=== PATIENT | female | born 1945 | race Caucasian/White ===

== ENCOUNTER 2022-02-02 09:04 | Outpatient (CLI) | payer MEDICARE, BC, SELFPAY ==
[2022-02-02 13:48] LABS: Chloride* 101 mmol/L (96-114); Sodium* 135 mmol/L (135-149)
[2022-02-02 13:50] LABS: Cholesterol* 159 mg/dL (90-199)
[2022-02-02 13:51] LABS: Blood Urea Nitrogen* 12 mg/dL (7-30); Calcium* 9.4 mg/dL (8.4-10.6); Carbon Dioxide* 24 mmol/L (20-32); Creatinine* 0.7 mg/dL (0.5-1.5); Estimated Glomerular Filt Rate 89 ml/min; Glucose* 91 mg/dL (60-115); Triglycerides* 66 mg/dL (40-149)
[2022-02-02 13:52] LABS: HDL Cholesterol* 77 mg/dL (>=50); LDL Cholesterol Calculated 69 mg/dL (<100)
== END 2022-02-02 09:05 | disposition home or self-care (01) ==
PROVIDERS: PCP Family Medicine; Visit Provider Family Medicine
DX: Z00.00 Encounter for general adult medical examination without abnormal findings (principal); E78.5 Hyperlipidemia, unspecified; I10 Essential (primary) hypertension; E03.9 Hypothyroidism, unspecified; I48.91 Unspecified atrial fibrillation
CPT/HCPCS: 80048; 80061; 84443

== ENCOUNTER 2022-06-13 11:16 | Outpatient (CLI) | payer MEDICARE, BC, SELFPAY ==
[2022-06-13 18:22] LABS: Chloride* 102 mmol/L (96-114); Sodium* 135 mmol/L (135-149)
[2022-06-13 18:23] LABS: Potassium* 4.7 mmol/L (3.6-5.1)
[2022-06-13 18:25] LABS: Creatinine* 0.8 mg/dL (0.5-1.5); Estimated Glomerular Filt Rate 76 ml/min
[2022-06-13 18:26] LABS: Blood Urea Nitrogen* 13 mg/dL (7-30); Calcium* 9.1 mg/dL (8.4-10.6); Carbon Dioxide* 26 mmol/L (20-32); Glucose* 82 mg/dL (60-115)
== END 2022-06-13 11:17 | disposition home or self-care (01) ==
LOC: LONREF 11:17
PROVIDERS: PCP Family Medicine; Visit Provider Family Medicine
DX: Z01.818 Encounter for other preprocedural examination (principal)
CPT/HCPCS: 80048

== ENCOUNTER 2022-06-20 06:34 | Day surgery (SDC) | payer MEDICARE, BC, SELFPAY ==
[2022-06-20 07:00] VITALS: BP 174/74; PULSE 61; RESP 16; TEMP 36.9; O2SAT 98
[2022-06-20] MEDS: TETRACAINE 0.5% OPHTH 1 DROP EYE-RIGHT ×2 (07:00)
[2022-06-20] MEDS: KETOROLAC OPHTH 0.5% 1 DROP EYE-RIGHT ×2 (07:00→07:05)
[2022-06-20 07:17] VITALS: BMI 35.7
--- NOTE | 2022-06-20 07:21 | SUR.PREOP ---
The eye drops brought by the patient (Ketorolac and Prednisolone) are examined and I have determined they are labeled by the patient's pharmacy for this patient as prescribed by the surgeon. The bottles are intact, recently obtained and appear to be correct. [id number]
[2022-06-20] MEDS: TETRACAINE 0.5% OPHTH 2 DROP EYE-RIGHT (08:02)
--- NOTE | 2022-06-20 08:04 | SUR.OPER ---
I discussed the medication alert for latex allergy with intraop ordered medications. Dr. Marleny Parry is aware and was okay with continuing with medications.
[2022-06-20] MEDS: BALANCED SALT IRRIG SOLN 15 ML EYE-RIGHT (08:06)
--- NOTE | 2022-06-20 08:06 | W.ANESCHARGE ---
Anesthesia Charges Start Date/Time Anesthesia Start Date: 06/20/22 Anesthesia Start Time: 08:00 Stop Date/Time Anesthesia Stop Date: 06/20/22 Anesthesia Stop Time: 08:33 Summary Emergency: No Extremes of Age: Over 70-CPT 67968
[2022-06-20 08:30] VITALS: BP 165/79; PULSE 58; RESP 16; TEMP 36.7; O2SAT 97
--- NOTE | 2022-06-20 08:39 | W.PM.OPTPROC ---
Procedure Note Date of procedure: 06/20/22 Will [facility] bill your pro fee for this procedure?: Yes Procedure Description: SURGEON: Anne Parry MD PREOPERATIVE DIAGNOSIS: Nuclear sclerotic cataract, right eye. POSTOPERATIVE DIAGNOSIS: Nuclear sclerotic cataract, right eye. NAME OF OPERATION: Phacoemulsification of cataract with posterior chamber intraocular lens implantation in the right eye. ANESTHESIA: Topical. ESTIMATED BLOOD LOSS: Less than 2 cc. COMPLICATIONS: None. PATHOLOGY SPECIMEN: None. INDICATIONS: See consult note for details. The risks, benefits and alternatives of the procedure were explained to the patient, who elected to proceed and signed informed consent to do so. PROCEDURE: The patient was brought to the pre-holding area where the right eye was identified as the operative eye. I placed my initials above this eye. The patient received eye drops consisting of 0.5% tetracaine, 1% tropicamide, 10% phenylephrine, and 0.5% ketorolac. The patient was then brought to the operating room where the right eye was again identified as the operative eye. The eye was prepped with Betadine and draped in the usual sterile ophthalmic fashion. A #15 super-sharp blade was used to create a paracentesis site. 1% non-preserved intracameral lidocaine was injected into the anterior chamber. Endocoat was injected into the anterior chamber. A 2.4 mm keratome was used to create a three-plane self-sealing incision 1 mm anterior to the temporal limbus. A cystotome was used to create an anterior capsular leaflet. The Utrata forceps were used to extend this to form a continuous curvilinear capsulorrhexis. Hydrodissection was performed. The cataract was removed with phacoemulsification using the [id number] technique. The irrigation and aspiration tip was used to remove the remaining cortex. Healon was injected into the capsular bag. An CITLALI ZCB00 intraocular lens of 20.0 diopters was injected into the capsular bag. The irrigation and aspiration tip was used to remove the remaining viscoelastic. Balanced salt solution on a cannula was used to hydrate the wound, and the wound was found to be watertight. The pupil was noted to be round. DISPOSITION: The patient was taken to the recovery room and discharged to home in stable condition. The patient was instructed to call me or go to the emergency department with any sudden change, including dramatic loss of vision, severe pain in the eye or eyebrow region, nausea, or vomiting. The patient will follow up in the clinic tomorrow morning. Surgeon: Anne Parry MD
--- NOTE | 2022-06-20 08:44 | W.ANESCHARGE ---
Anesthesia Charges Start Date/Time Anesthesia Start Date: 06/20/22 Anesthesia Start Time: 08:00 Stop Date/Time Anesthesia Stop Date: 06/20/22 Anesthesia Stop Time: 08:33 Summary Emergency: No Extremes of Age: Over 69-CPT 52769
== END 2022-06-20 09:08 | disposition home or self-care (01) ==
PROVIDERS: PCP Family Medicine; Visit Provider Ophthalmology
PROC: (CPT 66984; principal; 2022-06-20 06:45)
DX: H25.11 Age-related nuclear cataract, right eye (principal)
CPT/HCPCS: 66984; 00142; 99100; A9270; J2250; J3010; V2632

== ENCOUNTER 2022-07-04 07:10 | Day surgery (SDC) | payer MEDICARE, BC, SELFPAY ==
[2022-07-04] MEDS: TETRACAINE 0.5% OPHTH 1 DROP EYE-LEFT ×2 (07:36→07:44)
[2022-07-04] MEDS: KETOROLAC OPHTH 0.5% 1 DROP EYE-LEFT ×2 (07:42→07:50)
[2022-07-04 07:43] VITALS: BMI 36.1
--- NOTE | 2022-07-04 07:43 | SUR.PREOP ---
Home COVID test negative confirmed by sports writer.
--- NOTE | 2022-07-04 07:43 | SUR.PREOP ---
The eye drops brought by the patient (Ketorolac and Prednisolone) are examined and I have determined they are labeled by the patient's pharmacy for this patient as prescribed by the surgeon. The bottles are intact, recently obtained and appear to be correct.
[2022-07-04 08:04] VITALS: BP 165/75; PULSE 64; RESP 16; TEMP 37; O2SAT 98
[2022-07-04] MEDS: SODIUM CHLORIDE 0.9 % (FLUSH) 10 ML SYRINGE IVF (08:23)
[2022-07-04] MEDS: TETRACAINE 0.5% OPHTH 2 DROP EYE-LEFT (08:48)
--- NOTE | 2022-07-04 08:53 | W.ANESCHARGE ---
Anesthesia Charges Start Date/Time Anesthesia Start Date: 07/04/22 Anesthesia Start Time: 08:46 Stop Date/Time Anesthesia Stop Date: 07/04/22 Summary Emergency: No Extremes of Age: Over 69-CPT 28251
[2022-07-04] MEDS: BALANCED SALT IRRIG SOLN 15 ML EYE-LEFT (08:54)
--- NOTE | 2022-07-04 09:18 | W.ANESCHARGE ---
Anesthesia Charges Start Date/Time Anesthesia Start Date: 07/04/22 Anesthesia Start Time: 08:46 Stop Date/Time Anesthesia Stop Date: 07/04/22 Anesthesia Stop Time: 09:23 Summary Emergency: No Extremes of Age: Over 69-CPT 97107
[2022-07-04 09:21] VITALS: BP 158/82; PULSE 62; RESP 16; TEMP 36.3; O2SAT 97
--- NOTE | 2022-07-04 09:24 | W.ANESCHARGE ---
Anesthesia Charges Start Date/Time Anesthesia Start Date: 07/04/22 Anesthesia Start Time: 08:46 Stop Date/Time Anesthesia Stop Date: 07/04/22 Anesthesia Stop Time: 09:23 Summary Emergency: No Extremes of Age: Over 69-CPT 78028
--- NOTE | 2022-07-04 10:18 | P.OPTPRC_ITS ---
Procedure Note Date of procedure: 07/04/22 Will [facility] bill your pro fee for this procedure?: Yes Procedure Description: SURGEON: Anne Parry MD PREOPERATIVE DIAGNOSIS: Nuclear sclerotic cataract, left eye. POSTOPERATIVE DIAGNOSIS: Nuclear sclerotic cataract, left eye. NAME OF OPERATION: Phacoemulsification of cataract with posterior chamber intraocular lens implantation in the left eye. ANESTHESIA: Topical. ESTIMATED BLOOD LOSS: Less than 2 cc. COMPLICATIONS: None. PATHOLOGY SPECIMEN: None. INDICATIONS: See consult note for details. The risks, benefits and alternatives of the procedure were explained to the patient, who elected to proceed and sign ed informed consent to do so. PROCEDURE: The patient was brought to the pre-holding area where the left eye was identified as the operative eye. I placed my initials above this eye. The patient received eye drops consisting of 0.5% tetracaine, 1% tropicamide, 10% phenylephrine, and 0.5% ketorolac. The patient was then brought to the operating room where the left eye was again identified as the operative eye. The eye was prepped with Betadine and draped in the usual sterile ophthalmic fashion. A #15 super-sharp blade was used to create a paracentesis site. 1% non-preserved intracameral lidocaine was injected into the anterior chamber. Endocoat was injected into the anterior chamber. A 2.4 mm keratome was used to create a three-plane self-sealing incision 1 mm anterior to the temporal limbus. A cystotome was used to create an anterior capsular leaflet. The Utrata forceps were used to extend this to form a continuous curvilinear capsulorrhexis. Hydrodissection was performed. The cataract was removed with phacoemulsification using the [id number]-ikhlqka technique. The irrigation and aspiration tip was used to remove the remaining cortex. Healon was injected into the capsular bag. An CITLALI ZCB00 intraocular lens of 18.5 diopters was injected into the capsular bag. A posterior capsular tear was noted at 11 o'clock postition extending toward the 4 o'clock position. There was no vitreous loss. The irrigation and aspiration tip was used to remove the remaining viscoelastic. Miostat was injected into the anterior chamber. Balanced salt solution on a cannula was used to hydrate the wound, and the wound was found to be watertight. The pupil was noted to be round. DISPOSITION: The patient was taken to the recovery room and discharged to home in stable condition. The patient was informed of the posterior capsular tear and of the increased risks including possible lens dislocation. The patient was instructed to call me or go to the emergency department with any sudden change, including dramatic loss of vision, severe pain in the eye or eyebrow region, nausea, or vomiting. The patient will follow up in the clinic tomorrow morning. Surgeon: Anne Parry MD
== END 2022-07-04 09:50 | disposition home or self-care (01) ==
PROVIDERS: PCP Family Medicine; Visit Provider Ophthalmology
PROC: (CPT 66984; principal; 2022-07-04 07:30)
DX: H25.12 Age-related nuclear cataract, left eye (principal)
CPT/HCPCS: 66984; 00142; 99100; A9270; J2250; J3010; V2632

== ENCOUNTER 2023-02-06 08:35 | Outpatient (CLI) | payer MEDICARE, BC, SELFPAY | END 2023-02-06 08:36 | disposition home or self-care (01) | PROVIDERS: PCP Family Medicine; Visit Provider Family Medicine | DX: E78.5 Hyperlipidemia, unspecified (principal); E03.9 Hypothyroidism, unspecified; I10 Essential (primary) hypertension | CPT/HCPCS: 80048; 80061; 84443 ==

== ENCOUNTER 2023-03-22 10:29 | Outpatient (CLI) | payer MEDICARE, BC, SELFPAY | END 2023-03-22 10:30 | disposition home or self-care (01) | LOC: LONREF 10:30 | PROVIDERS: PCP Family Medicine; Visit Provider Family Medicine | DX: R35.0 Frequency of micturition (principal) | CPT/HCPCS: 87086 ==

== ENCOUNTER 2023-08-14 07:17 | Day surgery (SDC) | payer MEDICARE, BC, SELFPAY ==
[2023-08-14] VITALS (26 sets, daily range): BP systolic 97–153; BP diastolic 50–97; PULSE 50–67; RESP 12–16; TEMP 35.2–36.6; O2SAT 93–98; BMI 33.7
--- OUTSIDE RECORDS SUMMARY | 2023-08-14 07:19 | XMS_ITS | Clinical Summary ---
Author Name Unknown Organization [employer] [facility] Address [place], [place] [address] Care Team Providers Care Cutter In Name Role Phone Des Kapoor MD Primary Care Provider [phone] Allergies Active Allergy Reactions Criticality Noted Date Comments Codeine Nausea Only Doxazosin Palpitations 08/06/2008 Hydrochlorothiazide Hyponatremia 07/07/2008 Latex Rash 01/07/2013 Blisters Amlodipine Edema 09/29/2008 Medications Medication Sig Dispensed Refills Start Date End Date Status MULTIVITAMIN TAB take 1 tablet by oral route once daily with food 0 06/10/2007 Active ASPIRIN 81 MG TAB, DELAYED RELEASE take 1 tablet (81 mg) by oral route once daily 0 06/10/2007 Active CALCIUM 600 + D(3) 600 MG (1,500)-200 UNIT TAB 1 tablet daily 0 05/11/2009 Active VITAMIN D 1,000 UNIT CAP one capsule daily 0 05/27/2009 Active diltiazem CR (TAZTIA XT) 360 mg capsule Take 1 capsule by mouth once daily. 90 capsule 3 10/21/2009 Active flaxseed oil 1,000 mg Cap Take 1 capsule by mouth once daily. 0 04/24/2010 Active OMEPRAZOLE ORAL Take 40 mg by mouth 2 times daily. 0 Active magnesium 250 mg Tab Take 250 mg by mouth once daily. 0 Active losartan (COZAAR) 100 mg tablet 0 06/19/2016 Active metoprolol succinate (TOPROL XL) 25 mg Sustained-Release tablet Take 1 tablet by mouth once daily. 0 07/10/2016 Active levothyroxine (SYNTHROID) 88 mcg tablet Take 1 tablet by mouth once daily. 0 08/14/2016 Active furosemide (LASIX) 20 mg tablet Take 1 tablet by mouth every morning. 0 08/14/2016 Active atorvastatin (LIPITOR) 10 mg tablet Take 1 tablet by mouth once daily. 0 08/14/2016 Active Active Problems Problem Noted Date Diagnosed Date Acute colitis 01/07/2013 Leucocytosis 01/07/2013 ACP (advance care planning) 01/07/2013 Overview: Patient has identified Health Care Agent(s): No Add Health Care Agents: No Patient has Advance Care Plan Documents (Health Care Directive, POLST): No, referral made to Social Work Services. Patient has identified Specific Treatment Preferences: Yes Specific Treatment Preferences: a.) Code Status: CPR/Attempt Resuscitation Colon polyp 05/30/2011 Overview: Colonoscopy 05/2011 polyp repeat in 5 years GERD (gastroesophageal reflux disease) 0 Overview: EGD 04/2010 normal Special screening for malignant neoplasms, colon 05/11/2009 Actinic keratosis 01/07/2009 Unspecified hypothyroidism 06/10/2007 Unspecified essential hypertension 06/10/2007 Resolved Problems Problem Noted Date Diagnosed Date Resolved Date Infected sebaceous cyst 10/22/200812/20 [facility] (current) use of anticoagulants 10/04/2008 11/24/2008 Immunizations Name Administration Dates Next Due AMB Influenza, IIV3 (Age >=3 years)(Flu Clinic O y) 05/19/2008 Influenza Virus, Unspecified 04/15/2009 Influenza, IIV3 (Age >=3 years) 06/10/2007 Td, Preservative Free (age >= 7 Years) 8 Family History * Patient is adopted Medical History Relation Name Comments Cancer Father cancer of the l ip Cancer-colon Father Other Father of alzheim ers. had valve replacement in 70s. Cancer-breast Maternal Aunt Arthritis Mother Heart Disease Mother has pacemaker, murmur Osteoporosis Mother Osteoporosis Sister Relation Name Status Comments Father Maternal Aunt Mother Sister Social History Tobacco Use Types Packs/Day Years Used Date Smoking Tobacco: Never Smokeless Tobacco: Never Tobacco Cessation:Counseling Given: Yes Alcohol Use Standard Drinks/Week Comments No 0 (1 standard drink = 0.6 oz pur e alcohol) Sex and Gender Information Value Date Recorded Sex Assigned at Not on file Gender Identity Not on file Sexual Orientation Not on file Obstetrics History Last Filed Vital Signs Vital Sign Reading Time Taken Comments Blood Pressure 129/79 08/14/2016 9:33 AM CONTINUOUS DRYOUT OPERATOR HELPER Pulse 49 08/14/2016 9:33 AM CONTINUOUS DRYOUT OPERATOR HELPER Temperature 36.4 ??C (97.6 ??F) 07/10/2016 10:[address] Respiratory Rate 14 06/26/2016 10:59 AM CONTINUOUS DRYOUT OPERATOR HELPER Oxygen Saturation 96% 08/14/2016 9:33 AM CONTINUOUS DRYOUT OPERATOR HELPER Inhaled Oxygen Concentration - - Weight 83 kg (183 lb) 08/14/2016 9:33 AM CONTINUOUS DRYOUT OPERATOR HELPER Height 148.6 cm (4' 10.5) 01/08/2013 8:06 AM CD T Body Mass Index 37.6 01/08/2013 8:06 AM CDT Plan of Treatment Health Maintenance Due Date Last Done Comments COVID-19 vaccine series (#1) 06/07/1945 Tdap 12/06/1955 Depression screening for age 12+ 1956 BMI (ht and wt on same day) for age 18+ 1962 Hepatitis C screening for age 18-79 1962 Zoster (shingles) series for age 50+ (1 of 2) 1994 Pneumococcal series for age 65+ (1 of 1 - PCV) 2009 Tetanus booster 01/06/2018 01/07/2008 Influenza for age 65+ 03/22/2023 04/15/2009 , 05/19/2008, 06/10/2007 DEXA/DXA scan for age 65+ Completed 06/10/2009 Advance Directives Latest Code Status on File Code Status Date Activated Date Inactivated Comments Full Code 01/07/2013 10:25 PM 01/15/2013 5:09 PM Care Teams Cutter In Relationship Specialty Start Date End Date Des Kapoor MD PCP - General Family Practice 01/15/13
[2023-08-14] MEDS: SODIUM CHLORIDE 0.9 % (FLUSH) 10 ML SYRINGE IVF (08:00)
[2023-08-14] MEDS: LACTATED RINGERS 1000 ML 1,000 ML 100 ML IV ×2 (08:00→10:44)
[2023-08-14] MEDS: OXYCODONE (CR) 10 MG TAB.ER.12H PO (08:00)
[2023-08-14] MEDS: ACETAMINOPHEN 500 MG TABLET 1000 MG PO ×3 (08:00→19:52)
--- NOTE | 2023-08-14 08:13 | CRLHL7_ITS ---
For Patients: As a result of the Cures Act, medical imaging exams and procedure reports are released immediately into your electronic medical record. You may view this report before your referring provider. If you have questions, please contact your health care provider. Indication: POST OP TKA Technique: Two views right knee Findings/Impression: Hardware from a right total knee arthroplasty is in satisfactory position. Bone alignment is normal. No sign of acute fracture. Postop changes are within normal limits. Dictated by Cory Weeks MD @ 08/14/2023 4:00:44 PM (Electronically Signed)
--- NOTE | 2023-08-14 08:52 | SUR.PREOP ---
TIME?OUT:?0943 PT/RN/MDA?VERIFICATION?OF?SURGICAL?SITE,?PROCEDURE,?AND?CONSENT OBTAINED?PRIOR?TO?INVASIVE?PROCEDURE.
[2023-08-14] MEDS: fentaNYL 100 MCG/2 ML inj IVP (09:44)
[2023-08-14] MEDS: MIDAZOLAM HCL 1 MG/ML inj IVP (09:44)
--- NOTE | 2023-08-14 10:04 | W.PM.H&PU ---
History & Physical Update History & Physical Update H&P Reviewed and patient assessed: No changes noted
[2023-08-14] MEDS: CEFAZOLIN 2 GM in 0.9 % SODIUM CHLORIDE Mini-bag 100 ML IVPB (10:06)
[2023-08-14] MEDS: TRANEXAMIC ACID 100 MG/ML INJ 1000 MG IV (10:16)
--- NOTE | 2023-08-14 11:28 | P.ORPRC_ITS ---
Procedure Note Date of procedure: 08/14/23 Procedure: PREOPERATIVE DIAGNOSIS: 1. Right knee osteoarthritis, primary, severe POSTOPERATIVE DIAGNOSIS: 1. Right knee osteoarthritis, primary, severe PROCEDURE: 1. Right total knee arthroplasty-modifier 22, of note, given significant os teopenia and excessive porosity to the cancellous bone, a stem was added to the tibial implant which required increased time (25%) and instrument availability and assistance to improve the likelihood of stability to the tibial component. SURGEON: John Campos MD. SUPERVISOR TICKET SALES: Andrea SMITH - Of note, a skilled technical services assistant was critical for this case to aid in patient positioning, tissue retraction, limb manipulation/positioning, and closure. ANESTHESIA: Spinal anesthetic IMPLANTS: DePuy J&J all cemented TKA - Attune PS femur size 4 standard, size 3 stemmed tibia, 5 poly spacer, 35 mm patella TOURNIQUET: 80 minutes at 300 torr EBL: 50 ml COMPLICATIONS: None evident INDICATIONS: The patient is a pleasant 77-year-old female who has experienced severe right knee pain and difficulty bearing weight. Workup included x-rays which revealed severe osteoarthrosis in the knee. Given the deformity, the dysfunction, and the pain, as well as the failure of nonoperative management, recommendation was made for surgery. FINDINGS: Full-thickness chondral loss diffusely throughout the lateral and patellofemoral compartments. To lesser degree medial compartment. Degenerative meniscus pathology in both compartments. Severe porosity of the cancellous bone especially involving the distal femur and proximal tibia. Upon irrigating the bone, the bone was simply being washed away. It was for this reason the stem was added to the tibial component to improve its likelihood of stability/longevity. DESCRIPTION OF PROCEDURE: Following a thorough discussion of risks, benefits, and alternatives consent was obtained and the right knee was marked. The patient was brought to the operating room and placed supine on the operating table. Induction of anesthesia was undertaken. 2 g IV Ancef and 1 g tranexamic acid was administered within 1 hr of incision preoperatively. Proper time-out was performed identifying proper patient, site, procedure. The operative extremity was prepped and draped in the appropriate sterile fashion using ChloraPrep after the patient was positioned supine with all bony prominences well padded. A longitudinal, anterior, midline skin incision was made starting approximately 3cm proximal to the superior pole of the patella and advanced distal to the tibial tubercle. A median parapatellar arthrotomy was created. A medial subperiosteal sleeve was created with knife, martin elevator and curved osteotome. The retropatellar fatpad was resected and the synovium in the suprapatellar pouch excised to visualize the anterior femoral cortex. Femoral preparation was performed via an intramedullary guide. Step drill allowed access into the femoral canal. The distal cutting guide was placed with 5? of valgus and 10 mm cut on the distal femur. Femur was sized using a posterior referencing guide as well as trans epicondylar axis and Whitesides line for reference. 3? of external rotation was found have the best match with the trans epicondylar axis. This found have a best fit with the sizing noted above. The 4 in 1 cutting block was then placed, and the distal femur shaped accordingly. The box cut was then created and the trial implant inserted to confirm appropriate fit. We turned our attention to the proximal tibia. Extramedullary guide was utilized for cutting with the goal of being 90 degree cut from the mechanical axis of the tibia in the varus/valgus plane utilizing tibial crest as the primary alignment. Initially a 3 mm resection was performed from the medial tibial plateau. An additional 2 mm did require resection to achieve appropriate gaps in both flexion and extension. Ultimately, balancing was achieved in both flexion and extension in both varus and valgus. The knee was able to achieve full extension as well comfortably. The patella was initially measured and found have a thickness of 21 mm. It was resected back to approximately 13.5 mm. It was sized to be a best fit with as noted above. This was drilled, trial placed. All trials were placed and found to have an excellent stability and balance. At this stage, trial implants were removed, the knee was thoroughly irrigated with normal saline, and the cement was mixed. After irrigation, the knee was thoroughly dried, and cement placed, with the real tibial and femoral implants placed along with the patella. Trial poly spacer was placed and confirmed to have excellent range of motion and full extension, and the real poly spacer opened and inserted. All extra cement was removed, and a 3 min Betadine soak performed. Finally, a final irrigation round with normal saline was performed. Closure performed with 0 Vicryl and #0 Stratafix for the quad tendon/retinaculum. 2-0 Vicryl for the subcutaneous and 4-0 Stratafix for subcuticular closure. Dressings were applied and the patient was awoken from anesthesia after the tourniquet deflated and transferred the PACU in stable condition. A skilled technical services assistant was critical for this case to aid in patient positioning, tissue retraction, bone exposure, limb manipulation/positioning, patient safety, and closure. *Again, given significant osteopenia and excessive porosity to the cancellous bone, a stem was added to the tibial implant which required increased time (25%) and instrument availability and assistance to improve the likelihood of stabil ity to the tibial component. PLAN: 1. Weight bear as tolerated operative extremity. 2. 23 hr perioperative antibiotics. 3. Ice. 4. PT/OT consults for ambulation assistance/mobility education. 5. Social work consult for discharge planning. 6. DVT prophylaxis with at SCDs, Khai Hose, and aspirin twice daily.
--- NOTE | 2023-08-14 11:35 | P.NB_ITS ---
Nerve Block Nerve Block Time Seen by Provider: 09:50 Date Seen: 08/14/23 Type of block requested by surgeon for post-operative analgesia: adductor canal Side: right Time out performed: Yes Verification of patient name: Yes Verification of date of : Yes Site marking: site marked Name of person performing procedure: Felix Assistants, if any: Chato Continuous monitoring Was continuous monitoring of O2 sat, B/P, monitoring and evaluation advisor, recorded every 15 minutes?: Yes Procedure Checklist: sterile prep, needles and gloves Ultrasound guided. Images saved: Yes Medications given in 5ml increments after negative aspiration: Ropivicaine %: 0.5 mL: 20 Needle gauge: 20 Decadron (mg): 10 Precedex (mcg): 25 Patient tolerated procedure well: Yes Additional comments: Needle noted adjacent to nerve Block Charges Block Charge (with Pro Fee): Femoral Nerve Use of Ultrasound Machine for Block: Yes- US Guidance/pain block
--- NOTE | 2023-08-14 11:35 | W.ANESCHARGE ---
Anesthesia Charges Start Date/Time Anesthesia Start Date: 08/14/23 Anesthesia Start Time: 09:56 Stop Date/Time Anesthesia Stop Date: 08/14/23 Anesthesia Stop Time: 12:11 Summary Extremes of Age - Over 70 or under 1: MDA
--- NOTE | 2023-08-14 11:36 | P.NB_ITS ---
Nerve Block Nerve Block Time Seen by Provider: 09:50 Date Seen: 08/14/23 Type of block requested by surgeon for post-operative analgesia: geniculars Side: right Time out performed: Yes Verification of patient name: Yes Verification of date of : Yes Site marking: site marked Name of person performing procedure: Felix Assistants, if any: hserlyn Continuous monitoring Was continuous monitoring of O2 sat, B/P, cafeteria monitor, recorded every 15 minutes?: Yes Procedure Checklist: sterile prep, needles and gloves Medications given in 5ml increments after negative aspiration: Ropivicaine %: 0.5 mL: 9 Needle gauge: 25 Patient tolerated procedure well: Yes Block Charges Block Charge (with Pro Fee): Genicular Nerve Block Use of Ultrasound Machine for Block: No
--- NOTE | 2023-08-14 12:17 | W.ANESCHARGE ---
Anesthesia Charges Start Date/Time Anesthesia Start Date: 08/14/23 Anesthesia Start Time: 09:56 Stop Date/Time Anesthesia Stop Date: 08/14/23 Anesthesia Stop Time: 12:11 Summary Extremes of Age - Over 70 or under 1: ARTIST SUSPECT
[2023-08-14] MEDS: ONDANSETRON 2 MG/ML inj 4 MG IVP (14:06)
--- NOTE | 2023-08-14 14:39 | P.IMCN_ITS ---
Date of Consult Patient: [facility] Patient Consult date: 08/14/23 Requesting Physician: Orthopedics Primary Care Provider: Des Kapoor MD Consult Narrative Reason for consult: afib, GERD, hypothyroidism, HTN, hyperlipidemia Narrative: Antonietta Gilbert is a 77 year old female with h/o intermittent atrial fibrillation, HTN, hyperlipidemia, hypothyroidism, and GERD who underwent an elective right total knee arthroplasty today by Dr. Martínez. She is feeling emotional this afternoon. She tells me her dad had dementia and she notices her memory is going and that scares her. OT had just been in the room with her, which I think brought up these concerns. Review of Systems Status of ROS: Reports: 6 or more systems reviewed and unremarkable except as noted in History and below [facility] Medical History (Updated 08/14/23 @ 14:52 by Regi Mendoza MD) Osteoarthritis of right knee ?M17.11 - Unilateral primary osteoarthritis, right knee (ICD-10) Osteoarthritis of left knee ?M17.12 - Unilateral primary osteoarthritis, left knee (ICD-10) Adenomatous colon polyp ?D12.6 - Benign neoplasm of colon, unspecified (ICD-10) Obesity (03/22/10) ?E66.9 - Obesity, unspecified (ICD-10) History of atrial fibrillation ?Z86.79 - Personal history of other diseases of the circulatory system (ICD- 10) Hypothyroidism (03/22/10) ?E03.9 - Hypothyroidism, unspecified (ICD-10) Hypertension (03/22/10) ?I10 - Essential (primary) hypertension (ICD-10) Hyperlipidemia (03/22/10) ?E78.5 - Hyperlipidemia, unspecified (ICD-10) Gastroesophageal reflux disease (03/22/10) ?K21.9 - Gastro-esophageal reflux disease without esophagitis (ICD-10) Diverticulosis (03/11/13) ?K57.90 - Diverticulosis of intestine, part unspecified, without perforation or abscess without bleeding (ICD-10) Hiatal hernia (03/22/10) ?K44.9 - Diaphragmatic hernia without obstruction or gangrene (ICD-10) Seasonal allergies ?J30.2 - Other seasonal allergic rhinitis (ICD-10) Ischemic colitis ?K55.9 - Vascular disorder of intestine, unspecified (ICD-10) Fracture of proximal end of humerus ?S42.209A - Unspecified fracture of upper end of unspecified humerus, initial encounter for closed fracture (ICD-10) Surgical History (Updated 08/14/23 @ 14:59 by Regi Mendoza MD) S/P total knee arthroplasty ?Z96.659 - Presence of unspecified artificial knee joint (ICD-10) Hx of tonsillectomy ?Z90.89 - Acquired absence of other organs (ICD-10) H/O cataract removal with insertion of prosthetic lens ?Z98.49 - Cataract extraction status, unspecified eye (ICD-10) ?Z96.1 - Presence of intraocular lens (ICD-10) History of total hysterectomy with bilateral salpingo-oophorectomy (BSO) ?Z90.710 - Acquired absence of both cervix and uterus (ICD-10) ?Z90.722 - Acquired absence of ovaries, bilateral (ICD-10) ?Z90.79 - Acquired absence of other genital organ(s) (ICD-10) Trigger thumb, right thumb (01/28/07) ?M65.311 - Trigger thumb, right thumb (ICD-10) S/P right knee arthroscopy (10/21/07) ?Z98.890 - Other specified postprocedural states (ICD-10) Trigger thumb, left thumb (07/13/08) ?M65.312 - Trigger thumb, left thumb (ICD-10) S/P total left hip arthroplasty (01/01/02) ?Z96.642 - Presence of left artificial hip joint (ICD-10) S/P total right hip arthroplasty (09/28/08) ?Z96.641 - Presence of right artificial hip joint (ICD-10) History of arthroscopy of right shoulder (04/10/11) ?Z98.890 - Other specified postprocedural states (ICD-10) Status post cholecystectomy ?Z90.49 - Acquired absence of other specified parts of digestive tract (ICD- 10) Status post carpal tunnel release of both wrists ?Z98.890 - Other specified postprocedural states (ICD-10) History of bladder repair surgery ?Z98.890 - Other specified postprocedural states (ICD-10) History of arthroscopy of left shoulder (12/02/07) ?Z98.890 - Other specified postprocedural states (ICD-10) Family History (Updated 08/14/23 @ 14:55 by Regi Mendoza MD) Father Heart valve replaced Alzheimers disease Mother High blood pressure Social History (Updated 08/14/23 @ 14:57 by Regi Mendoza MD) Narrative: -Elia. 2 adult children. Retired. Never smoker. Denies EtOH or recreational drugs. What is your current living situation?: I presently have a place to live Problems where you live: no known problems In the past 12 months, utilities in danger of being shut off: no In past 12 months, lack of transportation kept you from medical appts, meetings, work, or getting things needed for daily living: no In the past 12 mos, have been you worried that your food would run out before you had money to buy more?: never true In the past 12 mos, the food you bought just didn't last and you didn't have money to buy more?: never true Highest level of school completed/degree received: some college, no degree Smoking Status: Never smoker Do you use any of these nicotine containing products: None Second hand tobacco smoke exposure: No How often do you have a drink containing alcohol: never How often do you have six or more drinks on one occasion: Never AUDIT-C Alcohol total score: 0 Non-prescribed substance use: denies use Caffeine: Yes (2 cups) How often does anyone, including family, friends and others, physically hurt you : never How often does anyone, including family, friends and others, insult or talk down to you: never How often does anyone, including family, friends and others, threaten you with harm: never How often does anyone, including family, friends and others, scream or curse at you: never service: No Meds Home Medications and Allergies Home Medications Medication Instructions Recorded Confirmed Type aspirin 81 mg tablet,delayed 81 mg PO MOWEFR 02/02/22 08/14/23 History release calcium carbonate 600 mg-vitamin 1 tab PO DAILY 02/02/22 08/14/23 History D3 10 mcg (400 unit) tablet magnesium 250 mg tablet 250 mg PO DAILY 02/02/22 08/14/23 History multivitamin (Daily Multi-Vitamin 1 tab PO DAILY 02/02/22 08/14/23 History tablet) flaxseed oil 1,000 mg capsule 1,200 mg PO DAILY 07/09/23 08/14/23 History phenazopyridine 95 mg tablet (Azo 95 mg PO DAILY PRN 07/09/23 08/14/23 History Urinary Pain Relief) phytosterol 300 mg-pantethine 100 1 cap PO DAILY 07/09/23 08/14/23 History mg capsule (CholestOff Complete) atorvastatin 10 mg tablet 10 mg PO HS 08/13/23 08/14/23 History celecoxib 200 mg capsule 200 mg PO DAILY 08/13/23 08/14/23 History diltiazem HCl 360 mg capsule,24 360 mg PO HS 08/14/23 08/14/23 History hr,extended release Allergies Allergy/AdvReac Type Severity Reaction Status Date / Time codeine Allergy Severe nausea, Verified 08/14/23 08:36 vomiting amlodipine Allergy Unknown Verified 08/14/23 08:36 doxazosin Allergy Unknown Verified 08/14/23 08:36 hydrochlorothiazide Allergy Unknown Verified 08/14/23 08:36 latex Allergy Unknown Verified 08/14/23 08:36 Exam Narrative: Exam Narrative: General: Tearful. No respiratory distress. Awake alert oriented x3. HEENT: Normocephalic atraumatic, pupils equally round and reactive to light and accommodation. Oropharynx clear. Mucous membranes are moist. No cervical lymphadenopathy, thyromegaly or carotid bruits. No JVD. Cardiovascular: Regular rate and rhythm. No murmurs, gallops, or rubs. Chest: No increased work of breathing. Clear to auscultation bilaterally. No crackles or wheezes. Abdomen: Bowel sounds present. Soft, nondistended, nontender. No hepatosplenomegaly or masses. Extremities: Right knee bandage is clean, dry, and intact. No edema, no cyanosis or clubbing. Skin: No jaundice, no pallor, no rashes. Const: Vital Signs, click to edit/add: Vital Signs - 24 hr 08/14/23 07:57 08/14/23 09:45 08/14/23 09:50 Temperature 97.9 F Pulse Rate 55 L 51 L 51 L Respiratory Rate 16 16 16 Blood Pressure 146/66 H 131/55 L 125/57 L Pulse Oximetry 97 98 97 Oxygen Delivery Me thod Room Air Nasal Cannula Nasal Cannula Oxygen Flow Rate 2 2 08/14/23 12:10 08/14/23 12:15 08/14/23 12:20 Temperature 97.8 F Pulse Rate 54 L 52 L 51 L Respiratory Rate 12 12 12 Blood Pressure 97/50 L 97/50 L 102/55 L Pulse Oximetry 93 93 95 Oxygen Delivery Me thod Room Air Room Air Room Air Oxygen Flow Rate 08/14/23 12:25 08/14/23 12:30 08/14/23 12:35 Temperature Pulse Rate 50 L 51 L 50 L Respiratory Rate 12 12 12 Blood Pressure 106/55 L 116/57 L 116/57 L Pulse Oximetry 95 96 95 Oxygen Delivery Me thod Room Air Room Air Room Air Oxygen Flow Rate 08/14/23 12:40 Temperature 97.3 F L Pulse Rate 50 L Respiratory Rate 12 Blood Pressure 120/55 L Pulse Oximetry 95 Oxygen Delivery Me thod Room Air Oxygen Flow Rate Assessment and Plan Assessment and plan (1) S/P total knee arthroplasty: Problem comment: Right, Dr. Martínez 08/14/23 Status: Acute (2) History of atrial fibrillation: Problem comment: - Intermittent. - According to Dr. Kapoor's note 07/26/2023, he notes that it is infrequent enough that she has not required anticoagulation for this. She is in sinus rhythm now. Status: Chronic (3) Hypertension: Status: Chronic (4) Hyperlipidemia: Status: Chronic (5) Hypothyroidism: Status: Chronic (6) Gastroesophageal reflux disease: Status: Chronic (7) Osteoarthritis of right knee: Problem comment: Severe Status: Chronic (8) Obesity: Problem comment: BMI 33.8 Status: Chronic Plan 77 year old female with h/o intermittent atrial fibrillation, HTN, hyperlipidemia, hypothyroidism, and GERD who underwent an elective right total knee arthroplasty today by Dr. Martínez. Routine post op cares. Low dose aspirin BID for VTE prophylaxis in the postop period. Since blood pressures tend to be low 1st POD, will hold antihypertensives with the exception of metoprolol and diltiazem (to provide rate control for h/o afib). Continue all other home medications.
[2023-08-14] MEDS: OXYCODONE 5 MG TABLET PO ×2 (18:05→23:20)
[2023-08-14] MEDS: CEFAZOLIN 1 GM in 0.9 % SODIUM CHLORIDE Mini-bag 100 ML IVPB (18:08)
--- NOTE | 2023-08-14 18:48 | PC.NURSE ---
End of shift: patient alert and oriented. VSS. On RA. IV patent and SL. Patient tolerating a reg. diet. Wilfrido. Plexi pulses, cryo cuff to op site, Dressing C/D/I. PRN oxy administered x1.
[2023-08-14] MEDS: ATORVASTATIN 10 MG TABLET PO (21:06)
[2023-08-14] MEDS: ASPIRIN 81 MG TABLET EC PO (21:06)
[2023-08-14] MEDS: dilTIAZem 180 MG CAP (CD) 360 MG PO (21:06)
[2023-08-14] MEDS: SENNOSIDES 1 TAB TABLET 2 TAB PO (21:08)
[2023-08-15] MEDS: CEFAZOLIN 1 GM in 0.9 % SODIUM CHLORIDE Mini-bag 100 ML IVPB ×2 (01:05→08:31)
[2023-08-15] MEDS: ACETAMINOPHEN 500 MG TABLET 1000 MG PO ×2 (01:48→08:30)
[2023-08-15] MEDS: OXYCODONE 5 MG TABLET PO ×3 (03:21→11:09)
[2023-08-15 03:23] VITALS: BP 148/76; PULSE 73; RESP 16; TEMP 36.4; O2SAT 97
[2023-08-15] MEDS: OMEPRAZOLE 20 MG CAPSULE DR 40 MG PO (06:32)
[2023-08-15] MEDS: LEVOTHYROXINE 88 MCG TABLET PO (06:32)
[2023-08-15 06:51] LABS: Hematocrit 35.9 % (33.0-51.0); Hemoglobin* 12.2 gm/dL (12.0-16.0); Immature Granulocytes Pct Auto 0.1 %; Lymphocytes Percent Auto 5.9 % (20-44); Mean Corpuscular HGB Conc 34 gm/dL (32-36); Mean Corpuscular Hemoglobin 31 pg (26-34); Mean Corpuscular Volume 90 fL (80-100); Monocytes Percent Auto 5.6 % (0.0-11.0); Neutrophils Percent Auto 88.4 % (42.0-72.0); Platelet Count* 261 K/uL (140-440); RDW Coefficient of Variation % 12.6 % (11.5-15.5); Red Blood Count 3.97 m/uL (4.00-5.20); White Blood Count* 16.05 K/uL (4.50-11.00)
[2023-08-15 06:52] LABS: Slide Review Reflex No
[2023-08-15 07:00] VITALS: BP 130/60; PULSE 57; RESP 16; TEMP 36.3; O2SAT 97; O2SAT 98
--- NOTE | 2023-08-15 07:01 | PC.NURSE ---
Shift note [id number]: Pt noted to be alert & oriented x 4 and able to make needs known. CMS to RLE noted to be intact. Dressing to R knee noted to be C/D/I. Pt able to transfer/ambulate with SBA using FWW and GB. Pt has been continent of bladder. Pain has been controlled with rest, repositioning, scheduled Tylenol, cryo cuff and PRN Oxycodone with pt reporting pain to be 4-5/10 with movement. Pt put call light on early this morning though was noted to have gotten out of bed independently wearing cryo cuff and plexi pulses. Staff answered call light to assist pt to bathroom and she was then educated regarding risk for fall. Bed alarm utilized after noting this. Pt noted to become teary and stated, ?I?m mad at myself. I thought I was at home when I first got out of bed but then I remembered I wasn?t?. Staff reassured pt that we are just ensuring her safety and want to prevent potential fall. Pt verbalized understanding. IV patent and SL after receiving IV ABX per order.
[2023-08-15 07:15] LABS: Potassium* 4.4 mmol/L (3.6-5.1); Sodium* 135 mmol/L (135-149)
[2023-08-15 07:18] LABS: Creatinine* 0.6 mg/dL (0.5-1.5); Est. Creatinine Clearance* 54.16; Estimated Glomerular Filt Rate 92 ml/min
[2023-08-15 07:19] LABS: Blood Urea Nitrogen* 11 mg/dL (7-30)
[2023-08-15] MEDS: MAGNESIUM OXIDE 400 MG TABLET PO (09:11)
[2023-08-15] MEDS: ASPIRIN 81 MG TABLET EC PO (09:11)
[2023-08-15] MEDS: SENNOSIDES 1 TAB TABLET 2 TAB PO (09:12)
[2023-08-15] MEDS: CELECOXIB 200 MG CAPSULE PO (09:12)
[2023-08-15] MEDS: MULTIVITAMIN/MINERALS 1 TABLET 1 TAB PO (09:12)
[2023-08-15] MEDS: METOPROLOL SUCCINATE (XL) 25 MG TAB PO (09:13)
[2023-08-15] MEDS: FUROSEMIDE 40 MG TABLET PO (09:13)
--- NOTE | 2023-08-15 10:10 | PM.ORPN ---
Subjective Subjective Date Seen: 08/15/23 Principal diagnosis: Status postop day 1 right total knee arthroplasty Interval history: Patient reports doing well. No acute events over night. Pain managed with scheduled and PRN medications, ice. DVT prophylaxis: 81 mg aspirin by mouth twice daily, bilateral knee high Khai stockings, SCDs, walking. Denies fevers, chills, aches, N/V, CP, SOB/FUENTES, or lightheadedness. Reports she has had low appetite for the past few years. She is concerned about the bandage. Ortho Exam Narrative Exam Narrative: -Patient appears comfortable; no apparent acute distress -Alert and oriented times 3 -Operative knee mildly swollen; soft tissues supple; no ecchymosis; no erythematous streaking Warmth appropriate -Surgical dressing clean, dry, intact; no drainage -Bilateral calfs soft; no significant swelling, edema, tenderness, erythema, discoloration, warmth, or palpable cords -2+ DP/PT pulses, intact dermatomes and myotomes distally (5/5 strength) Const Vital Signs, click to edit/add: Vital Signs - 24 hr 08/14/23 12:10 08/14/23 12:15 08/14/23 12:20 Temperature 97.8 F Pulse Rate 54 L 52 L 51 L Pulse Rate [Left Pulse Oximeter] Respiratory Rate 12 12 12 Blood Pressure 97/50 L 97/50 L 102/55 L Blood Pressure [Right Arm] Pulse Oximetry 93 93 95 Oxygen Delivery Method Room Air Room Air Room Air Oxygen Flow Rate 08/14/23 12:25 08/14/23 12:30 08/14/23 12:35 Temperature Pulse Rate 50 L 51 L 50 L Pulse Rate [Left Pulse Oximeter] Respiratory Rate 12 12 12 Blood Pressure 106/55 L 116/57 L 116/57 L Blood Pressure [Right Arm] Pulse Oximetry 95 96 95 Oxygen Delivery Method Room Air Room Air Room Air Oxygen Flow Rate 08/14/23 12:40 08/14/23 12:52 08/14/23 13:00 Temperature 97.3 F L 95.4 F L 96.4 F L Pulse Rate 50 L Pulse Rate [Left Pulse Oximeter] 55 L Respiratory Rate 12 12 12 Blood Pressure 120/55 L Blood Pressure [Right Arm] 126/73 126/56 L Pulse Oximetry 95 96 96 Oxygen Delivery Method Room Air Room Air Room Air Oxygen Flow Rate 2 08/14/23 13:15 08/14/23 13:30 08/14/23 13:45 Temperature 95.4 F L 95.4 F L 97.6 F Pulse Rate Pulse Rate [Left Pulse Oximeter] 57 L 56 L 56 L Respiratory Rate 12 12 12 Blood Pressure Blood Pressure [Right Arm] 126/73 134/60 139/63 Pulse Oximetry 98 97 97 Oxygen Delivery Method Room Air Room Air Room Air Oxygen Flow Rate 08/14/23 14:00 08/14/23 14:30 08/14/23 15:00 Temperature 97.6 F 97.6 F Pulse Rate Pulse Rate [Left Pulse Oximeter] 57 L 58 L Respiratory Rate 16 16 Blood Pressure Blood Pressure [Right Arm] 128/66 134/68 Pulse Oximetry 95 97 96 Oxygen Delivery Method Room Air Room Air Oxygen Flow Rate 08/14/23 15:00 08/14/23 16:00 08/14/23 17:00 Temperature 96.9 F L 96.9 F L 97.0 F L Pulse Rate Pulse Rate [Left Pulse Oximeter] 60 59 L 55 L Respiratory Rate 16 16 16 Blood Pressure Blood Pressure [Right Arm] 136/62 140/97 H 142/64 H Pulse Oximetry 96 94 95 Oxygen Delivery Method Room Air Room Air Room Air Oxygen Flow Rate 08/14/23 18:00 08/14/23 18:15 08/14/23 19:57 Temperature 97.0 F L 95.4 F L 97.3 F L Pulse Rate 54 L Pulse Rate [Left Pulse Oximeter] 56 L 67 Respiratory Rate 16 12 16 Blood Pressure Blood Pressure [Right Arm] 153/78 H 126/73 135/62 Pulse Oximetry 95 94 Oxygen Delivery Method Room Air Room Air Room Air Oxygen Flow Rate 08/14/23 23:00 08/14/23 23:15 08/14/23 23:27 Temperature 97.3 F L Pulse Rate Pulse Rate [Left Pulse Oximeter] 63 63 Respiratory Rate 16 16 Blood Pressure Blood Pressure [Right Arm] 138/66 Pulse Oximetry 97 97 Oxygen Delivery Method Room Air Oxygen Flow Rate 0 08/15/23 03:23 08/15/23 07:00 08/15/23 07:00 Temperature 97.6 F 97.4 F L Pulse Rate Pulse Rate [Left Pulse Oximeter] 73 57 L Respiratory Rate 16 16 Blood Pressure Blood Pressure [Right Arm] 148/76 H 130/60 Pulse Oximetry 97 97 98 Oxygen Delivery Method Room Air Room Air Oxygen Flow Rate 0 Assessment and Plan Assessment and plan (1) S/P total knee arthroplasty: Problem details: Right, Dr. Martínez 08/14/23 Status: Acute (2) History of atrial fibrillation: Problem details: - Intermittent. - According to Dr. Kapoor's note 07/26/2023, he notes that it is infrequent enough that she has not required anticoagulation for this. She is in sinus rhythm now. Status: Chronic (3) Hypertension: Status: Chronic (4) Hyperlipidemia: Status: Chronic (5) Hypothyroidism: Status: Chronic (6) Gastroesophageal reflux disease: Status: Chronic (7) Osteoarthritis of right knee: Problem details: Severe Status: Chronic (8) Obesity: Problem details: BMI 33.8 Status: Chronic Plan - Complete 23 hour perioperative antibiotics. - PT/OT consult for education and assistance. - Social work consult for discharge planning - Prescribed analgesics as needed - DVT prophylaxis: 81 mg aspirin by mouth twice daily, bilateral knee high Khai Hose stockings and SCDs - Anticipation is for discharge to home with spouse 08/15/2023 if the patient remains medically stable, pain is controlled, and they are safe with mobilization.
--- NOTE | 2023-08-15 11:49 | PC.NURSE ---
Pt discharged w/ spouse @ 1130. VSS. RA. Pain w/ movement of 4-5, controlled w/ tylenol and oxy. Decreased appetite, but did eat 50% of breakfast. Has not had BM since Saturday, hypo BS, not passed gas- provider aware. CMS intact to right leg. Dressing on knee- c/d/i. PIV removed- catheter intact. Pt sent w/ d/c instructions, own walker, and cryo cuff. Marisol King RN
== END 2023-08-15 11:30 | disposition home or self-care (01) ==
LOC: OR 07:17 → MEDSURG 07:19
PROVIDERS: PCP Family Medicine; Visit Provider Orthopaedic Surgery Sports Medicine
PROC: (CPT 27447; principal; 2023-08-14 09:15)
DX: M17.11 Unilateral primary osteoarthritis, right knee (principal); G89.18 Other acute postprocedural pain; M85.80 Other specified disorders of bone density and structure, unspecified site; I10 Essential (primary) hypertension; K21.9 Gastro-esophageal reflux disease without esophagitis; E66.9 Obesity, unspecified; Z68.33 Body mass index [BMI] 33.0-33.9, adult; E78.5 Hyperlipidemia, unspecified; E03.9 Hypothyroidism, unspecified
CPT/HCPCS: 27447; 01402; 36415; 64447; 64454; 73560; 76942; 82565; 84132; 84295; 84520; 85025; 97110; 97116; 97162; 97165; 97530; 97535; 99100; A9153; A9270; C1776; J0690; J1100; J2250; J2405; J2704; J2795; J3010; J7120

== ENCOUNTER 2023-10-18 11:00 | Outpatient (RCR) | payer MEDICARE, BC, SELFPAY ==
--- NOTE | 2023-08-07 14:21 | PT.OPEX ---
PT [facility] Outpatient Eval PT [facility] Outpatient Eval Start: 08/07/23 12:22 Freq: Status: Active Protocol: Document 08/07/23 12:22 GENA (Rec: 08/07/23 14:20 [facility] [id number]) E-signed By Sarah Banks PT Physical Therapy Outpatient Evaluation Insurance Information Insurance Name Medicare B Medical Diagnosis RIGHT KNEE DJD M17.11 Treating Diagnosis RIGHT KNEE PAIN M25.561 WEAKNESS R53.1 Referring MD NOWAK Subjective Subjective PATIENT IS HERE AFTER SEVERAL YEARS OF KNEE PAIN AND DYSFUNCTION. SHE STATES,IT'S JUST BEEN GETTING WORSE AND WORSE AND THAT PAIN HAS GOTTEN BAD. SHE IS ACCOMPANIED BY HER SPOUSE, NANCY, WHO WILL BE ASSISTING HER IN HER RECOVERY. SHE DESCRIBES GUM IRRITATION IN THE PAST SEVERAL WEEKS WHERE HER DENTIST INSTRUCTED HER TO HAVE A SALTWATER RINSE SEVERAL TIMES A DAY. SHE IS CONCERNED THAT IT MAY BE AN INFECTION NOW AND IS GOING TO THE DENTIST TOMORROW FOR FURTHER ASSESSMENT. Pain Comments Date of Last Physician Visit 07/19/24 Date of Surgery (If applicable) 08/14/23 Current Work Status Retired Preferred Name ALAN Precautions Treatment Precautions/Contraindications LATEX ALLERGY Assessment Assessment/Impression PATIENT IS A 77 [address] NOWAK FOR PREOPERATIVE TRAINING AND INSTRUCTIONS FOR HER UPCOMING TKA (08/14/23). PMHX INCLUDES BUT NOT LIMITED TO R 2008/L 2001 KIRK, THUMB TRIGGER FINGER, HTN, LATEX ALLERGY. HLD, GERD, H/O INTERMITTENT AFIB, DJD/OA BILATERAL KNEES DIVERTICULOSIS , H/O PROXIMAL HUMERAL FX, BILATERAL CARPAL TUNNEL RELEASE, H/O LEFT SHOULDER ARTHROSCOPY, H/O RECENT FALL. PATIENT LIVES WITH HER SPOUSE, NANCY, IN A ONE STORY HOME WITH 2 STEPS TO ENTER AND RAILING BOTH SIDES. HER HOME IS SET UP WITH ALL HER NEEDS MET ON THE FIRST FLOOR AND WILL PLAN TO INITIALLY SLEEP IN HER RECLINER UNTIL SHE CAN GET IN/OUT OF HER BED THAT SHE CURRENTLY REQUIRES A STEP TO ACCESS. SHE A STEP IN TUB/ SHOWER WITH SHOWER BENCH AND SUGGESTED THAT SHE GET SUCTION GRAB HANDLES BARS TO ASSIST TRANSFERRING IN/OUT OF THE TUB. SHE IS SEEN TODAY FOR PREOPERATIVE EDUCATION/ INFORMATION AND EXERCISES ON HER UPCOMING TKA INCLUDING SAFETY INFORMATION EQUIPMENT RECOMMENDATIONS/INSTRUCTIONS AND THE USE OF FWW. SHE HAS BEEN USING A STANDARD WALKER BUT HAS ACCESS TO FWW. REVIEWED PT/OT PLAN DURING HER HOSPITAL STAY WITH HER SURGERY SCHEDULED FOR 08/14/23. HER KNEE MEASURES 0-0-112 WITH MMT KNEE FLEX 4/5 AND KNEE EXT 4/5. SHE DEMONSTRATES PAIN ABOUT THE MEDIAL JOINT LINE AND EXPERIENCED PAIN WITH MAX MM CONTRACTION. PATIENT WOULD BENEFIT FROM SKILLED PHYSICAL THERAPY FOR SYMPTOM MGMT, IMPROVED ROM, IMPROVED KNEE/LE MOBILITY/STRENGTH, IMPROVED GAIT, BALANCE/ PROPRIOCEPTION TRAINING, AND ESTABLISHMENT OF HEP. PATIENT VERBALIZED UNDERSTANDING TO ALL SKILLED INSTRUCTION AND IN AGREEMENT WITH POC AND FREQ. Primary Functional Limitations STAIRS AMB FOR PROLONGED PERIODS SQUATTING STOOPING KNEELING TRANSFERS Plan of Care Rehabilitation Potential Good Physical Therapy Goals PREOP GOALS: 1. PATIENT WILL BE EDUCATED IN TKA PRE/POSTOP SAFETY, MOBILITY AND EXERCISES WITH WRITTEN INSTRUCTIONS PROVIDED WITH PATIENT RETURNING POSTOPERATIVELY FOR TREATMENT. PATIENT GOALS WILL UPDATED WHEN PATIENT RETURNS POSTOPERATIVELY PER TKA REHABILITATION GOALS. Coordination/Communication With Referral Source Treatment Plan/Direct Interventions Gait Training,Ice/Cold/ Vasopneumatic,Joint Mobilization,Manual Therapy, Neuromuscular Re-ed,Self-Care/ Home Management,Therapeutic Activities,Therapeutic Exercises Frequency/Duration 2 VISITS/WEEK FOR 8-12 WEEKS Patient Will Be Discharged From Therapy Completion of LTG(s), Independently Progressing Evaluation Billing Untimed Code Treatment Minutes 15 PT Eval No Charge No Complexity Low Certification Information Initial Certification Date 08/07/23 Ending Certification Date 11/04/23 Provider Signature Shows Agreement With POC & Medical Necessity Physician Signature & Date Requested Please Sign/Date Here Physician Comment/Change : Physician NPI Number #
== END 2023-11-07 16:33 | disposition home or self-care (01) ==
PROVIDERS: PCP Family Medicine; Visit Provider Orthopaedic Surgery Sports Medicine
DX: M17.11 Unilateral primary osteoarthritis, right knee (principal); Z51.89 Encounter for other specified aftercare
CPT/HCPCS: 87086; 87186; 97110; 97140; 97161; 97164; 97535

== ENCOUNTER 2023-10-19 09:42 | Outpatient (CLI) | payer MEDICARE, BC, SELFPAY | END 2023-10-19 09:43 | disposition home or self-care (01) | LOC: NFLDREF 10-21 10:36 | PROVIDERS: PCP Family Medicine; Referring Provider Family Medicine; Visit Provider Nurse Practitioner Family | DX: N30.90 Cystitis, unspecified without hematuria (principal); N76.0 Acute vaginitis; B95.1 Streptococcus, group B, as the cause of diseases classified elsewhere | CPT/HCPCS: 87086; 87186 ==

== ENCOUNTER 2023-11-15 13:40 | Outpatient (CLI) | payer MEDICARE, BC, SELFPAY ==
--- OUTSIDE RECORDS SUMMARY | 2023-11-15 13:42 | XMS_ITS | Clinical Summary ---
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 Active magnesium 250 mg Tab Take 250 mg by mouth once daily. Active losartan (COZAAR) 100 mg tablet 06/19/2016 Active metoprolol succinate (TOPROL XL) 25 [...] by mouth once daily. 0 08/14/2016 Active celecoxib (CELEBREX) 100 mg capsule Take 100 mg by mouth. 08/14/2023 Active oxyCODONE (ROXICODONE) 5 mg immediate release tablet Take 5 mg by mouth every 4 hours if needed for Pain. 08/28/2023 Active rOPINIRole (REQUIP) 0.5 mg tablet Take 0.5 mg by mouth at bedtime. 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 10/04/2008 11/24/2008 Encounters Date Type Department Care Team Description 09/15/2023 3:15 PM SHELL SORTER Office Visit [facility] [address] [place] [address] [place] Cloudy urine (Cloudy urine x 1 week without dysuria) 09/15/2023 Travel from Last 3 Months Immunizations Name Administration Dates Next Due AMB Influenza, IIV3 (Age >=3 years)(Flu Clinic [facility] n[facility]) 05/19/2008 Influenza Virus, Unspecified 04/15/2009 Influenza, IIV3 [...] Sign Reading Time Taken Comments Blood Pressure 168/60 09/15/2023 3:58 PM SHELL SORTER Pulse 66 09/15/2023 3:58 PM SHELL SORTER Temperature 36.6 ??C (97.8 ??F) 09/15/2023 3:58 PM CS T Respiratory Rate 16 09/15/2023 3:58 PM SHELL SORTER Oxygen Saturation 97% 09/15/2023 3:58 PM SHELL SORTER Inhaled Oxygen Concentration - - Weight 72.6 kg (160 lb) 09/15/2023 3:58 PM SHELL SORTER Height 148.6 cm (4' 10.5) 01/08/2013 8:06 AM CD T Body Mass Index - - Plan of Treatment Health Maintenance Due Date Last Done Comments Tdap 12/06/1956 Depression screening for age 12+ 1956 BMI (ht and wt on same day) for age 18+ 1962 Hepatitis C screening for ag e 18-79 1962 Zoster (shingles) series for age 50+ (1 of 2) 1994 Medicare Wellness for age 65+ 2009 Pneumococcal series for age 65+ (1 of 1 - PCV) 2009 Tetanus booster 01/06/2018 01/07/2008 Influenza for age 65+ 03/22/2024 04/15/2009 , 05/19/2008, 06/10/2007 DEXA/DXA scan for age 65+ Completed 06/10/2009 COVID-19 vaccine series Completed 05/09/20, 05/02/2022, 10/23/2021, Additional history exists Procedures Procedure Name Priority Date/Time Associated Diagnosis Comments URINALYSIS MICROSCOPIC STAT 09/15/2023 3:42 PM SHELL SORTER Urinary tract infection symptoms URINE CULTURE STAT 09/15/2023 3:42 PM SHELL SORTER Urinary tract infection symptoms UA W/ SEDIMENT EXAM REFLEXED PER CRITERIA STAT 09/15/2023 3:42 PM SHELL SORTER Urinary tract infection symptoms XR DXA BONE DENSITY 2 SITES AXIAL Routine 06/10/2009 10:50 AM SHELL SORTER Screening for Osteoporosis from Last 3 Months or Most Recently Relevant to Health Maintenance Results * (ABNORMAL) URINALYSIS MICROSCOPIC (09/15/2023 3:42 PM SHELL SORTER) RBC 3-5(A) 0-2, None Seen /HPF 09/15/2023 4:04 PM SHELL SORTER [facility] WBC >100(A) 0-2, 3-5, None Seen /HPF 09/15/2023 4:04 PM SHELL SORTER [facility] BACTERIA Moderate(A ) None Seen, Rare, Few Bacteria/ HPF 09/15/2023 4:04 PM SHELL SORTER [facility] EPITHELIAL CELLS Few None Seen, Few Epi/HPF 09/15/2023 4:04 PM SHELL SORTER [facility] Urine URINE SPECIMEN / Unknown Non-Blood / Unknown 09/15/2023 3:42 PM SHELL SORTER 09/15/2023 3:46 PM SHELL SORTER Sridevi Max NP URINE [facility] [address] [place] [address] * (ABNORMAL) URINE CULTURE [64416.2] (09/15/2023 3:42 PM SHELL SORTER) CULTURE RESULT(A) 09/18/2023 7:11 AM SHELL SORTER [facility] CULTURE >100,000 CFU/mL Escherichia coli 09/18/2023 7:11 AM SHELL SORTER [facility] Urine URINE SPECIMEN / Unknown Non-Blood / Unknown 09/15/2023 3:42 PM SHELL SORTER 09/15/2023 3:46 PM SHELL SORTER Narrative Organism Antibiotic Method Susceptibility Escherichia coli TRIMETHOPRIM/SULF >=16/304: R Escherichia coli AMPICILLIN >=32: R Escherichia coli CEFAZOLIN-UC <=4: S Comment:Cefazolin-UC interpretations are for therapy of uncomplicated UTIs due to E.coli, K.pneumoniae, or P.mirablis. Cefazolin breakpoint is used as a surrogate to predict results for the oral agents - cefdinir, cefuroxime, and cephalexin, when used for therapy of uncomplicated UTIs due to E coli, K, pneumoniae, and P. mirabilis. The FDA recommends cefadroxil susceptibility can be deduced from cefazolin. Escherichia coli GENTAMICIN <=1: S Escherichia coli CEFTRIAXONE <=1: S Escherichia coli CEFTAZIDIME <=1: S Escherichia coli LEVOFLOXACIN <=0.12: S Escherichia coli CIPROFLOXACIN <=0.25: S Escherichia coli PIPERACILLIN/TAZO <=4: S Escherichia coli AMPICILLIN/SULBACTAM 16: I Escherichia coli CEFEPIME <=1: S Escherichia coli TOBRAMYCIN <=1: S Escherichia coli MEROPENEM <=0.25: S Escherichia coli NITROFURANTOIN <=16: S Sridevi Max NP MICROBIOLOGY [facility] [address] [place] [address], * (ABNORMAL) UA W/ SEDIMENT EXAM REFLEXED PER CRITERIA (UA w/ reflex micro if positive) [02124.2] (09/15/2023 3:42 PM SHELL SORTER) COLOR Yellow Yellow Color 09/15/2023 4:03 PM [facility] CLARITY Clear Clear Clarity 09/15/2023 4:03 PM [facility] SPECIFIC GRAVITY,URINE 1.010 1.010, 1.015, 1.020, 1.025 09/15/2023 4:03 PM [facility] PH,URINE 6.5 6.0, 7.0, 8.0, 5.5, 6.5, 7.5, 8.5 09/15/2023 4:03 PM [facility] UROBILINOGEN, QUALITATIVE Normal Normal EU/dl 09/15/2023 4:03 PM [facility] PROTEIN, URINE Negative Negative mg/dL 09/15/2023 4:03 PM [facility] GLUCOSE, URINE Negative Negative mg/dL 09/15/2023 4:03 PM [facility] KETONES,URINE Negative Negative mg/dL 09/15/2023 4:03 PM [facility] BILIRUBIN,URI NE Negative Negative 09/15/2023 4:03 PM [facility] OCCULT BLOOD,URINE Small(A) Negative 09/15/2023 4:03 PM [facility] NITRITE Positive(A) Negative 09/15/2023 4:03 PM [facility] LEUKOCYTE ESTERASE Large(A) Negative 09/15/2023 4:03 PM [facility] Urine URINE SPECIMEN / Unknown Non-Blood / Unknown 09/15/2023 3:42 PM SHELL SORTER 09/15/2023 3:46 PM SHELL SORTER Sridevi Max NP URINE Performing Organization Address [facility]/State/ZIP Co de Phone Number [facility] [address] [place] [address] * XR DEXA BONE DENSITY 2 SITES (06/10/2009 10:50 AM SHELL SORTER) Anatomical Region Laterality Modality Spine, HIPS, HIPL, HIPR Other 06/10/2009 10:5 0 AM SHELL SORTER Narrative 06/13/2009 2:49 PM SHELL SORTER Please see scanned document for results of this study. Procedure Note Jennifer Lombardo - 06/21/2009 Please see scanned document for results of this study. Nicki Sarmiento MD DEXA from Last 3 Months or Most Recently Relevant to Health Maintenance Advance Directives * Full Code (Latest Code Status on File) Date Activated Date Inactivated Comments 01/07/2013 10:25 PM 01/15/2013 5:09 PM Care Teams [employer] Relationship Specialty Start Date End Date Des Kapoor MD PCP - General Family Practice 01/15/13
== END 2023-11-15 13:41 | disposition home or self-care (01) ==
LOC: NFLDREF 13:41
PROVIDERS: PCP Family Medicine; Visit Provider Obstetrics & Gynecology
DX: N39.0 Urinary tract infection, site not specified (principal)
CPT/HCPCS: 87086

== ENCOUNTER 2024-02-28 15:16 | Outpatient (CLI) | payer MEDICARE, BC, SELFPAY ==
--- OUTSIDE RECORDS SUMMARY | 2024-02-28 15:25 | XMS_ITS | Clinical Summary ---
Author Organization [facility] Address [address] [facility] [place] [address] Care Team Providers Care Emergency Medicine Specialist Name Role Phone Tierra Musa MD Unavailable [phone] France Martinez MD Unavailable Bridgett Garcia PA-C Unavailable [phone] Grant Gray MD Unavailable [phone] Grant Gray MD Unavailable [phone] [facility] Primary Care Provider Allergies Active Allergy Reactions Criticality Noted Date Comments Amlodipine 11/20/2023 Codeine Nausea and Vomiting High 11/20/2023 Doxazosin 11/20/2023 Hydrochlorothiazide 11/20/2023 Latex 11/20/2023 Medications Medication Sig Dispensed Refills Start Date End Date Status acetaminophen (TYLENOL) 162.5 mg half-tab Take by mouth every 4 hours as needed 4 Active atorvastatin (LIPITOR) 10 MG tablet Take 10 mg by mouth every evening 4 Active Calcium Carb-Cholecalcife rol (CALCIUM CARBONATE-VITAMIN D3 PO) Take 1 tablet by mouth 2 Active Flaxseed, Linseed, (FLAXSEED OIL) 1000 MG CAPS Take by mouth daily 3 Active levothyroxine (SYNTHROID/LEVOTH ROID) 88 MCG tablet Take 88 mcg by mouth every morning Active losartan (COZAAR) 100 MG tablet Take 100 mg by mouth every morning Active furosemide (LASIX) 40 MG tablet Take 40 mg by mouth every morning Active metoprolol succinate ER (TOPROL XL) 25 MG 24 hr tablet Take 25 mg by mouth every morning Active diltiazem ER (TIAZAC) 360 MG 24 hr ER beaded capsule Take 360 mg by mouth every evening Active MAGNESIUM PO Take 250 mg by mouth daily Active omeprazole (PRILOSEC) [address] capsule Take 40 mg by mouth every morning Active Phenazopyridine HCl (AZO TABS PO) 3 Active nitroFURantoin macrocrystal-mono hydrate (MACROBID) 100 MG capsuleIndication s:Recurrent UTI Take 1 capsule (100 mg) by mouth daily 90 capsule 1 4 Active aspirin 81 MG EC tablet Take 81 mg by mouth three times a week M, W, Fr Active multivitamin (CENTRUM SILVER) tablet Take 1 tablet by mouth daily Active ibuprofen (ADVIL/MOTRIN) 400 MG tabletIndications :S/P laparoscopic surgery Take 1 tablet (400 mg) by mouth every 6 hours as needed for other (mild and/or inflammatory pain) 60 tablet 4 Active acetaminophen (TYLENOL) 325 MG tabletIndications :S/P laparoscopic surgery Take 3 tablets (975 mg) by mouth every 6 hours as needed for mild pain 50 tablet 4 Active senna-docusate (SENOKOT-S/MARCELO LACE) 8.6-50 MG tabletIndications :S/P laparoscopic surgery Take 1-2 tablets by mouth 2 times daily as needed for constipation (While on oral opioids.) 30 tablet 4 Active estradiol (ESTRACE) 0.1 MG/GM vaginal creamIndications: Vaginal atrophy Place 1 g vaginally three times a week 42.5 g 3 4 Active estradiol (ESTRACE) 0.1 MG/GM vaginal creamIndications: Vaginal atrophy Place 1 g vaginally three times a week 42.5 g 3 4 02/10/20 24 Discontinued oxyCODONE (ROXICODONE) 5 MG tabletIndications :S/P laparoscopic surgery Take 1 tablet (5 mg) by mouth every 6 hours as needed for pain 6 tablet 4 02/13/20 24 Active Problems Problem Noted Date Diagnosed Date Atrial fibrillation, unspecified type 12/04/2023 Ischemic colitis (H24) 12/04/2023 Encounters Date Type Department Care Team Description 02/10/2024 7:37 AM CDT Anesthesia Event [facility] [address] [place] [phone] Rekha Patel Sara E, PA-C 02/10/2024 7:30 AM CDT - 02/10/2024 11:30 AM CDT Surgery [facility] [address] [place] [phone] Grant Gray MD ROBOT-ASSISTED SACROCOLPOPEXY WITH CYSTOSCOPY 02/10/2024 5:22 AM CDT - 02/10/2024 6:07 PM CDT Hospital Encounter [facility] PreOP/Phase II [address], [address] [place], [place] [phone] Grant Gray MD S/P laparoscopic surgery (Primary Dx) Discharge Disposition: Home or Self Care 02/10/2024 Orders Only [facility] [place] [address], [address] [place] [phone] Grant Gray MD Vaginal atrophy 02/10/2024 Travel 01/22/2024 MyC Medical Advice [facility] [address], [address] [place] [phone] Grant Gray MD 01/20/2024 Telephone [facility] [address] [facility], [address] [place] [phone] Grant Gray MD Appointment 01/13/2024 12:30 PM CDT Lab [facility] [address] 1st [place] [phone] Preop examination; Vaginal prolapse 01/13/2024 11:15 AM CDT Office Visit [facility] Pre[facility] [address] [place] [phone] Bridgett Garcia PA-C Preop examination (Primary Dx); Vaginal prolapse 01/13/2024 Results Only [facility] [address] [place] [phone] Bridgett Garcia PA-C 01/13/2024 Travel 01/13/2024 PRE VISIT [facility] Preoperative Assessment [address] [place] [phone] Bridgett Garcia PA-C 01/01/2024 Orders Only [facility] [place] [address], [address] [place] [phone] Grant Gray MD Recurrent UTI (Primary Dx) 01/01/2024 MyC Medical Advice [address], [address] [place] [address] Grant Gray MD 12/25/2023 12:40 PM CDT Office Visit [facility] [address] [place] [phone] Karina Joiner MD Dysuria (Primary Dx); Acute cystitis without hematuria 12/25/2023 Travel 12/11/2023 Orders Only [facility] [address] [place] [address] Grant Gray MD Frequent UTI (Primary Dx) 12/08/2023 10:20 AM CDT Office Visit [facility] [address] [place] [phone] Karina Joiner MD Acute cystitis without hematuria (Primary Dx); Dysuria 12/08/2023 Travel 12/06/2023 MyC Medical Advice [address], [address] [place] [phone] Grant Gray MD 2023 2:00 PM CDT Lab [facility] [address] [place] [address] Frequent UTI 2023 Orders Only [facility] [address] [place] [phone] Grant Gray MD Frequent UTI (Primary Dx) 2023 MyC Medical Advice [facility] [address] [place] [address], [address] [place] [phone] Grant Gray MD 2023 MyC Medical Advice [facility] [address] [facility] [address] [phone] Merissa Yeboah CMA 12/04/2023 9:30 AM CDT Office Visit [facility] [address] [place] [address], [address] [place] [phone] Grant Gray MD Vaginal atrophy (Primary Dx); Retention of urine, unspecified; Prolapse of vaginal vault after hysterectomy; Frequent UTI; Benign essential hypertension; Atrial fibrillation, unspecified type (H); Ischemic colitis (H24) 12/04/2023 Telephone [facility] [address] [facility] [address] [phone] Merissa Yeboah CMA 12/04/2023 Travel from Last 3 Months Family History Medical History Relation Comments Anesthesia Reaction No family hx of Venous thrombosis No family hx of Social History Tobacco Use Types Packs/Day Years Used Date Smoking Tobacco: Never Smokeless Tobacco: Never Tobacco Cessation:Counseling Given: Not Answered Alcohol Use Standard Drinks/Week Comments Not Currently 0 (1 standard drink = 0.6 oz pur e alcohol) PHQ-2 Answer Date Recorded PHQ-2 Score 0 01/13/2024 Adolescent Education Answer Date Record ed Getting School Help Needed Not on file 04/27 Sex and Gender Information Value Date Recorded Sex Assigned at Not on file Gender Identity Not on file Sexual Orientation Not on file Last Filed Vital Signs Vital Sign Reading Time Taken Comments Blood Pressure 124/69 02/10/2024 5:30 PM CDT Pulse 61 02/10/2024 5:30 PM CDT Temperature 36.1 ??C (96.9 ??F) 02/10/2024 5:30 PM CD T Respiratory Rate 15 02/10/2024 5:30 PM CDT Oxygen Saturation 97% 02/10/2024 5:30 PM CDT Inhaled Oxygen Concentration - - Weight 70.8 kg (156 lb 1.6 oz) 02/10/2024 5:50 A M CDT Height 149.9 cm (4' 11) 02/10/2024 5:50 AM CDT Body Mass Index 31.53 02/10/2024 5:50 AM CDT Plan of Treatment Upcoming Encounters Date Type Department Care Team (Late st Contact Info) Description 03/25/2024 10:00 AM CDT Office Visit [address], [address] [place] [phone] Grant Gray MD [address] [place] [address] Health Maintenance Due Date Last Done Comments ADVANCE CARE PLANNING 1945 ANNUAL REVIEW OF HM ORDERS 1944 DEXA 1944 LIPID 1944 TSH W/FREE T4 REFLEX 1944 HEPATITIS C SCREENING 1962 RSV VACCINE ( & 60+) (1 - 1-dose 60+ series) 2004 FALL RISK ASSESSMENT 2009 MEDICARE ANNUAL WELLNESS VISIT 2009 COVID-19 Vaccine (2022- season) 2023 05/09/2023, 05/02/2022, 10/23/2021, Additional history exists INFLUENZA VACCINE (#1) 2024 3, 04/05/2022, 04/06/2020, Additional history exists GLUCOSE 02/09/2027 02/10/2024, 01/13/2024 DTAP/TDAP/TD IMMUNIZATION (2 - Td or Tdap) 01/24/2030 01/25/2020, 09/27/2010, 01/07/2008, Additional history exists ZOSTER IMMUNIZATION Completed 04/11/2021, 01/31/2021, 11/19/2006 Pneumococcal Vaccine: 65+ Years Completed 04/03/2023, 06/08/2014, 03/22/2010 PHQ-2 (once per calendar year) Completed 01/13/2024 HPV IMMUNIZATION Aged Out No longer e ligible based on patient's age to complete this topic IPV IMMUNIZATION Aged Out No longer e ligible based on patient's age to complete this topic MENINGITIS IMMUNIZATION Aged Out No l onger eligible based on patient's age to complete this topic RSV MONOCLONAL ANTIBODY Aged Out No l onger eligible based on patient's age to complete this topic Medical Devices Implanted Type Area Biometric Technician Device Identifier Shelf Expiration Date Model / Serial / Lot Mesh Sling Upsylon Y-Mesh [id number] - [id number] Implanted:Qty : 1 on 02/10/2024 by Grant Gray MD at [facility] Mesh N/A: [employer] [id number] 10/19/2026 [id number] / / [id number] Procedures Procedure Name Priority Date/Time Associated Diagnosis Comments BASIC METABOLIC PANEL STAT 02/10/2024 4:58 PM CDT ANE PERIPHERAL/PARAVET EBRAL BLOCK Routine 02/10/2024 1:44 PM CDT ANE AIRWAY ETT PERFORMABLE Routine 02/10/2024 7:46 AM CDT SACROCOLPOPEXY, ROBOT-ASSISTED, WITH CYSTOSCOPY 02/10/2024 7:37 AM CDT Prolapse of vaginal vault after hysterectomy Special Needs *htn-asa CBC WITH PLATELETS Routine 01/13/2024 12 :07 PM CDT Preop examination Vaginal prolapse BASIC METABOLIC PANEL Routine 01/13/2024 12:07 PM CDT Preop examination Vaginal prolapse EKG 12-LEAD COMPLETE W/READ - CLINICS Routine 01/13/2024 11:09 AM CDT EKG 12-LEAD COMPLETE W/READ - CLINICS Routine 01/13/2024 11:09 AM CDT Preop examination URINE CULTURE Routine 12/25/2023 12:38 PM CDT Dysuria URINE MICROSCOPIC EXAM Routine 12/25/2023 12:38 PM CDT Dysuria UA MACROSCOPIC WITH REFLEX TO MICRO AND CULTURE Routine 12/25/2023 12:38 PM CDT Dysuria URINE CULTURE Routine 12/08/2023 10:08 AM CDT Dysuria URINE MICROSCOPIC EXAM Routine 12/08/2023 10:08 AM CDT Dysuria UA MACROSCOPIC WITH REFLEX TO MICRO AND CULTURE Routine 12/08/2023 10:08 AM CDT Dysuria URINE CULTURE Routine 2023 2:00 PM CDT Frequent UTI URINE MICROSCOPIC EXAM Routine 2023 2:00 PM CDT Frequent UTI ROUTINE UA WITH MICROSCOPIC Routine 2023 2:00 PM CDT Frequent UTI from Last 3 Months Results * (ABNORMAL) Basic metabolic panel (02/10/2024 4:58 PM CDT) Only the most recent of2 resultswithin the time period is included. Sodium 134(L) 135 - 145 mmol/L 02/10/2024 5:36 PM CDT LABORATORY Potassium 4.6 3.4 - 5.3 mmol/L 02/10/2024 5:36 PM CDT LABORATORY Chloride 100 98 - 107 mmol/L 02/10/2024 5:36 PM CDT LABORATORY Carbon Dioxide (CO2) 26 22 - 29 mmol/L 02/10/2024 5:36 PM CDT LABORATORY Anion Gap 8 7 - 15 mmol/L 02/10/2024 5:36 PM CDT LABORATORY Urea Nitrogen 12.0 8.0 - 23.0 mg/dL 02/10/2024 5:36 PM CDT LABORATORY Creatinine 0.75 0.51 - 0.95 mg/dL 02/10/2024 5:36 PM CDT LABORATORY GFR Estimate 81 >60 mL/min/1.7 3m2 02/10/2024 5:36 PM CDT LABORATORY Comment:eGFR calculated us2020 CKD-EPI equation. Calcium 9.0 8.8 - 10.4 mg/dL 02/10/2024 5:36 PM CDT LABORATORY Comment:Reference intervals for this test were updated on 02/04/2024 to reflect our healthy population more accurately. There may be differences in the flagging of prior results with similar values performed with this method. Those prior results can be interpreted in the context of the updated reference intervals. Glucose 184(H) 70 - 99 mg/dL 02/10/2024 5:36 PM CDT LABORATORY Blood STRUCTURE OF LEFT UPPER LIMB / Unknown Venipuncture / Unknown 02/10/2024 4:58 PM CDT 02/10/2024 5:00 PM CDT Grant Gray MD LAB - BLOOD ORDERABL ES LABORATORY [facility] Lab [address], [address] [place] [address], [facility] [phone] * Peripheral/Paravertebral Block (02/10/2024 1:44 PM CDT) Narrative Rekha Patel - 02/10/2024 1:44 PM CDT Rekha Patel ? 02/10/2024 ??2:41 PM TAP Procedure Note Pre-Procedure Staff - ? Anesthesiologist: ??Rekha Patel ? Performed By: anesthesiologist ? Location: OR ? Pre-Anesthestic Checklist: patient identified, IV checked, site marked, risks and benefits discussed, informed consent, monitors and equipment checked, pre-op evaluation, at physician/surgeon's request and post-op pain management Timeout: ? Correct Patient: Yes ? Correct Procedure: Yes ? Correct Site: Yes ? Correct Position: Yes ? Correct Laterality: Yes ? Site Marked: Yes Procedure Documentation Procedure: TAP ? Laterality: bilateral ? Patient Position: supine ? Skin prep: Chloraprep ? Local skin infiltrated with 1 mL of 1% lidocaine. ? Needle Type: insulated ? Needle Gauge: 21. ? Needle Length (millimeters): 100 ? Ultrasound guided ? 1. Ultrasound was used to identify targeted nerve, plexus, vascular marker, or fascial plane and place a needle adjacent to it in real-time. ? 2. Ultrasound was used to visualize the spread of anesthetic in close proximity to the above referenced structure. ? 3. A permanent image is entered into the patient's record. ? 4. The visualized anatomic structures appeared normal. ? 5. There were no apparent abnormal pathologic findings. Assessment/Narrative ? The placement was negative for: blood aspirated, painful injection and site bleeding ? Paresthesias: No. ? Bolus given via needle.. ? Secured via. ? Insertion/Infusion Method: Single Shot ? Complications: none Comments: ??Bolus via needle, 25 mL of 0.25% bupivacaine with 1:800,000 epinephrine, bilaterally, for a total of 50 mL. Under ultrasound guidance, a 21 gauge needle was inserted and placed in close proximity to the transversus abdominus plane. Ultrasound was also used to visualize the spread of anesthetic in close proximity to the nerve being blocked. The nerve appeared anatomically normal, and there were no apparent abnormal pathological findings. Patient tolerated well, was mildly sedated but communicative throughout the procedure. A permanent ultrasound image was saved in the patient's record. The surgeon has given a verbal order transferring care of this patient to me for the performance of regional analgesia block for post op pain control. It is requested of me because I am uniquely trained and qualified to perform this block and the surgeon is neither trained nor qualified to perform this procedure. FOR [facility] ([facility]) ONLY: ?? Pain Team Contact information: please page the Pain Team Via [email or web address]. Search Pain. During daytime hours, please page the attending first. At night please page the resident first. Rekha Patel [place] ANESTHESIA * ANE AIRWAY ETT PERFORMABLE (02/10/2024 7:46 AM CDT) Narrative Danni Vargas APRN LINE SUPERVISOR - 02/10/2024 7:46 AM CDT Danni Vargas APRN LINE SUPERVISOR ? 02/10/2024 ??8:19 AM Airway ? Patient location during procedure: OR ? Procedure Start/Stop Times: 02/10/2024 7:46 AM Staff - ? LINE SUPERVISOR: Danni Vargas APRN LINE SUPERVISOR ? Performed By: LINE SUPERVISOR Consent for Airway ? Urgency: elective Indications and Patient Condition ? Indications for airway management: eugenio-procedural ? Induction type:intravenous ? Mask difficulty assessment: 2 - vent by mask + OA or adjuvant +/- NMBA Final Airway Details ? Final airway type: endotracheal airway ? Successful airway: ETT - single Endotracheal Airway Details ? ETT size (mm): 7.0 ? Cuffed: yes ? Successful intubation technique: video laryngoscopy ? VL Blade Size: Molina 3 ? Grade View of Cords: 1 ? Adjucts: stylet ? Position: Right ? Measured from: lips ? Secured at (cm): 21 ? Bite block used: None Post intubation assessment ? Placement verified by: capnometry, equal breath sounds and chest rise ? Number of attempts at approach: 1 ? Number of other approaches attempted: 0 ? Secured with: tape ? Ease of procedure: easy ? Dentition: Intact and Unchanged Medication(s) Administered Medication Administration Time: 02/10/2024 7:46 AM Rekha Patel [place] ANESTHESIA * CBC with platelets (01/13/2024 12:07 PM CDT) Pathologist [facility] WBC Count 7.0 4.0 - 11.0 10e3/uL 01/13/2024 12:14 PM CDT [facility] - CORE LAB RBC Count 4.60 3.80 - 5.20 10e6/uL 01/13/2024 12:14 PM CDT [facility] - CORE LAB Hemoglobin 13.8 11.7 - 15.7 g/dL 01/13/2024 12:14 PM CDT [facility] - CORE LAB Hematocrit 40.6 35.0 - 47.0 % 01/13/2024 12:14 PM CDT [facility] - CORE LAB MCV 88 78 - 100 fL 01/13/2024 12:14 PM CDT [facility] - CORE LAB MCH 30.0 26.5 - 33.0 pg 01/13/2024 12:14 PM CDT [facility] - CORE LAB MCHC 34.0 31.5 - 36.5 g/dL 01/13/2024 12:14 PM CDT [facility] - CORE LAB RDW 13.3 10.0 - 15.0 % 01/13/2024 12:14 PM CDT [facility] - [facility]ORE LAB Platelet Count 300 150 - 450 10e3/uL 01/13/2024 12:14 PM CDT [facility] - CORE LAB Blood STRUCTURE OF RIGHT UPPER LIMB / Unknown Venipuncture / Unknown 01/13/2024 12:07 PM CDT 01/13/2024 12:07 PM CDT Bridgett Garcia PA-C LAB - BLOOD ORDERABL ES [facility] - CORE LAB [facility] - [address] 1st [place] [address] * EKG 12-lead complete w/read - Clinics (01/13/2024 11:09 AM CDT) Systolic Blood Pressure mmHg MUSE Diastolic Blood Pressure mmHg MUSE Ventricular Rate 61 BPM MUSE Atrial Rate 61 BPM MUSE [place] Interval 168 ms MUSE QRS Duration 96 ms MUSE QT 458 ms MUSE QTc 461 ms MUSE P [place] 16 degrees MUSE R AXIS -10 degrees MUSE T [place] 37 degrees MUSE Interpretation ECG Sinus rhythm Inferior infarct (cited on or before 13-JAN-2024) Abnormal ECG When compared with ECG of 13-JAN-2024 11:09, (unconfirmed) No significant change was found Confirmed by MD ANNABELLE, MICHAELA ([id number]) on 01/14/2024 4:35:05 PM MUSE 01/13/2024 11:0 9 AM CDT 01/14/2024 4:35 PM CDT Bridgett Garcia PA-C ECG ORDERABLES MUSE * (ABNORMAL) UA Macroscopic with reflex to Microscopic and Culture (12/25/2023 12:38 PM CDT) Only the most recent of2 resultswithin the time period is included. Color Urine Yellow Colorless, Straw, Light Yellow, Yellow 12/25/2023 1:20 PM CDT [facility] Appearance Urine Slightly Cloudy(A) Clear 12/25/2023 1:20 PM CDT [facility] Glucose Urine Negative Negative mg/dL 12/25/2023 1:20 PM CDT [facility] Bilirubin Urine Negative Negative 1:20 PM CDT [facility] Ketones Urine Negative Negative mg/dL 12/25/2023 1:20 PM CDT [facility] Specific [place] Urine 1.010 1.003 - 1.035 12/25/2023 1:20 PM CDT [facility] Blood Urine Moderate(A) Negative 12/25/2023 1:20 PM CDT [facility] pH Urine 6.0 5.0 - 7.0 12/25/2023 1:20 PM CDT [facility] Protein Albumin Urine 100(A) Negative mg/dL 12/25/2023 1:20 PM CDT [facility] Urobilinogen Urine 0.2 0.2, 1.0 E.U./dL 12/25/2023 1:20 PM CDT [facility] Nitrite Urine Negative Negative 12/25/2023 1:20 PM CDT [facility] Leukocyte Esterase Urine Large(A) Negative 12/25/2023 1:20 PM CDT [facility] Urine MID-STREAM URINE SPECIMEN / Unknown Non-blood Collection / Unknown 12/25/2023 12:38 PM CDT 12/25/2023 1:17 PM CDT Karina Joiner MD LAB - URINE ORDERABL ES [facility] [address] [facility] Lab (no room number, 1st floor of [facility]) [place] [address], [facility] [phone] * (ABNORMAL) Urine Microscopic Exam (12/25/2023 12:38 PM CDT) Only the most recent of3 resultswithin the time period is included. Bacteria Urine Few(A) None Seen /HPF [place] 12/25/2023 1:27 PM CDT [facility] RBC Urine 10-25(A) 0-2 /HPF /HPF [place] 12/25/2023 1:27 PM CDT [facility] WBC Urine 50-100(A) 0-5 /HPF /HPF [place] 12/25/2023 1:27 PM CDT [facility] Squamous Epithelials Urine Few(A) None Seen /LPF [place] 12/25/2023 1:27 PM CDT [facility] Urine MID-STREAM URINE SPECIMEN / Unknown Non-blood Collection / Unknown 12/25/2023 12:38 PM CDT 12/25/2023 1:17 PM CDT Karina Joiner MD LAB - URINE ORDERABL ES LABORATORY [facility] [address] [facility] (no room number, 1st floor [facility]) [place] [address], [facility] [phone] * (ABNORMAL) Urine Culture (12/25/2023 12:38 PM CDT) Only the most recent of3 resultswithin the time period is included. Culture 10,000-50,000 CFU/mL Streptococcus agalactiae (Group B Streptococcus)(A ) CRISTOBAL 12/26/2023 11:11 AM CDT [facility] Comment:This organism is annalisa ceptible to ampicillin, penicillin, vancomycin and the cephalosporins. If treatment is required AND your patient is allergic to penicillin, contact the Microbiology Lab within 5 days to request susceptibility testing. Urine MID-STREAM URINE SPECIMEN / Unknown Non-blood Collection / Unknown 12/25/2023 12:38 PM CDT 12/25/2023 1:20 PM CDT Karina Joiner MD LAB - MICRO GENERAL ORDERABLES [facility]. [facility] Lab [address] [facility] [place] [address] * (ABNORMAL) UA with Microscopic (2023 2:00 PM CDT) Color Urine Yellow Colorless, Straw, Light Yellow, Yellow 2023 2:18 PM CDT [facility] Appearance Urine Clear Clear 12/05/19 24 2:18 PM CDT [facility] Glucose Urine Negative Negative mg/dL 2023 2:18 PM CDT [facility] Bilirubin Urine Negative Negative 2:18 PM CDT [facility] Ketones Urine Negative Negative mg/dL 2023 2:18 PM CDT [facility] Specific [place] Urine 1.015 1.003 - 1.035 2023 2:18 PM CDT [facility] Blood Urine Moderate(A) Negative 2023 2:18 PM CDT [facility] pH Urine 7.0 5.0 - 7.0 2023 2:18 PM CDT [facility] Protein Albumin Urine 100(A) Negative mg/dL 2023 2:18 PM CDT [facility] Urobilinogen Urine 0.2 0.2, 1.0 E.U./dL 2023 2:18 PM CDT [facility] Nitrite Urine Negative Negative 2023 2:18 PM CDT [facility] Leukocyte Esterase Urine Large(A) Negative 2023 2:18 PM CDT [facility] Urine MID-STREAM URINE SPECIMEN / Unknown Non-blood Collection / Unknown 2023 2:00 PM CDT 2023 2:00 PM CDT Grant Gray MD LAB - URINE ORDERABL ES [facility] LAB[facility]AT[facility] [address], [address] [place] [address], [facility] [phone] from Last 3 Months Care Teams Emergency Medicine Specialist Relationship Specialty Start Date End Date [facility]- [address] [place] [address] PCP - General 02/10/24 Tierra Musa MD [address] [facility] [place] [address] [id number] Physician fur clipper 11/25/23 France Martinez MD [facility] [address] [place] [address] fur clipper 11/25/23 Bridgett Garcia PA-C [address] [place] [address] Physician Entry Level Java Developer Anesthesiology 12/05/23 Grant Gray MD [address] [place] [address] fur clipper 12/05/23 Grant Gray MD [address] [place], [place] [address] Assigned OBGYN Provider 12/12/23
--- OUTSIDE RECORDS SUMMARY | 2024-02-28 15:25 | XMS_ITS | Encounter Summary ---
Author Organization [place] Address [address] [facility] [place] [address] Care Team Providers Care Lathe Puller Name Role Phone Tierra Musa MD Unavailable [phone] France Martinez MD Unavailable [phone] Bridgett Garcia PA-C Unavailable [phone] Grant Gray MD Unavailable [phone] Grant Gray MD Unavailable [phone] [facility]- Primary Care Provider Encounter Details Date Type Department Care Team (Late st Contact Info) Description 02/10/2024 Orders Only [facility] [place] [address], [address] [place] [address] Grant Gray MD [address] [place] [address] Vaginal atrophy Social History Tobacco Use Types Packs/Day Years Used Date Smoking Tobacco: Never Smokeless Tobacco: Never Alcohol Use Standard Drinks/Week Comments Not Currently 0 (1 standard drink = 0.6 oz pur e alcohol) PHQ-2 Answer Date Recorded PHQ-2 Score 0 01/13/2024 Adolescent Education Answer Date Record ed Getting School Help Needed Not on file 04/27 Sex and Gender Information Value Date Recorded Sex Assigned at Not on file Gender Identity Not on file Sexual Orientation Not on file documented as of this encounter Plan of Treatment Upcoming Encounters Date Type Department Care Team (Late st Contact Info) Description 03/25/2024 10:00 AM CDT Office Visit [facility] [place] [address] [facility] [address] [place] [address] Grant Gray MD [address] [place], [place] [address] documented as of this encounter Visit Diagnoses Diagnosis Vaginal atrophy Postmenopausal atrophic vaginitis documented in this encounter Care Teams Lathe Puller Relationship Specialty Start Date End Date [facility]- [address] [place] [address] PCP - General 02/10/24 Tierra Musa MD [address] [facility] [address] [place] [address] Physician wood router 11/25/23 France Martinez MD [facility] [address] [place] [address] wood router 11/25/23 Bridgett Garcia PA-C [address] [place], [place] [address] Physician Tar Pot Worker Anesthesiology 12/05/23 Grant Gray MD [address] [place], [place] [address] wood router 12/05/23 Grant Gray MD [address] [place] [address] Assigned OBGYN Provider 12/12/23 documented as of this encounter
--- OUTSIDE RECORDS SUMMARY | 2024-02-28 15:25 | XMS_ITS | Referral Summary ---
Author Organization [employer] Address [address] [facility] [place] [address] Care Team Providers Care Director Pharmacology Name Role Phone Tierra Musa MD Unavailable [phone] France Martinez MD Unavailable Bridgett Garcia PA-C Unavailable [phone] Grant Gray MD Unavailable [phone] Grant Gray MD Unavailable [phone] [facility]- Primary Care Provider Encounters Date Type Department Care Team Description 02/10/2024 Orders Only [facility] [place] [address], [address] [place] [address] Grant Gray MD Vaginal atrophy 02/10/2024 Travel 02/10/2024 7:30 AM CDT - 02/10/2024 11:30 AM CDT [facility] [address] [place] [address] Grant Gray MD ROBOT-ASSISTED SACROCOLPOPEXY WITH CYSTOSCOPY 02/10/2024 7:37 AM CDT [facility]est[facility] [address] [place] [phone] Rekha Patel Sara E, PA-C 02/10/2024 5:22 AM CDT - 02/10/2024 6:07 PM CDT Hospital Encounter [facility] PreOP/Phase II [address] [place] [address] Grant Gray MD S/P laparoscopic surgery (Primary Dx) Discharge Disposition: Home or Self Care 01/22/2024 MyC Medical Advice [address], [address] [place] [address] Grant Gray MD 01/20/[address], [address] [place] [address] Grant Gray MD Appointment 01/13/2024 Results Only [facility] Preoperative Assessment [address] [place] [address] Bridgett Garcia PA-C 01/13/2024 Travel 01/13/2024 12:30 PM CDT Lab [facility] Lab [address] 1st [place] [address] Preop examination; Vaginal prolapse 01/13/2024 PRE VISIT [facility] Preoperative Assessment [address] [place] [address] Bridgett Garcia PA-C 01/13/2024 11:15 AM CDT Office Visit [facility] Preoperative Assessment [address] [place] [address] Bridgett Garcia PA-C Preop examination (Primary Dx); Vaginal prolapse 01/01/2024 Orders Only [facility] [place] [address], [address] [facility] [place] [phone] Grant Gray MD Recurrent UTI (Primary Dx) 01/01/2024 MyC Medical Advice [facility] [address] [facility], [address] [place] [address] Grant Gray MD 12/25/2023 Travel 12/25/2023 12:40 PM CDT Office Visit [facility] [address] [place] [address] Karina Joiner MD Dysuria (Primary Dx); Acute cystitis without hematuria 12/11/2023 Orders Only [facility] Line [facility] [place] [address] Grant Gray MD Frequent UTI (Primary Dx) 12/08/2023 Travel 12/08/2023 10:20 AM CDT Office Visit [facility] [address] [place] [address] Karina Joiner MD Acute cystitis without hematuria (Primary Dx); Dysuria 12/06/2023 MyC Medical Advice [facility] [address] [place] [address], [address] [place] [address] Grant Gray MD 2023 2:00 PM CDT Lab [facility] [address] [facility] [address] [place] [address] Frequent UTI 2023 Orders Only [place] [address] [place] [address] Grant Gray MD Frequent UTI (Primary Dx) 2023 MyC Medical Advice [facility] [address] [facility], [address] [place] [address] Grant Gray MD 2023 MyC Medical Advice [facility] [address] [facility] [address] [facility] [address] [place] [address] Merissa Yeboah CMA 12/04/2023 Telephone [facility] [place] [address]rd [address] [facility] [address] [place] [address] Merissa Yeboah CMA 12/04/2023 Travel 12/04/2023 9:30 AM CDT Office Visit [facility] [place] [address] [facility], [address] [place] [address] Grant Gray MD Vaginal atrophy (Primary Dx); Retention of urine, unspecified; Prolapse of vaginal vault after hysterectomy; Frequent UTI; Benign essential hypertension; Atrial fibrillation, unspecified type (H); Ischemic colitis (H24) from Last 3 Months Allergies Active Allergy Reactions Criticality Noted Date [...] unspecified type 12/04/2023 Ischemic colitis (H24) 12/04/2023 Social History Tobacco Use Types Packs/Day Years [...] Description 03/25/2024 10:00 AM CDT Office Visit [facility] [address], [address] [place] [address] Grant Gray MD [address] [place] [address] Medical Devices Implanted Type Area Procurement Coordinator Device Identifier Shelf Expiration Date Model / Serial / Lot Mesh Sling Ups[employer] Y-Mesh [id number] - [id number] Implanted:Qty : 1 on 02/10/2024 by Grant Gray MD at [facility] Mesh N/A: [employer] [place] [id number] 10/19/2026 [id number] / / [id number] Procedures Procedure Name Priority Date/Time Associated Diagnosis [...] 02/10/2024 5:36 PM CDT LABORATORY Comment:eGFR calculated usin 2020 CKD-EPI equation. Calcium 9.0 8.8 - 10.4 [...] LAB - BLOOD ORDERABL ES LABORATORY [facility] Lab [address] 1[address] floor, Room [address] [place] [address], [facility] [phone] * Peripheral/Paravertebral Block (02/10/2024 1:44 PM CDT) [...] nor qualified to perform this procedure. FOR [facility] ([facility]) ONLY: ?? Pain Team Contact information: please page the Pain Team Via Paperlinksom. Search Pain. During daytime hours, please page the attending first. At night please page the resident first. Rekha Patel NM ANESTHESIA * ANE AIRWAY ETT PERFORMABLE (02/10/2024 7:46 AM CDT) Narrative Danni Vargas APRN BILLBOARD ERECTOR HELPER - 02/10/2024 7:46 AM CDT Danni Vargas APRN BILLBOARD ERECTOR HELPER ? 02/10/2024 ??8:19 AM Airway ? Patient location during procedure: OR ? Procedure Start/Stop Times: 02/10/2024 7:46 AM Staff - ? BILLBOARD ERECTOR HELPER: Danni Vargas APRN BILLBOARD ERECTOR HELPER ? Performed By: BILLBOARD ERECTOR HELPER Consent for Airway ? Urgency: elective Indications [...] Administration Time: 02/10/2024 7:46 AM Rekha Patel NM ANESTHESIA * CBC with platelets (01/13/2024 12:07 PM CDT) Pathologist [facility] WBC Count 7.0 4.0 - 11.0 10e3/uL 01/13/2024 12:14 PM CDT [facility] RBC Count 4.60 3.80 - 5.20 10e6/uL 01/13/2024 12:14 PM CDT [facility] Hemoglobin 13.8 11.7 - 15.7 g/dL 01/13/2024 12:14 PM CDT [facility] Hematocrit 40.6 35.0 - 47.0 % 01/13/2024 12:14 PM CDT [facility] MCV 88 78 - 100 fL 01/13/2024 12:14 PM CDT [facility] MCH 30.0 26.5 - 33.0 pg 01/13/2024 12:14 PM CDT [facility] MCHC 34.0 31.5 - 36.5 g/dL 01/13/2024 12:14 PM CDT [facility] RDW 13.3 10.0 - 15.0 % 01/13/2024 12:14 PM CDT [facility] Platelet Count 300 150 - 450 10e3/uL 01/13/2024 12:14 PM CDT [facility] Blood STRUCTURE OF RIGHT UPPER LIMB / Unknown Venipuncture / Unknown 01/13/2024 12:07 PM CDT 01/13/2024 12:07 PM CDT Bridgett Garcia PA-C LAB - BLOOD ORDERABL ES [facility] [place] [address] [facility] 1st [place] [address] * EKG 12-lead complete w/read - Clinics (01/13/2024 11:09 AM CDT) Systolic Blood Pressure mmHg MUSE Diastolic Blood Pressure mmHg MUSE Ventricular Rate 61 BPM MUSE Atrial Rate 61 BPM MUSE NM Interval 168 ms MUSE QRS Duration 96 ms MUSE QT 458 ms MUSE QTc 461 ms MUSE P [place] 16 degrees MUSE R AXIS -10 degrees MUSE T [place] 37 degrees MUSE Interpretation ECG Sinus rhythm Inferior infarct (cited on or before 13-JAN-2024) Abnormal ECG When compared with ECG of 13-JAN-2024 11:09, (unconfirmed) No significant change was found Confirmed by MD ANNABELLE, MICHAELA ([id number]) on 01/14/2024 4:35:05 PM MUSE 01/13/2024 11:0 9 AM CDT 01/14/2024 4:35 PM CDT Bridgett Garcia PA-Josh ECG ORDERABLES MUSE * (ABNORMAL) UA Macroscopic [...] 12/25/2023 1:20 PM CDT LV LABORATORY Specific [place] Urine 1.010 1.003 - 1.035 12/25/2023 1:20 [...] Urine Large(A) Negative 12/25/2023 1:20 PM CDT LABORATORY Urine MID-STREAM URINE SPECIMEN / Unknown Non-blood Collection / Unknown 12/25/2023 12:38 PM CDT 12/25/2023 1:17 PM CDT Karina Joiner MD LAB - URINE ORDERABL ES Performing Organization Address [facility]/ZIP Co de Phone Number LABORATORY [facility] [address] [facility] Lab (no room number, 1st floor of [facility]) [place] [address], [facility] [phone] * (ABNORMAL) Urine Microscopic Exam (12/25/2023 12:38 PM CDT) Only the most recent of3 resultswithin the time period is included. Bacteria Urine Few(A) None Seen /HPF [place]RI[place] 12/25/2023 1:27 PM CDT LABORATORY RBC Urine 10-25(A) 0-2 /HPF /HPF CRISTOBAL 12/25/2023 1:27 PM CDT LABORATORY WBC Urine 50-100(A) 0-5 /HPF /HPF CRISTOBAL 12/25/2023 1:27 PM CDT LABORATORY Squamous Epithelials Urine Few(A) None Seen /LPF CRISTOBAL 12/25/2023 1:27 PM CDT LABORATORY Urine MID-STREAM URINE SPECIMEN / Unknown Non-blood Collection / Unknown 12/25/2023 12:38 PM CDT 12/25/2023 1:17 PM CDT Karina Joiner MD LAB - URINE ORDERABL ES Performing Organization Address [facility]/ZIP Co de Phone Number LABORATORY [facility] [address] [facility] Lab (no room number, 1st floor of [facility]) [place] [address], [facility] [phone] * (ABNORMAL) Urine Culture (12/25/2023 12:38 PM [...] - MICRO GENERAL ORDERABLES UU IDD LABORATORY [facility] Inf. Diseases Diag. Lab [address] [facility], [address] [place] [id number] * (ABNORMAL) UA with Microscopic (2023 2:00 PM CDT) Color Urine Yellow Colorless, Straw, Light Yellow, Yellow 2023 2:18 PM CDT RI LABORATORY Appearance Urine Clear Clear 12/05/19 24 2:18 PM CDT RI LABORATORY Glucose Urine Negative Negative mg/dL 2023 2:18 PM CDT RI LABORATORY Bilirubin Urine Negative Negative 4 2:18 PM CDT RI LABORATORY Ketones Urine Negative Negative mg/dL 2023 2:18 PM CDT RI LABORATORY Specific [place] Urine 1.015 1.003 - 1.035 2023 2:18 [...] LAB - URINE ORDERABL ES RI LABORATORY [facility] [address], [address] [place] [address], [facility] [phone] from Last 3 Months Care Teams Director Pharmacology Relationship Specialty Start Date End Date [facility]- [address] [place] [address] PCP - General 02/10/24 Tierra Musa MD [address] [address] Physician auto phone installer 11/25/23 France Martinez MD [facility] [address] [place] [address] auto phone installer 11/25/23 Bridgett Garcia, PABessyC [address] [place] [address] Physician Regulatory Affairs Associate Anesthesiology 12/05/23 Grant Gray MD [address] [place] [address] MD auto phone installer 12/05/23 Grant Gray MD [address] [place] [address] Assigned OBGYN Provider 12/12/23
--- OUTSIDE RECORDS SUMMARY | 2024-02-28 15:25 | XMS_ITS | Encounter Summary ---
Author Organization [place] Address [address] [facility] [place] [address] Care Team Providers Care Riding Instructor Name Role Phone Tierra Musa MD Unavailable [phone] France Martinez MD Unavailable [phone] Bridgett Garcia PA-C Unavailable [phone] Grant Gray MD Unavailable [phone] Grant Gray MD Unavailable [phone] [facility]- Primary Care Provider Encounter Details Date Type Department Care Team (Latest Contact Info) Description 02/10/2024 Travel Social History Tobacco Use Types Packs/Day Years [...] Upcoming Encounters Date Type Department Care Team ( Contact Info) Description 03/25/2024 10:00 AM CDT Office Visit [facility] for [address], [address] [place] [address] Grant Gray MD [address] [place] [address] documented as of this encounter Visit Diagnoses Not on filedocumented in this encounter Care Teams Riding Instructor Relationship Specialty Start Date End Date [facility]- [address] [place] [address] PCP - General 02/10/24 Tierra Musa MD [address] [place] [address] Physician landing scaler 11/25/23 France Martinez MD [facility] [address] [place] [address] landing scaler 11/25/23 Bridgett Garcia PA-C [address] [place] [address] Physician Puffer Tender Anesthesiology 12/05/23 Grant Gray MD [address] [place] [address] landing scaler 12/05/23 Grant Gray MD [address] [place] [address] Assigned OBGYN Provider 12/12/23 documented as of this encounter
--- OUTSIDE RECORDS SUMMARY | 2024-02-28 15:26 | XMS_ITS | Encounter Summary ---
Author Organization [place] Address [address] 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 PeriOP Services [address] [place] [address] Grant Gray MD [address] [place] [address] ROBOT-ASSISTED SACROCOLPOPEXY WITH CYSTOSCOPY Surgery Details Date/Time Status Location OR Service Patient Class Case Class Case Type Trauma Case? 02/10/24 7:30 AM Posted SH OR OR M 43 Gynecology Same Day Surgery Elective Panel 1 Procedure LRB Anes Op Region Wound Class Comments ROBOT-ASSISTED SACROCOLPOPEXY WITH CYSTOSCOPY N/A General with Block Abdomen II-Clean Contaminated Surgeon Surgeon Role Service Panel Errol Gilbert MD Assisting Gynecology 1 Grant Gray MD Primary Gynecology 1 Special Needs *htn-asa documented in this encounter Social History Tobacco Use Types Packs/Day Years [...] on file documented as of this encounter Last Filed Vital Signs Vital Sign Reading Time Taken Comments Blood Pressure 174/56 02/10/2024 5:50 AM CDT Pulse - - Temperature 36.7 ??C (98 ??F) 02/10/2024 5:50 AM CDT Respiratory Rate 16 02/10/2024 5:50 AM CDT Oxygen Saturation 97% 02/10/2024 5:50 AM CDT Inhaled Oxygen Concentration - - Weight 70.8 kg (156 lb 1.6 oz) 02/10/2024 5:50 A M CDT Height 149.9 cm (4' 11) 02/10/2024 5:50 AM CDT Body Mass Index 31.53 02/10/2024 5:50 AM CDT documented in this encounter Discharge Instructions * Discharge Instructions* Aston Ramesh, KOBI - 02/10/2024 6:29 AM CDT Today you were given 975 mg of Tylenol at 630 am. The recommended daily maximum dose is 4000 mg. While you were at the hospital today you were given a medication called Pyridium. This is used to treat pain, burning, increased urination, and increased urge to urinate. Pyridium will most likely darken the color of your urine to an orange or red color. Darkened urine may also cause stains to your underwear, which may or may not be removed by laundering. Same Day Surgery Discharge Instructions for Sedation and General Anesthesia It's not unusual to feel dizzy, light-headed or faint for up to 24 hours after surgery or while taking pain medication. If you have these symptoms: sit for a few minutes before standing and have someone assist you when you get up to walk or use the bathroom. You should rest and relax for the next 24 hours. We recommend you make arrangements to have an adult stay with you for at least 24 hours after your discharge. Avoid hazardous and strenuous activity. DO NOT DRIVE any vehicle or operate mechanical equipment for 24 hours following the end of your surgery. Even though you may feel normal, your reactions may be affected by the medication you have received. Do not drink alcoholic beverages for 24 hours following surgery. Slowly progress to your regular diet as you feel able. It's not unusual to feel nauseated and/or vomit after receiving anesthesia. If you develop these symptoms, drink clear liquids (apple juice, jaren osmin, broth, 7-up, etc. ) until you feel better. If your nausea and vomiting persists for 24 hours, please notify your surgeon. All narcotic pain medications, along with inactivity and anesthesia, can cause constipation. Drinking plenty of liquids and increasing fiber intake will help. For any questions of a medical nature, call your surgeon. Do not make important decisions for 24 hours. If you had general anesthesia, you may have a sore throat for a couple of days related to the breathing tube used during surgery. You may use Cepacol lozenges to help with this discomfort. If it worsens or if you develop a fever, contact your surgeon. If you feel your pain is not well managed with the pain medications prescribed by your surgeon, please contact your surgeon's office to let them know so they can address your concerns. If you have questions or concerns about your procedure, call Dr. Gray at [phone] documented in this encounter Medications at Time of Discharge Medication Sig Dispensed Refills Start Date End Date acetaminophen (TYLENOL) 162.5 mg half-tab Take by mouth every 4 hours as needed 08/14/2023 acetaminophen (TYLENOL) 325 MG tabletIndications:S/P laparoscopic surgery Take 3 tablets (975 mg) by mouth every 6 hours as needed for mild pain 50 tablet 02/10/2024 aspirin 81 MG EC tablet Take 81 mg by mouth three times a week M, W, Fr atorvastatin (LIPITOR) 10 MG tablet Take 10 mg by mouth every evening 08/13/2023 Calcium Carb-Cholecalciferol (CALCIUM CARBONATE-VITAMIN D3 PO) Take 1 tablet by mouth 02/02/2022 diltiazem ER (TIAZAC) 360 MG 24 hr ER beaded capsule Take 360 mg by mouth every evening estradiol (ESTRACE) 0.1 MG/GM vaginal creamIndications:Vagi nal atrophy Place 1 g vaginally three times a week 42.5 g 3 02/10/2024 Flaxseed, Linseed, (FLAXSEED OIL) 1000 MG CAPS Take by mouth daily 07/09/2023 furosemide (LASIX) 40 MG tablet Take 40 mg by mouth every morning ibuprofen (ADVIL/MOTRIN) 400 MG tabletIndications:S/P laparoscopic surgery Take 1 tablet (400 mg) by mouth every 6 hours as needed for other (mild and/or inflammatory pain) 60 tablet 02/10/2024 levothyroxine (SYNTHROID/LEVOTHROID ) 88 MCG tablet Take 88 mcg by mouth every morning losartan (COZAAR) 100 MG tablet Take 100 mg by mouth every morning MAGNESIUM PO Take 250 mg by mouth daily metoprolol succinate ER (TOPROL XL) 25 MG 24 hr tablet Take 25 mg by mouth every morning multivitamin (CENTRUM SILVER) tablet Take 1 tablet by mouth daily nitroFURantoin macrocrystal-monohydr ate (MACROBID) 100 MG capsuleIndications:Re current UTI Take 1 capsule (100 mg) by mouth daily 90 capsule 1 01/01/2024 omeprazole (PRILOSEC) [address] capsule Take 40 mg by mouth every morning Phenazopyridine HCl (AZO TABS PO) 07/09/2023 senna-docusate (SENOKOT-S/PERICOLACE ) 8.6-50 MG tabletIndications:S/P laparoscopic surgery Take 1-2 tablets by mouth 2 times daily as needed for constipation (While on oral opioids.) 30 tablet 02/10/2024 oxyCODONE (ROXICODONE) 5 MG tabletIndications:S/P laparoscopic surgery Take 1 tablet (5 mg) by mouth every 6 hours as needed for pain 6 tablet 02/10/2024 02/13/2024 documented as of this encounter Progress Notes * Kecia Malloy RN - 02/10/2024 6:03 PM CDT Pt able to void small amt. No pain or discomfort per pt. Pt and comfortable with discharge to home. Both aware that if pt has distention, pain, unable to void once home that they should return to the ER. Both okay with this. Pt discharged to home with . documented in this encounter Nursing Notes * Sandie Morgan RN - 02/10/2024 3:54 PM CDT Pt unable to void after many attempts. Was bladder scanned for 47cc. Pt not uncomfortable or in pain. Spoke with Dr. Gray who ordered lab and then pt can discharge with out voiding. documented in this encounter Miscellaneous Notes * Op Note - Grant Gray MD - 02/10/2024 8:09 AM CDT DATE OF PROCEDURE: February 10, 2024 PREOPERATIVE DIAGNOSIS: 1. Cystocele 2. Prolapse of vaginal vault 3. Rectocele 4. Recurrent UTIs POSTOPERATIVE DIAGNOSIS: 1. Cystocele 2. Prolapse of vaginal vault 3. Rectocele 4. Recurrent UTIs PROCEDURE: 1. Robotic assisted Sacrocolpopexy 2. Cystoscopy SURGEON: Marina RESIDENT(S): - ANESTHESIA: General endotracheal EBL: 50cc FLUIDS: 1500cc URINE OUTPUT: 350cc CONDITION: Stable COMPLICATIONS: none apparent SPECIMEN: None IMPLANTS: [employer] Upsylon Y-mesh MEDICATIONS: Ancef 2g IV was given prior to the start of the procedure DRAINS, PACKS: Cristina catheter INDICATIONS: The patient is a 78 year old female with cystocele, vaginal vault prolapse and a rectocele who requests surgical intervention. Prior to the procedure, she was counseled as to the treatment options and their risks/benefits. She was desirous of surgical intervention consisting of the proc edures mentioned above. She was counseled on the risks/benefits/alternatives/indications of the procedure and written, informed consent was obtained prior to proceeding to the OR. FINDINGS: Scarring from the sigmoid colon to the vagina OPERATIVE PROCEDURE: After obtaining informed consent, the patient was brought to the operating room and placed in the modified lithotomy position. General endotracheal anesthesia was gently induced without difficulty. The patient received appropriate preoperative antibiotic prophylaxis, as well as mechanical and chemical DVT prophylaxis. Bilateral lower extremity pneumatic compression devices were applied, and all pressure points were cushioned. The abdomen and perineum were prepped and draped in the standard sterile fashion. A timeout was performed. A Cristina catheter was inserted. An umbilical incision was made and a Veress needle was placed. Attempted insufflation, but were unable to achieve adequate pneumop eritoneum. The decision was made to use a Sun technique. A 1cm incision was made and the abdomenwas entered under direct visualization. Pneumoperitoneum was created to 15 mmHg without difficulty.Additional trocars were placed at the left abdomen (8 mm robotic x2), and at the right abdomen (8 mm robotic and an 8 mm AirSeal trocar). These were all placed under direct vision without difficulty.The patient was then positioned and the small bowel and omentum were retracted to the left upper abdomen. The ureters were easily identified transperitoneally bilaterally. The sacral promontory was dissected down to the level of the periosteum. The da José Antonio Xi robot was docked and all robotic instru ments were placed under direct vision. A vaginal manipulator was placed on the [facility] arch and was used to manipulate the vagina. The bladder was sharply dissected away from the underlying vagina. There was dense scarring and we were only able to free approximately 4-5cm of anterior vaginal wall. The rectum was also dissected free from the vagina, again encountering dense scarring. An EEA sizer was placed in the rectum to delineate the anatomy. Upsylon Y-mesh were sutured to the upper half to the anterior and posterior vaginal gregorio using 4 sutures of CV-2 gortex on the anterior wall and an additional 6 sutures were placed on the posterior vaginal wall. The presacral surface was cleaned off to allow visualization of theanterior longitudinal ligament and presacral vessels. The mesh was then appropriately tensioned and2 sutures of 0 Ethibond were used to anchor the mesh strap to the anterior longitudinal ligament ofthe sacrum between S1 and S2. Cystoscopy was then performed using the 30 degree cystoscope and sterile saline as a distending media. The bladder was thoroughly examined and noted to be free of injury. The patient had been given pyridium prior to going to the OR. Brisk efflux of orange stained urine was noted from the ureteral orifices bilaterally. The fascia of the umbilical incision was closed using 0 vicryl. The 8-mm fascial defects were left unclosed. The skin incisions were closed with 4-0 Monocryl. The patient was awakened and extubated. A Tap block was performed by anesthesia. documented in this encounter Plan of Treatment Upcoming Encounters Date Type Department Care Team (Late st Contact Info) Description 03/25/2024 10:00 AM CDT Office Visit [facility] [address], [address] [place] [address] Grant Gray MD [address] [place] [address] documented as of this encounter Procedures Procedure Name Priority Date/Time Associated Diagnosis Comments BASIC METABOLIC PANEL STAT 02/10/2024 4:58 PM CDT SACROCOLPOPEXY, ROBOT-ASSISTED, WITH CYSTOSCOPY 02/10/2024 7:37 AM CDT Prolapse of vaginal vault after hysterectomy Special Needs *htn-asa documented in this encounter Results * (ABNORMAL) Basic metabolic panel (02/10/2024 4:58 PM CDT) Sodium 134(L) 135 - 145 mmol/L 02/10/2024 [...] MD LAB - BLOOD ORDERABL ES LABORATORY [facility] [address] 1[address] floor, [address] [place] [address], [facility] [phone] documented in this encounter Visit Diagnoses Diagnosis S/P laparoscopic surgery- Primary Other postprocedural status Prolapse of vaginal vault after hysterectomy documented in this encounter Administered Medications Inactive Administered Medications - up to 3 most recent administrations Medication Order MAR Action Action Date Dose Rate Site acetaminophen (TYLENOL) tablet 650 mg 650 mg, Oral, ONCE, On Sat02/10/24 at 1400, For 1 dose, Maximum acetaminophen dose from all sources = 75 mg/kg/day not to exceed 4 grams/day. $Given 02/10/2024 2:03 PM CDT 650 mg acetaminophen (TYLENOL) tablet 975 mg 975 mg, Oral, ONCE, On Sat02/10/24 at 0600, For 1 dose, Give within 60 min of procedure. Hold if patient has taken acetaminophen within 4 hours. Maximum acetaminophen dose from all sources = 75 mg/kg/day not to exceed 4 grams/day., Pre-procedure $Given 02/10/2024 6:06 AM CDT 975 mg fentaNYL (PF) (SUBLIMAZE) injection 25 mcg 25 mcg, Intravenous, EVERY 5 MIN PRN, moderate pain, Give fentaNYL (SUBLIMAZE) first if HYDROmorphone (DILAUDID) also ordered., Starting on Sat02/10/24 at 1152, Administer fentaNYL (SUBLIMAZE) for acute pain control. Move to HYDROmorphone (DILAUDID): -IF patient has received up to 200 mcg of fentaNYL (SUBLIMAZE) OR - IF patient has received 2 doses of fentaNYL (SUBLIMAZE) AND continues to have pain score greater than or equal to six (6) or is unable to participate in post op recovery due to pain. Wait 5 minutes AFTER last fentaNYL (SUBLIMAZE) dose before administering HYDROmorphone (DILADUDID). Postop Anesthesia Phase I only. Notify Provider to assess for uncontrolled pain or analgesic side effects. DO NOT revert back to fentanyl (SUBLIMAZE) after moving to HYDROmorphone (DILAUDID)., PACU $Given 02/10/2024 12:53 PM CDT 25 mcg $Given 02/10/2024 12:46 PM CDT 25 mcg lactated ringers infusion at 10 mL/hr, Intravenous, CONTINUOUS, IF patient NOT on dialysis., Pre-procedure, Starting on Sat02/10/24 at 0630, Until Sat02/10/24 at 1140 $New Bag 02/10/2024 8:55 AM CDT Restarted 02/10/2024 7:37 AM CDT $New Bag 02/10/2024 6:25 AM CDT 10 mL/hr oxyCODONE (ROXICODONE) tablet 5 mg 5 mg, Oral, ONCE, On Sat02/10/24 at 1400, For 1 dose $Given 02/10/2024 2:03 PM CDT 5 mg phenazopyridine (PYRIDIUM) tablet 200 mg 200 mg, Oral, ONCE, On Sat02/10/24 at 0600, For 1 dose, Give in preop holding room with small sip of water., Pre-procedure $Given 02/10/2024 6:07 AM CDT 200 mg documented in this encounter Active and Recently Administered Medications Times are shown in CDT. Scheduled Medication Order 02/08/2024 02/09/2024 02/10/2024 acetaminophen (TYLENOL) tablet 650 mg (COMPLETED) 650 mg, Oral, ONCE, On Sat02/10/24 at 1400, For 1 dose, Maximum acetaminophen dose from all sources = 75 mg/kg/day not to exceed 4 grams/day. 1403 ($Given - Provi shad: Sandie Morgan RN) acetaminophen (TYLENOL) tablet 975 mg (COMPLETED) 975 mg, Oral, ONCE, On Sat02/10/24 at 0600, For 1 dose, Give within 60 min of procedure. Hold if patient has taken acetaminophen within 4 hours. Maximum acetaminophen dose from all sources = 75 mg/kg/day not to exceed 4 grams/day., Pre-procedure 0606 ($Given - Provi shad: Disha Moya RN) acetaminophen (TYLENOL) tablet 975 mg 975 mg, Oral, ONCE, On Sat02/10/24 at 1800, For 1 dose, Administer 6 hours after pre-op dose, if given. Maximum acetaminophen dose from all sources = 75 mg/kg/day not to exceed 4 grams/day. 1800 (Canceled Entry - Provider: Orders Generic Provider - Comment: Automatically canceled at discontinue of medication order) ceFAZolin Sodium (ANCEF) injection 2 g (COMPLETED) Routine, 2 g, Intravenous, PRE-OP/PRE-PROCEDURE, Starting on Sat02/10/24 at 0537, For 1 dose, Give first dose within 1 hour PRIOR to incision. If patient weight is greater than or equal to 120 kg increase dose to 3 g., Indications: Perioperative Pharmacoprophylaxis, Pre-procedure 0747 ($Given - Provi shad: Danni Vargas APRN CRNA) ibuprofen (ADVIL/MOTRIN) tablet 600 mg 600 mg, Oral, ONCE, On Sat02/10/24 at 1800, For 1 dose, Administer when patient tolerating oral intake AND 6 hours after last ketorolac (TORADOL) dose, if given. Give with food. 1800 (Canceled Entry - Provider: Orders Generic Provider - Comment: Automatically canceled at discontinue of medication order) oxyCODONE (ROXICODONE) tablet 5 mg (COMPLETED) 5 mg, Oral, ONCE, On Sat02/10/24 at 1400, For 1 dose 1403 ($Given - Provi shad: Sandie Morgan RN) phenazopyridine (PYRIDIUM) tablet 200 mg (COMPLETED) 200 mg, Oral, ONCE, On Sat02/10/24 at 0600, For 1 dose, Give in preop holding room with small sip of water., Pre-procedure 0607 ($Given - Provi shad: Disha Moya RN) Continuous Medication Order 02/08/2024 02/09/2024 02/10/2024 lactated ringers infusion (CANCELED) at 10 mL/hr, Intravenous, CONTINUOUS, IF patient NOT on dialysis., Pre-procedure, Starting on Sat02/10/24 at 0630, Until Sat02/10/24 at 1140 0625 ($New Bag - Pro vider: Disha Moya RN)0736 (Paused - Provider: Danni Vargas APRN CRNA - Comment: Switch to gravity)0737 (Restarted - Provider: Danni Vargas APRN CRNA)0855 ($New Bag - Provider: Danni Vargas APRN CRNA)1050 (Anesthesia Volume Adjustment - Provider: Danni Vargas APRN CRNA) PRN Medication Order 02/08/2024 02/09/2024 02/10/2024 fentaNYL (PF) (SUBLIMAZE) injection 25 mcg (CANCELED) 25 mcg, Intravenous, EVERY 5 MIN PRN, moderate pain, Give fentaNYL (SUBLIMAZE) first if HYDROmorphone (DILAUDID) also ordered., Starting on Sat02/10/24 at 1152, Administer fentaNYL (SUBLIMAZE) for acute pain control. Move to HYDROmorphone (DILAUDID): -IF patient has received up to 200 mcg of fentaNYL (SUBLIMAZE) OR - IF patient has received 2 doses of fentaNYL (SUBLIMAZE) AND continues to have pain score greater than or equal to six (6) or is unable to participate in post op recovery due to pain. Wait 5 minutes AFTER last fentaNYL (SUBLIMAZE) dose before administering HYDROmorphone (DILADUDID). Postop Anesthesia Phase I only. Notify Provider to assess for uncontrolled pain or analgesic side effects. DO NOT revert back to fentanyl (SUBLIMAZE) after moving to HYDROmorphone (DILAUDID)., PACU 1246 ($Given - Provi shad: Aston Ramesh RN)1253 ($Given - Provider: Aston Ramesh RN) documented in this encounter Care Teams Church History Teacher Relationship Specialty Start Date End Date [facility]- [address] [place] [address] PCP - General 02/10/24 Tierra Musa MD [address] [id number] Physician concert or lecture hall manager 11/25/23 France Martinez MD [facility] [address] [place] [address] concert or lecture hall manager 11/25/23 Bridgett Garcia PA-C [address] [place] [address] [id number] Physician Football Scout Anesthesiology 12/05/23 Grant Gray MD [address] [place], [place] [address] concert or lecture hall manager 12/05/23 Grant Gray MD [address] [place], [place] [address] Assigned OBGYN Provider 12/12/23 documented as of this encounter
--- OUTSIDE RECORDS SUMMARY | 2024-02-28 15:26 | XMS_ITS | Encounter Summary ---
Author Organization [place] Address [address] [facility] [place] [address] Care Team Providers Care Freelance Director Name Role Phone Tierra Musa MD Unavailable [phone] France Martinez MD Unavailable [phone] No Ref-Primary, Physician Primary Care Provider Bridgett Garcia PA-C Unavailable [phone] Grant Gray MD Unavailable [phone] Grant Gray MD Unavailable [phone] Encounter Details Date Type Department Care Team (Late st Contact Info) Description 01/13/2024 Results Only [facility] [place] [address] [facility] 5th [place] [address] Bridgett Garcia PA-C [address] [place] [address] Social History Tobacco Use Types Packs/Day Years [...] Description 03/25/2024 10:00 AM CDT Office Visit [facility] [address] [facility], [address] [place] [address] Grant Gray MD [address] [place], [place] [address] documented as of this encounter Procedures Procedure Name Priority Date/Time Associated Diagnosis Comments EKG 12-LEAD COMPLETE W/READ - CLINICS Routine 01/13/2024 11:09 AM CDT documented in this encounter Results * EKG 12-lead complete w/read - Clinics (01/13/2024 11:09 AM CDT) Systolic Blood Pressure mmHg MUSE Diastolic Blood Pressure mmHg MUSE Ventricular Rate 61 BPM MUSE Atrial Rate 61 BPM MUSE NE Interval 168 ms MUSE QRS Duration 96 ms MUSE QT 458 ms MUSE QTc 461 ms MUSE P [place] 16 degrees MUSE R AXIS -10 degrees MUSE T [place] 37 degrees MUSE Interpretation ECG Sinus rhythm Inferior infarct (cited on or before 13-JAN-2024) Abnormal ECG When compared with ECG of 13-JAN-2024 11:09, (unconfirmed) No significant change was found Confirmed by MD ANNABELLE, MICHAELA ([id number]) on 01/14/2024 4:35:05 PM MUSE 01/13/2024 11:0 9 AM CDT 01/14/2024 4:35 PM CDT Bridgett Garcia PA-C ECG ORDERABLES MUSE documented in this encounter Visit Diagnoses Not on filedocumented in this encounter Care Teams Freelance Director Relationship Specialty Start Date End Date No Ref-Primary, Physician PCP - General 11/25/23 02/09/24 Tierra Musa MD [address] [facility] [facility] [address] [place] [address] Physician welding supervisor 11/25/23 France Martinez MD [address] [address] MD welding supervisor 11/25/23 Bridgett Garcia PA-C [address] [place], [place] [id number] Physician Bowling Teacher Anesthesiology 12/05/23 Grant Gray MD [address] [place], [place] [id number] welding supervisor 12/05/23 Grant Gray MD [address] [place], [place] [address] Assigned OBGYN Provider 12/12/23 documented as of this encounter
--- OUTSIDE RECORDS SUMMARY | 2024-02-28 15:26 | XMS_ITS | Encounter Summary ---
Author Organization [place] Address [address] [facility] [place] [address] Care Team Providers Care Spreader Operator Automatic Name Role Phone Tierra Musa MD Unavailable [phone] France Martinez MD Unavailable [phone] No Ref-Primary, Physician Primary Care Provider Bridgett Garcia PA-C Unavailable [phone] Grant Gray MD Unavailable [phone] Encounter Details Date Type Department Care Team (Late st Contact Info) Description 2023 Orders Only [facility] Services - Womens and Child Service Line [address] [place] [address] Grant Gray MD [address] [place] [address] Frequent UTI (Primary Dx) Social History Tobacco Use Types Packs/Day Years Used Date Smoking Tobacco: Never Assessed Adolescent Education Answer Date Record ed Getting School Help Needed Not on file 04/27 Sex and Gender Information Value Date Recorded Sex Assigned at Not on file Gender Identity Not on file Sexual Orientation Not on file documented as of this encounter Plan of Treatment Upcoming Encounters Date Type Department Care Team (Late st Contact Info) Description 03/25/2024 10:00 AM CDT Office Visit [address], [address] [place] [address] Grant Gray MD [address] [place] [address] documented as of this encounter Results * Urine Culture Aerobic Bacterial - lab collect (2023 2:00 PM CDT) Culture <10,000 CFU/mL Mixture of urogenital akil CRISTOBAL 12/07/2023 9:35 AM CDT [facility] Urine MID-STREAM URINE SPECIMEN / Unknown Non-blood Collection / Unknown 2023 2:00 PM CDT 2023 2:00 PM CDT Grant Gray MD LAB - MICRO GENERAL ORDERABLES [facility] Inf. Diseases Diag. Lab [address] [facility], [address] [place] [address] * (ABNORMAL) UA with Microscopic (2023 2:00 [...] 2023 2:18 PM CDT RI LABORATORY Specific [place] Urine 1.015 1.003 - 1.035 2023 2:18 [...] LAB - URINE ORDERABL ES RI LABORATORY [facility] [address], [address] [place] [address], [facility] [phone] documented in this encounter Visit Diagnoses Diagnosis Frequent UTI- Primary Urinary tract infection, site not specified documented in this encounter Care Teams Spreader Operator Automatic Relationship Specialty Start Date End Date No Ref-Primary, Physician PCP - General 11/25/23 02/09/24 Tierra Musa MD [address] [facility] 100 [place] [address] Physician analyst 11/25/23 France Martinez MD [facility] [address] [place] [address] analyst 11/25/23 Bridgett Garcia PA-C [address] [place] [address] Physician Mine Production Engineer Anesthesiology 12/05/23 Grant Gray MD [address] [place], [place] [address] analyst 12/05/23 documented as of this encounter
--- OUTSIDE RECORDS SUMMARY | 2024-02-28 15:26 | XMS_ITS | Encounter Summary ---
Author Organization [place] Address [address] [facility] [place] [address] Care Team Providers Care Personal Care Home Administrator Name Role Phone Tierra Musa MD Unavailable [phone] France Martinez MD Unavailable [phone] Ref-Primary, Physician Primary Care Provider Bridgett Garcia PA-C Unavailable [phone] Grant Gray MD Unavailable [phone] Grant Gray MD Unavailable [phone] Reason for Visit * Reason Comments Urgent Care UTI Frequency and urgenc y. Pt is having a prolapse surgery on February 09. Encounter Details Date Type Department Care Team (Late st Contact Info) Description 12/25/2023 12:40 PM CDT Office Visit [facility] [place] [address] [place] [address] Karina Joiner MD [address] [facility] [place] [address] Dysuria (Primary Dx); Acute cystitis without hematuria Social History Tobacco Use Types Packs/Day Years Used Date Smoking Tobacco: Never Smokeless Tobacco: Never Tobacco Cessation:Counseling Given: Not Answered Adolescent Education Answer Date Record ed Getting School Help Needed Not on file 04/27 Sex and Gender Information Value Date Recorded Sex Assigned at Not on file Gender Identity Not on file Sexual Orientation Not on file documented as of this encounter Last Filed Vital Signs Vital Sign Reading Time Taken Comments Blood Pressure 174/74 12/25/2023 12:47 PM CDT Pulse 59 12/25/2023 12:47 PM CDT Temperature 36.3 ??C (97.3 ??F) 12/25/2023 12:47 PM C DT Respiratory Rate - - Oxygen Saturation 97% 12/25/2023 12:47 PM CDT Inhaled Oxygen Concentration - - Weight 72.1 kg (159 lb) 12/25/2023 12:47 PM CDT Height - - Body Mass Index 32.11 12/08/2023 10:41 AM CDT documented in this encounter Patient Instructions * Patient Instructions* Karina Joiner MD - 12/25/2023 12:40 PM CDT Start cephalexin 500 mg twice daily for the next 10 days. If the urine culture shows that the bacteria causing this infection are resistant to this medication, we will call you and change the antibiotic. Please contact Dr. Gray to discuss whether or not you should be on a daily antibiotic until surgery given that you're having such frequent infections. documented in this encounter Progress Notes * Karina Joiner MD - 12/25/2023 12:40 PM CDT ICD-10-CM 1. Dysuria R30.0 UA Macroscopic with reflex to Microscopic and Culture Urine Microscopic Exam Urine Culture 2. Acute cystitis without hematuria N30.00 cephALEXin (KEFLEX) 500 MG capsule Recurrent UTIs. 50-100 WBCs on urine micro. No nitrites this time, unlike last UA on 12/07 when culture confirmed E coli infection. PLAN: Patient Instructions Start cephalexin 500 mg twice daily for the next 10 days. If the urine culture shows that the bacteria causing this infection are resistant to this medication, we will call you and change the antibiotic. Please contact Dr. Gray to discuss whether or not you should be on a daily antibiotic until surgery given that you're having such frequent infections. SUBJECTIVE: Antonietta Gilbert is a 78 year old female who presents to today with return of urinary tract infection symptoms, mainly suprapubic pressure. No blood in her urine that she's seen. Symptoms did completely resolve after course of cefdinir that I prescribed two weeks ago and then returned. OBJECTIVE: BP (!) 174/74 Pulse 59 Temp 97.3 ??F (36.3 ??C) (Tympanic) Wt 72.1 kg (159 lb) LMP (LMP Unknown) SpO2 97% BMI 32.11 kg/m?? GEN: well-appearing, in NAD Results for orders placed or performed in visit on 12/25/23 UA Macroscopic with reflex to Microscopic and Culture Status: Abnormal Specimen: Urine, Midstream Result Value Ref Range Color Urine Yellow Colorless, Straw, Light Yellow, Yellow Appearance Urine Slightly Cloudy (A) Clear Glucose Urine Negative Negative mg/dL Bilirubin Urine Negative Negative Ketones Urine Negative Negative mg/dL Specific Kenner Urine 1.010 1.003 - 1.035 Blood Urine Moderate (A) Negative pH Urine 6.0 5.0 - 7.0 Protein Albumin Urine 100 (A) Negative mg/dL Urobilinogen Urine 0.2 0.2, 1.0 E.U./dL Nitrite Urine Negative Negative Leukocyte Esterase Urine Large (A) Negative Urine Microscopic Exam Status: Abnormal Result Value Ref Range Bacteria Urine Few (A) None Seen /HPF RBC Urine 10-25 (A) 0-2 /HPF /HPF WBC Urine 50-100 (A) 0-5 /HPF /HPF Squamous Epithelials Urine Few (A) None Seen /LPF documented in this encounter Plan of Treatment Upcoming Encounters Date Type Department Care Team (Late st Contact Info) Description 03/25/2024 10:00 AM CDT Office Visit [facility] [place] [address] [place] [address], [address] [place] [address] Grant Gray MD [address] [place], [place] [address] documented as of this encounter Procedures Procedure Name Priority Date/Time Associated Diagnosis Comments UA MACROSCOPIC WITH REFLEX TO MICRO AND CULTURE Routine 12/25/2023 12:38 PM CDT Dysuria URINE MICROSCOPIC EXAM Routine 12/25/2023 12:38 PM CDT Dysuria URINE CULTURE Routine 12/25/2023 12:38 PM CDT Dysuria documented in this encounter Results * (ABNORMAL) Urine Culture (12/25/2023 12:38 PM CDT) Culture 10,000-50,000 CFU/mL Streptococcus agalactiae (Group B [...] - MICRO GENERAL ORDERABLES [facility] Inf. Diseases Diag. Lab [address] [facility], [address] [place] [id number] * (ABNORMAL) Urine Microscopic Exam (12/25/2023 12:38 PM CDT) Bacteria Urine Few(A) None Seen /HPF CRISTOBAL [...] LAB - URINE ORDERABL ES LV LABORATORY [facility] [address] [facility] Lab (no room number, [address]st floor [facility]) [place] [address] [phone] * (ABNORMAL) UA Macroscopic with reflex to Microscopic and Culture (12/25/2023 12:38 PM CDT) Color Urine Yellow Colorless, Straw, Light Yellow, Yellow 12/25/2023 1:20 PM CDT LABORATORY Appearance Urine Slightly Cloudy(A) Clear 12/25/2023 1:20 PM CDT LABORATORY Glucose Urine Negative Negative mg/dL 12/25/2023 1:20 PM CDT LABORATORY Bilirubin Urine Negative Negative 1:20 PM CDT LABORATORY Ketones Urine Negative Negative mg/dL 12/25/2023 1:20 PM CDT LABORATORY Specific [place] Urine 1.010 1.003 - 1.035 12/25/2023 1:20 PM CDT LABORATORY Blood Urine Moderate(A) Negative 12/25/2023 1:20 PM CDT LABORATORY pH Urine 6.0 5.0 - 7.0 12/25/2023 1:20 PM CDT LABORATORY Protein Albumin Urine 100(A) Negative mg/dL 12/25/2023 1:20 PM CDT LABORATORY Urobilinogen Urine 0.2 0.2, 1.0 E.U./dL 12/25/2023 1:20 PM CDT LABORATORY Nitrite Urine Negative Negative 12/25/2023 1:20 PM CDT LABORATORY Leukocyte Esterase Urine Large(A) Negative 12/25/2023 1:20 PM CDT LABORATORY Urine MID-STREAM URINE SPECIMEN / Unknown Non-blood Collection / Unknown 12/25/2023 12:38 PM CDT 12/25/2023 1:17 PM CDT Karina Joiner MD LAB - URINE ORDERABL ES LV LABORATORY [facility] [address] Lab (no room number, 1st floor of clinic) [place] [address], [facility] [phone] documented in this encounter Visit Diagnoses Diagnosis Dysuria- Primary Acute cystitis without hematuria Acute cystitis documented in this encounter Care Teams Personal Care Home Administrator Relationship Specialty Start Date End Date No Ref-Primary, Physician PCP - General 11/25/23 02/09/24 Tierra Musa MD [address] [address] Physician field test engineer 11/25/23 France Martinez MD [address] [address] field test engineer 11/25/23 Bridgett Garcia, DALTONC [address] [place] [address] Physician Substation Operator Anesthesiology 12/05/23 Grant Gray MD [address] [place] [address] field test engineer 12/05/23 Grant Gray MD [address] [place] [address] Assigned OBGYN Provider 12/12/23 documented as of this encounter
--- OUTSIDE RECORDS SUMMARY | 2024-02-28 15:26 | XMS_ITS | Encounter Summary ---
Author Organization [place] Address [address] [place] [address] Care Team Providers Care Risk Assessment Consultant Name Role Phone Tierra Musa MD Unavailable [phone] France Martinez MD Unavailable [phone] No Ref-Primary, Physician Primary Care Provider Bridgett Garcia PA-C Unavailable [phone] Grant Gray MD Unavailable [phone] Grant Gray MD Unavailable [phone] [facility]- Primary Care Provider Encounter Details Date Type Department Care Team (Late st Contact Info) Description 01/01/2024 MyC Medical Advice [facility] [address], [address] [place] [address] Grant Gray MD [address] [place] [address] Social History Tobacco Use Types Packs/Day Years Used Date Smoking Tobacco: Never Smokeless Tobacco: Never Adolescent Education Answer Date Record ed Getting School Help Needed Not on file 04/27 Sex and Gender Information Value Date Recorded Sex Assigned at Not on file Gender Identity Not on file Sexual Orientation Not on file documented as of this encounter Plan of Treatment Upcoming Encounters Date Type Department Care Team (Late st Contact Info) Description 03/25/2024 10:00 AM CDT Office Visit [facility] [address] [facility] [address] [place] [phone] Grant Gray MD [address] [place] [address] documented as of this encounter Visit Diagnoses Not on filedocumented in this encounter Care Teams Risk Assessment Consultant Relationship Specialty Start Date End Date No Ref-Primary, Physician PCP - General 11/25/23 02/09/24 [facility]- [address] [place] [address] PCP - General 02/10/24 Tierra Musa MD [address] [facility] [address] [place] [address] Physician religious assistant 11/25/23 France Martinez MD [facility] [address] [place] [address] religious assistant 11/25/23 Bridgett Garcia PA-C [address] [place], [place] [address] Physician Urology Physician Anesthesiology 12/05/23 Grant Gray MD [address] [place], [place] [address] religious assistant 12/05/23 Grant Gray MD [address] [place] [address] Assigned OBGYN Provider 12/12/23 documented as of this encounter
--- OUTSIDE RECORDS SUMMARY | 2024-02-28 15:26 | XMS_ITS | Encounter Summary ---
Author Organization [place] Address [address] [facility] [place] [address] Care Team Providers Care Front Desk Monitor Name Role Phone Tierra Musa MD Unavailable [phone] France Martinez MD Unavailable [phone] Ref-Primary, Physician Primary Care Provider Bridgett Garcia PA-C Unavailable [phone] Grant Gray MD Unavailable [phone] Encounter Details Date Type Department Care Team (Late st Contact Info) Description 12/11/2023 Orders Only [facility] Services - Womens and Child Service Line [facility] [place] [address] Grant Gray MD [address] [place] [address] Frequent UTI (Primary Dx) Social [...] Description 03/25/2024 10:00 AM CDT Office Visit [address], [address] [place] [address] Grant Gray MD [address] [place], [place] [address] Scheduled Orders Name Type Priority Associated Diagnoses Orde r Schedule UA with Microscopic Lab Routine Frequent UTI 5 Occurrences starting 12/11/2023 until 12/10/2024 Urine Culture Aerobic Bacterial - lab collect Microbiology Routine Frequent UTI 5 Occurrences starting 12/11/2023 until 12/10/2024 documented as of this encounter Visit Diagnoses Diagnosis Frequent UTI- Primary Urinary tract infection, site not specified documented in this encounter Care Teams Front Desk Monitor Relationship Specialty Start Date End Date No Ref-Primary, Physician PCP - General 11/25/23 02/09/24 Tierra Musa MD [address] [facility] 100 [place] [address] Physician manager food safety 11/25/23 France Martinez MD [facility] [address] [place] [address] manager food safety 11/25/23 Bridgett Garcia, DALTONC [address] [place] [address] Physician Bin Filler Anesthesiology 12/05/23 Grant Gray MD [address] [place] [address] manager food safety 12/05/23 documented as of this encounter
--- OUTSIDE RECORDS SUMMARY | 2024-02-28 15:26 | XMS_ITS | Encounter Summary ---
Author Organization [place] Address [address] [facility] [place] [address] Care Team Providers Care Account Development Manager Name Role Phone Tierra Musa MD Unavailable [phone] France Martinez MD Unavailable [phone] Ref-Primary, Physician Primary Care Provider Bridgett Garcia PA-C Unavailable [phone] Grant Gray MD Unavailable [phone] Grant Gray MD Unavailable [phone] Encounter Details Date Type Department Care Team (Late st Contact Info) Description 01/13/2024 12:30 PM CDT Lab [address] 1st [place] [address] Preop examination; Vaginal prolapse Social History Tobacco Use Types Packs/Day Years [...] Description 03/25/2024 10:00 AM CDT Office Visit [facility] [address] [place] [address], [address] [place] [address] Grant Gray MD [address] [place] [address] documented as of this encounter Procedures Procedure Name Priority Date/Time Associated Diagnosis Comments BASIC METABOLIC PANEL Routine 01/13/2024 12:07 PM CDT Preop examination Vaginal prolapse CBC WITH PLATELETS Routine 01/13/2024 12 :07 PM CDT Preop examination Vaginal prolapse documented in this encounter Results * CBC with platelets (01/13/2024 12:07 PM CDT) Pathologist [facility] WBC Count 7.0 4.0 - 11.0 10e3/uL 01/13/2024 12:14 PM CDT [facility] - CORE LAB RBC Count 4.60 3.80 - 5.20 10e6/uL 01/13/2024 12:14 PM CDT [facility] - CORE LAB Hemoglobin 13.8 11.7 - 15.7 g/dL 01/13/2024 12:14 PM CDT [facility] - CORE LAB Hematocrit 40.6 35.0 - 47.0 % 01/13/2024 12:14 PM CDT [facility] - CORE LAB MCV 88 78 - 100 fL 01/13/2024 12:14 PM CDT [facility] - CORE LAB MCH 30.0 26.5 - 33.0 pg 01/13/2024 12:14 PM CDT [facility] - CORE LAB MCHC 34.0 31.5 - 36.5 g/dL 01/13/2024 12:14 PM CDT [facility] - CORE LAB RDW 13.3 10.0 - 15.0 % 01/13/2024 12:14 PM CDT [facility] - CORE LAB Platelet Count 300 150 - 450 10e3/uL 01/13/2024 12:14 PM CDT [facility] - CORE LAB Blood STRUCTURE OF RIGHT UPPER LIMB / Unknown Venipuncture / Unknown 01/13/2024 12:07 PM CDT 01/13/2024 12:07 PM CDT Bridgett Garcia PA-C LAB - BLOOD ORDERABL ES [facility] - CORE LAB [facility] [place] [address] [facility] 1st [place] [address] * Basic metabolic panel (01/13/2024 12:07 PM CDT) Sodium 138 135 - 145 mmol/L 01/13/2024 12:34 PM CDT [facility] - CORE LAB Comment:Reference intervals for this test were updated on 04/16/2023 to more accurately reflect our healthy population. There may be differences in the flagging of prior results with similar values performed with this method. Interpretation of those prior results can be made in the context of the updated reference intervals. Potassium 4.4 3.4 - 5.3 mmol/L 01/13/2024 12:34 PM CDT [facility] - CORE LAB Chloride 102 98 - 107 mmol/L 01/13/2024 12:34 PM CDT [facility] - CORE LAB Carbon Dioxide (CO2) 25 22 - 29 mmol/L 01/13/2024 12:34 PM CDT [facility] - CORE LAB Anion Gap 11 7 - 15 mmol/L 01/13/2024 12:34 PM CDT [facility] - CORE LAB Urea Nitrogen 11.2 8.0 - 23.0 mg/dL 01/13/2024 12:34 PM CDT [facility] - CORE LAB Creatinine 0.86 0.51 - 0.95 mg/dL 01/13/2024 12:34 PM CDT [facility] - [facility]ORE LAB GFR Estimate 68 >60 mL/min/1. 73m2 01/13/2024 12:34 PM CDT [facility] - [facility]ORE LAB Comment:eGFR calculated usin 2020 CKD-EPI equation. Calcium 9.5 8.8 - 10.2 mg/dL 01/13/2024 12:34 PM CDT [facility] - CORE LAB Glucose 98 70 - 99 mg/dL 01/13/2024 12:34 PM CDT [facility] - CORE LAB Blood STRUCTURE OF RIGHT UPPER LIMB / Unknown Venipuncture / Unknown 01/13/2024 12:07 PM CDT 01/13/2024 12:07 PM CDT Bridgett Garcia PA-C LAB - BLOOD ORDERABL ES [facility] - CORE LAB [facility] - [address] [place] [address] documented in this encounter Visit Diagnoses Diagnosis Preop examination Preoperative examination, unspecified Vaginal prolapse Unspecified prolapse of vaginal gregorio documented in this encounter Care Teams Account Development Manager Relationship Specialty Start Date End Date No Ref-Primary, Physician PCP - General 11/25/23 02/09/24 Tierra Musa MD [address] [facility] 100 [place] [address] Physician inter com installer 11/25/23 Farnce Martinez MD [address] [address] MD inter com installer 11/25/23 Bridgett Garcia PA-C [address] [place] [id number] Physician Brine Mixer Operator Anesthesiology 12/05/23 Grant Gray MD [address] [place], [place] [address] inter com installer 12/05/23 Grant Gray MD [address] [place], [place] [address] Assigned OBGYN Provider 12/12/23 documented as of this encounter
--- OUTSIDE RECORDS SUMMARY | 2024-02-28 15:26 | XMS_ITS | Encounter Summary ---
Author Organization [place] Address [address] 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] Procedures OH CYSTOURETHROSCOPY OH LAPAROSCOPY, SURGICAL, COLPOPEXY SACROCOLPOPEXY, ROBOT-ASSISTED, WITH CYSTOSCOPY Periop Services [address], [address] [place] [address] Referral ID Status Reason Start Date Expiration Date Visits Re quested Visits Authorized [id number] 1 1 Encounter Details Date Type Department Care Team (Latest Contact Info) Description 02/10/2024 5:22 AM CDT - 02/10/2024 6:07 PM CDT Hospital Encounter [facility] PreOP/Phase II [address], [address] [place] [address] Grant Gray MD [address] [place] [address] S/P laparoscopic surgery (Primary Dx) Discharge Disposition: Home or Self Care Social History Tobacco Use Types Packs/Day Years [...] encounter Discharge Instructions * Discharge Instructions* Aston Ramesh RN - 02/10/2024 6:29 AM CDT Today you [...] about your procedure, call Dr. Gray at [phone] documented in this encounter Medications at Time [...] Stable COMPLICATIONS: none apparent SPECIMEN: None IMPLANTS: [employer] Y-mesh MEDICATIONS: Ancef 2g IV [...] A vaginal manip[facility] and was used to manipulate the [...] Description 03/25/2024 10:00 AM CDT Office Visit [address], [address] [place] [address] Grant Gray MD [address] [place] [address] documented as of this encounter Procedures Procedure [...] MD LAB - BLOOD ORDERABL ES LABORATORY [facility] Acute Care Lab [address] 1st floor, Room [address] [place] [address], [facility] [phone] documented in this encounter Visit Diagnoses Diagnosis S/P laparoscopic surgery- Primary Other postprocedural status documented in this encounter Administered Medications Inactive [...] grams/day. 1403 ($Given - Provi shad: Sandie Morgan, RN) acetaminophen (TYLENOL) tablet 975 mg (COMPLETED) 975 mg, Oral, ONCE, On Sat02/10/24 at 0600, For 1 dose, Give within 60 min of procedure. Hold if patient has taken acetaminophen within 4 hours. Maximum acetaminophen dose from all sources = 75 mg/kg/day not to exceed 4 grams/day., Pre-procedure 0606 ($Given - Provi shad: Disha Moya, KOBI) acetaminophen (TYLENOL) tablet 975 mg 975 mg, [...] RN) documented in this encounter Care Teams Firer Locomotive Relationship Specialty Start Date End Date [facility] [address] [place] [address] PCP - General 02/10/24 Tierra Musa MD [address] [place] [address] Physician billing department supervisor 11/25/23 France Martinez MD [facility] [address] [place] [address] billing department supervisor 11/25/23 Bridgett Garcia, MUNA [address] [place] [address] Physician Dirt Supervisor Anesthesiology 12/05/23 Grant Gray MD [address] [place] [address] billing department supervisor 12/05/23 Grant Gray MD [address] [place], [place] [address] Assigned OBGYN Provider 12/12/23 documented as of this encounter
--- OUTSIDE RECORDS SUMMARY | 2024-02-28 15:26 | XMS_ITS | Encounter Summary ---
Author Organization [place] Address [address] [facility] [place] [address] Care Team Providers Care Trailhead Construction Worker Name Role Phone Tierra Musa MD Unavailable [phone] France Martinez MD Unavailable [phone] Ref-Primary, Physician Primary Care Provider Bridgett Garcia PA-C Unavailable [phone] Grant Gray MD Unavailable [phone] Grant Gray MD Unavailable [phone] Encounter Details Date Type Department Care Team (Latest Contact Info) Description 01/13/2024 Travel Social History Tobacco Use Types Packs/Day [...] Description 03/25/2024 10:00 AM CDT Office Visit [address], [address] [place] [phone] Grant Gray MD [address] [place] [address] documented as of this encounter Visit Diagnoses Not on filedocumented in this encounter Care Teams Trailhead Construction Worker Relationship Specialty Start Date End Date No Ref-Primary, Physician PCP - General 11/25/23 02/09/24 Tierra Musa MD [address] [address] Physician glaze mixer 11/25/23 France Martinez MD [address] [address] glaze mixer 11/25/23 Bridgett Garcia PA-C [address] [place], [place] [address] Physician Intercell Connector Placer Anesthesiology 12/05/23 Grant Gray MD [address] [place], [place] [address] glaze mixer 12/05/23 Grant Gray MD [address] [place] [address] Assigned OBGYN Provider 12/12/23 documented as of this encounter
--- OUTSIDE RECORDS SUMMARY | 2024-02-28 15:26 | XMS_ITS | Encounter Summary ---
Author Organization [place] Address [address] [facility] [place] [address] Care Team Providers Care Relays Draftsperson Name Role Phone Tierra Musa MD Unavailable [phone] France Martinez MD Unavailable [phone] Ref-Primary, Physician Primary Care Provider Bridgett Garcia PA-C Unavailable [phone] Grant Gray MD Unavailable [phone] Grant Gray MD Unavailable [phone] [facility]- Primary Care Provider Encounter Details Date Type Department Care Team (Late st Contact Info) Description 12/06/2023 MyC [address] [facility] [address], [address] [place] [address] Grant Gray MD [address] [place] [address] Social History Tobacco Use Types [...] Encounters Date Type Department Care Team (Late Contact Info) Description 03/25/2024 10:00 AM CDT Office Visit [facility] [place] [address] [facility], [address] [place] [phone] Grant Gray MD [address] [place], [place] [address] documented as of this encounter Visit Diagnoses Not on filedocumented in this encounter Care Teams Relays Draftsperson Relationship Specialty Start Date End Date No Ref-Primary, Physician PCP - General 11/25/23 02/09/24 [facility]- [address] [place] [address] PCP - General 02/10/24 Tierra Musa MD [address] [facility] [address] [place] [id number] Physician stone repairer 11/25/23 France Martinez MD [facility] [address] [place] [address] stone repairer 11/25/23 Bridgett Garcia PA-C [address] [place], [place] [address] Physician Ibm Bpm Architect Anesthesiology 12/05/23 Grant Gray MD [address] [place], [place] [address] stone repairer 12/05/23 Grant Gray MD [address] [place] [address] Assigned OBGYN Provider 12/12/23 documented as of this encounter
--- OUTSIDE RECORDS SUMMARY | 2024-02-28 15:26 | XMS_ITS | Encounter Summary ---
Author Organization [place] Address [address] [facility] [place] [address] Care Team Providers Care Electronic Equipment Trades Worker Name Role Phone Tierra Musa MD Unavailable [phone] France Martinez MD Unavailable [phone] Ref-Primary, Physician Primary Care Provider Bridgett Garcia PA-C Unavailable [phone] Grant Gray MD Unavailable [phone] Reason for Visit * Reason Comments Urgent Care Pt has vaginal prola pse; scheduled robotic surgery for January to . Pt not able to completely empty bladder, having urinary urgency and incontinence recently. Encounter Details Date Type Department Care Team (Late st Contact Info) Description 12/08/2023 10:20 AM CDT Office Visit [facility] [place] [address] [place] [address] Karina Joiner MD [address] [place] [address] Acute cystitis without hematuria (Primary Dx); Dysuria Social History Tobacco Use Types Packs/Day Years [...] Sign Reading Time Taken Comments Blood Pressure 162/61 12/08/2023 10:41 AM CDT Pulse 62 12/08/2023 10:41 AM CDT Temperature 36.6 ??C (97.8 ??F) 12/08/2023 10:41 AM C DT Respiratory Rate - - Oxygen Saturation 97% 12/08/2023 10:41 AM CDT Inhaled Oxygen Concentration - - Weight 72.1 kg (159 lb) 12/08/2023 10:41 AM CDT Height 149.9 cm (4' 11) 12/08/2023 10:41 AM CDT Body Mass Index 32.11 12/08/2023 10:41 AM CDT documented in this encounter Patient Instructions * Patient Instructions* Karina Joiner MD - 12/08/2023 10:20 AM CDT It looks like you have a urinary tract infection today. We will treat this with an antibiotic called cefdinir. You should take cefdinir twice a day for the next 7 days. Continue to drink plenty of fluids. If you are suddenly and severely worsening despite being on theantibiotics, please go to the emergency room to get checked out. documented in this encounter Progress Notes * Karina Joiner MD - 12/08/2023 10:20 AM CDT ICD-10-CM 1. Acute cystitis without hematuria N30.00 cefdinir (OMNICEF) 300 MG capsule 2. Dysuria R30.0 UA Macroscopic with reflex to Microscopic and Culture - Lab Collect UA Macroscopic with reflex to Microscopic and Culture - Lab Collect Urine Microscopic Exam Urine Culture Likely E coli infection with positive nitrites on UA today. Recently had 3-day course of Bactrim, so will try cephalosporin for this course of therapy. Low suspicion for pyelo at this time given lackof systemic symptoms and absence of CVA tenderness. PLAN: Patient Instructions It looks like you have a urinary tract infection today. We will treat this with an antibiotic called cefdinir. You should take cefdinir twice a day for the next 7 days. Continue to drink plenty of fluids. If you are suddenly and severely worsening despite being on theantibiotics, please go to the emergency room to get checked out. SUBJECTIVE: Antonietta Gilbert is a 78 year old female who presents to today with suspected bladder infection. She has noticed suprapubic pressure/discomfort increasing over the last few days along with urinary frequency. Urine seemed darker than usual this morning and somewhat cloudy. Hasn't seen any gross blood with voids. No flank or back pain. Recent course of Bactrim x 3 days earlier this month. Urine cultures earlier this month both grew out mixed urogenital akil and UAs did not show any nitrites positive. History of E coli bladder infection a few months ago. Has vaginal prolapse repair scheduled for January with Dr. Gray. OBJECTIVE: BP (!) 162/61 Pulse 62 Temp 97.8 ??F (36.6 ??C) (Tympanic) Ht 1.499 m (4' 11) Wt 72.1 kg (159 lb) LMP (LMP Unknown) SpO2 97% BMI 32.11 kg/m?? GEN: well-appearing, in NAD Back: no CVA tenderness on either side Results for orders placed or performed in visit on 12/08/23 UA Macroscopic with reflex to Microscopic and Culture - Lab Collect Status: Abnormal Specimen: Urine, Midstream Result Value Ref Range Color Urine Yellow Colorless, Straw, Light Yellow, Yellow Appearance Urine Clear Clear Glucose Urine Negative Negative mg/dL Bilirubin Urine Negative Negative Ketones Urine Negative Negative mg/dL Specific [place] Urine 1.015 1.003 - 1.035 Blood Urine Moderate (A) Negative pH Urine 6.5 5.0 - 7.0 Protein Albumin Urine 100 (A) Negative mg/dL Urobilinogen Urine 0.2 0.2, 1.0 E.U./dL Nitrite Urine Positive (A) Negative Leukocyte Esterase Urine Large (A) Negative Urine Microscopic Exam Status: Abnormal Result Value Ref Range Bacteria Urine Moderate (A) None Seen /HPF RBC Urine 5-10 (A) 0-2 /HPF /HPF WBC Urine 25-50 (A) 0-5 /HPF /HPF Squamous Epithelials Urine Few (A) None Seen /LPF documented in this encounter Miscellaneous Notes * Result Encounter Note - Patti Vergara MD - 12/08/2023 10:20 AM CDT On cefdinir Patti Vergara MD documented in this encounter Plan of Treatment Upcoming Encounters Date Type Department Care Team (Late st Contact Info) Description 03/25/2024 10:00 AM CDT Office Visit [facility] [address] [place] [address], [address] [place] [phone] Grant Gray MD [address] [place] [address] documented as of this encounter Procedures Procedure Name Priority Date/Time Associated Diagnosis Comments UA MACROSCOPIC WITH REFLEX TO MICRO AND CULTURE Routine 12/08/2023 10:08 AM CDT Dysuria URINE MICROSCOPIC EXAM Routine 12/08/2023 10:08 AM CDT Dysuria URINE CULTURE Routine 12/08/2023 10:08 AM CDT Dysuria documented in this encounter Results * (ABNORMAL) Urine Culture (12/08/2023 10:08 AM CDT) Culture >100,000 CFU/mL Escherichia coli(A) 12/09/2023 10:15 PM CDT [facility] Urine MID-STREAM URINE SPECIMEN / Unknown Non-blood Collection / Unknown 12/08/2023 10:08 AM CDT 12/08/2023 10:19 AM CDT Narrative Organism Antibiotic Method Susceptibility Escherichia coli Ampicillin CRISTOBAL >=32 ug/mL: Resistant Escherichia coli Ampicillin/ Sulbactam CRISTOBAL 16 ug/mL: Intermediate Escherichia coli Piperacillin/Tazobactam CRISTOBAL <=4 ug/mL: Susceptible Escherichia coli Cefazolin CRISTOBAL <=4 ug/mL: Susceptible Comment:Cefazolin DC C breakpoints are for the treatment of uncomplicated urinary tract infections. For the treatment of systemic infections, please contact the laboratory for additional testing. Escherichia coli Cefoxitin CRISTOBAL <=4 ug/mL: Susceptible Escherichia coli Ceftazidime CRISTOBAL <=1 ug/mL: Susceptible Escherichia coli Ceftriaxone CRISTOBAL <=1 ug/mL: Susceptible Escherichia coli Cefepime CRISTOBAL <=1 ug/mL: Susceptible Escherichia coli Gentamicin CRISTOBAL <=1 ug/mL: Susceptible Escherichia coli Tobramycin CRISTOBAL <=1 ug/mL: Susceptible Escherichia coli Ciprofloxacin CRISTOBAL <=0.25 ug/mL: Susceptible Escherichia coli Levofloxacin CRISTOBAL <=0.12 ug/mL: Susceptible Escherichia coli Nitrofurantoin CRISTOBAL <=16 ug/mL: Susceptible Escherichia coli Trimethoprim/Sulfamethoxazole CRISTOBAL >16/304 ug/mL: Resistant [facility] - MICRO GENERAL ORDERABLES [facility] Inf. Diseases Diag. Lab [address] [facility] [place] [address], [facility] * (ABNORMAL) Urine Microscopic Exam (12/08/2023 10:08 AM CDT) Bacteria Urine Moderate( A) None Seen /HPF CRISTOBAL 12/08/2023 10:19 AM CDT LABORATORY RBC Urine 5-10(A) 0-2 /HPF /HPF CRISTOBAL 12/08/2023 10:19 AM CDT LABORATORY WBC Urine 25-50(A) 0-5 /HPF /HPF CRISTOBAL 12/08/2023 10:19 AM CDT LABORATORY Squamous Epithelials Urine Few(A) None Seen /LPF CRISTOBAL 12/08/2023 10:19 AM CDT LABORATORY Urine MID-STREAM URINE SPECIMEN / Unknown Non-blood Collection / Unknown 12/08/2023 10:08 AM CDT 12/08/2023 10:08 AM CDT Madai Lug[facility] [employer] LAB - URINE ORDERAB LES LABORATORY [facility] [address] [facility] Lab (no room number, 1st floor of clinic) [place] [address], [place] [phone] * (ABNORMAL) UA Macroscopic with reflex to Microscopic and Culture - Lab Collect (12/08/2023 10:08 AMCDT) Color Urine Yellow Colorless, Straw, Light Yellow, Yellow 12/08/2023 10:19 AM CDT LABORATORY Appearance Urine Clear Clear 12/08/19 10:19 AM CDT [facility] Glucose Urine Negative Negative mg/dL 12/08/2023 10:19 AM CDT [facility] Bilirubin Urine Negative Negative 10:19 AM CDT [facility] Ketones Urine Negative Negative mg/dL 12/08/2023 10:19 AM CDT [facility] Specific [place] Urine 1.015 1.003 - 1.035 12/08/2023 10:19 AM CDT LABORATORY Blood Urine Moderate(A) Negative 12/08/2023 10:19 AM CDT [facility] pH Urine 6.5 5.0 - 7.0 12/08/2023 10:19 AM CDT LABORATORY Protein Albumin Urine 100(A) Negative mg/dL 12/08/2023 10:19 AM CDT LABORATORY Urobilinogen Urine 0.2 0.2, 1.0 E.U./dL 12/08/2023 10:19 AM CDT [facility] Nitrite Urine Positive(A) Negative 12/08/2023 10:19 AM CDT LABORATORY Leukocyte Esterase Urine Large(A) Negative 12/08/2023 10:19 AM CDT LABORATORY Urine MID-STREAM URINE SPECIMEN / Unknown Non-blood Collection / Unknown 12/08/2023 10:08 AM CDT 12/08/2023 10:08 AM CDT Madai Johnson PA-C LAB - URINE ORDERAB LES [facility] [address] [facility] Lab (no room number, 1st floor of clinic) [place] [address], [facility] [phone] documented in this encounter Visit Diagnoses Diagnosis Acute cystitis without hematuria- Primary Acute cystitis Dysuria documented in this encounter Care Teams Electronic Equipment Trades Worker Relationship Specialty Start Date End Date No Ref-Primary, Physician PCP - General 11/25/23 02/09/24 Tierra Musa MD [address] [facility] [address] [place] [address] Physician apparel fashion designer 11/25/23 France Martinez MD [address] [address] MD apparel fashion designer 11/25/23 Bridgett Garcia PA-C [address] [place], [place] [address] Physician Block Making Machine Operator Anesthesiology 12/05/23 Grant Gray MD [address] [place], [place] [address] MD apparel fashion designer 12/05/23 documented as of this encounter
--- OUTSIDE RECORDS SUMMARY | 2024-02-28 15:26 | XMS_ITS | Encounter Summary ---
Author Organization [place] Address [address] [facility] [place] [address] Care Team Providers Care Multiple Drum Sander Helper Name Role Phone Tierra Musa MD Unavailable [phone] France Martinez MD Unavailable [phone] Ref-Primary, Physician Primary Care Provider Bridgett Garcia PA-C Unavailable [phone] Grant Gray MD Unavailable [phone] Encounter Details Date Type Department Care Team (Latest Contact Info) Description 12/08/2023 Travel Social History Tobacco Use Types Packs/Day [...] Description 03/25/2024 10:00 AM CDT Office Visit [facility] [address], [address] [place] [address] Grant Gray MD [address] [place], [place] [address] documented as of this encounter Visit Diagnoses Not on filedocumented in this encounter Care Teams Multiple Drum Sander Helper Relationship Specialty Start Date End Date No Ref-Primary, Physician PCP - General 11/25/23 02/09/24 Tierra Musa MD [address] [facility] [address] [place] [address] Physician floor worker transfer bay 11/25/23 France Martinez MD [address] [address] MD floor worker transfer bay 11/25/23 Bridgett Garcia PA-C [address] [place] [address] Physician Dairy Processing Supervisor Anesthesiology 12/05/23 Grant Gray MD [address] [place] [address] floor worker transfer bay 12/05/23 documented as of this encounter
--- OUTSIDE RECORDS SUMMARY | 2024-02-28 15:26 | XMS_ITS | Encounter Summary ---
Author Organization [facility] Address [address] [facility] [place] [address] Care Team Providers Care Packaging Supervisor Name Role Phone Tierra Musa MD Unavailable [phone] France Martinez MD Unavailable [phone] No Ref-Primary, Physician Primary Care Provider Bridgett Garcia PA-C Unavailable [phone] Grant Gray MD Unavailable [phone] Grant Gray MD Unavailable [phone] Reason for Visit * Reason Comments Pre-Op Exam Encounter Details Date Type Department Care Team (Latest Contact Info) Description 01/13/2024 11:15 AM CDT Office Visit [facility] Preoperative Assessment [address] [place] [address] Bridgett Garcia PA-C [address] [place] [address] [id number] Preop examination (Primary Dx); Vaginal prolapse Anesthesia Record Procedure Summary Procedure Name Responsible Anesthesiologist Anesthesia Start Time Anesthesia Stop Time ROBOT-ASSISTED SACROCOLPOPEXY WITH CYSTOSCOPY (Abdomen) Rekha Patel 02/10/24 0737 02/10/24 1142 Events Date Time Event Comment 02/10/2024 0646 0720 RN [employer] Ready for Procedure 0737 An Start Anesthesia Star t is defined as when the anesthesia provider assumed care, began anesthesia prep, remained continuously present with the patient, and excludes all time for performing the pre-anesthesia evaluation. The Pre-Anesthesia Evaluation was completed before Anesthesia Start. 0737 An Start Data 0738 AN REASSESS I attest that I have identified and re-evaluated the patient immediately before the induction of anesthesia and I am satisfied that the anesthetic plan is suitable for the patient's condition and procedure. The first vital signs recorded are pre- induction. Sam Razo APRN CRNA 0744 Anesthesia Ready for Procedu re 0745 An Induction 0746 An Intubation 0809 AN INCISION 0823 Quick Note Breath sounds a uscultated. Bilateral breath sounds equal. Alveolar recruitment maneuver on 100% FiO2. 0826 Quick Note Oxygen probe sw itched from finger to ear probe. 1032 MD Present 1033 Quick Note Warm blanket pl aced over patients head to try to warm patient up. 1057 Quick Note More warm blank ets placed on the lower half of the patient to try to warm the patient. 1135 AN Extubation All extubation criteria met prior to removal. 1137 MD Present 1138 an stop data 1142 An Stop Electronically signed by Eduardo Whipple APRN CRNA on February 10, 2024 11:42 AM Meds * Agents No agents on file. * Blood No blood administrations on file. Lines, Drains, and Airways Type Details Placement Removal Incision/Surgical Site 02/10/24; 0809; Abdomen; port sites x5 02/10/24 0809 by Sowmya Jaimes, RN Peripheral IV 02/10/24; 0625; 20 G ; Anterior, Left; Hand; Alcohol; 1 02/10/24 0625 by Disha Moya, KOBI 02/10/24 1907 by Inpatient, Nurse ETT Placement Date: 02/10/24; Placement Time: 07 (created via procedure documentation); Mask Ventilation: 2; Induction Type: Intravenous; Ease of Intubation: Easy; Technique: Video laryngoscopy; Tube Size: 7 mm; VL Blade Size: Molina 3; Grade View: 1; Adjucts: Stylet; Placement Person: RN [employer]; Attempts: 1 02/10/24 0746 by Danni Vargas APRN CRNA 02/10/24 1135 by Danni Vargas APRN CRNA Gastric Tube 02/10/24; 0750; Decompression; 18 fr; Respiratory status unchanged, Aspiration of gastric content 02/10/24 0750 by Danni Vargas APRN RN [employer] 02/10/24 1140 by Aston Ramesh RN Urethral Catheter 02/10/24; 0803; No; Surgical procedure; 16 fr 02/10/24 0803 by Sowmya Jaimes RN 02/10/24 1046 by Sowmya Jaimes RN Peripheral IV 02/10/24; 0817; 22 G ; BD; Right; Hand; Alcohol; 2 02/10/24 0817 by Danni Vargas APRN RN [employer] 02/10/24 1614 by Sandie Morgan RN documented in this encounter Social History Tobacco [...] Sign Reading Time Taken Comments Blood Pressure 144/82 01/13/2024 10:42 AM CDT Pulse 64 01/13/2024 10:42 AM CDT Temperature 36.8 ??C (98.3 ??F) 01/13/2024 1 0:42 AM CDT Respiratory Rate 16 01/13/2024 10:4 2 AM CDT Oxygen Saturation 96% 01/13/2024 10: 42 AM CDT Inhaled Oxygen Concentration - - Weight 71.6 kg (157 lb 12.8 oz) 024 10:42 AM CDT Height 149.9 cm (4' 11) 01/13/2024 10: 42 AM CDT Body Mass Index 31.87 01/13/2024 10:42 AM CDT documented in this encounter Patient Instructions * Patient Instructions* Shelly Fagan RN - 01/13/2024 11:15 AM CDT Name: Antonietta Gilbert : 1945 Today's Date: 01/13/2024 You were seen today for a pre-operative assessment in the: Pre-operative Anesthesia Assessment Center(PAC) [facility] [address] [place] [phone] phone [phone] You will be receiving a call with location, date, arrival time and diet instructions from Preadmission Nursing at your surgical site: -[facility]: [phone] Anesthesia recommendations for medications: Hold Multivitamin for 1 week before surgery Hold Ibuprofen for 1 day before procedure. Hold Naproxen for 4 days before procedure. No alcohol or cannabis products for 24 hours before your procedure Please DO NOT take the following medications the day of procedure: Hold Aspirin the day of surgery Calcium carbonate-vitamin D Flaxseed Furosemide (Lasix) Losartan (Cozaar) Magnesium Please take these medications the day of procedure: Acetaminophen (Tylenol) as needed Levothyroxine (Synthroid) Metoprolol succinate Nitrofurantoin Macrocrystal-monohydrate (Macrobid) Omeprazole (Prilosec) How do I prepare myself? - Please take 2 showers (one the night prior to surgery and one the morning of surgery) using Scrubcare or Hibiclens soap. Use this soap only from the neck to your toes. Leave the soap on your skin for one minute--then rinse thoroughly. You may use your own shampoo and conditioner. No other hair products. - Please remove all jewelry and body piercings. - No lotions, deodorants or fragrance. - No makeup or fingernail yemeni. - Bring your ID and insurance card. -If you have a Deep Brain Stimulator, a Spinal Cord Stimulator, or any implanted Neuro Device, you must bring the remote to your appointment For further questions regarding your surgery please call your surgeon's office. documented in this encounter H&P Notes * Bridgett Garcia PA-C - 01/13/2024 11:15 AM CDT Images from the original note were not included. Pre-Operative H & P CC: Preoperative exam to assess for increased cardiopulmonary risk while undergoing surgery and anesthesia. Date of Encounter: 01/13/2024 Primary Care Physician: No Ref-Primary, Physician Reason for visit: Encounter Diagnoses Name Primary? 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 Gilbert has a past medical history significant for hypertension, dyslipidemia, paroxysmal atrial fibrillation, not anticoagulated, hypothyroidism, obesity, GERD, and vaginal prolapse with recurrentUTIs. She met with Dr. Melendez and the above is now planned. History is obtained from the patient and chart review Hx of abnormal bleeding or anti-platelet use: Denies Menstrual history: No LMP recorded (lmp unknown). Patient has had a hysterectomy.: Past Medical History Past Medical History: Diagnosis Date Benign essential hypertension Dyslipidemia Gastroesophageal reflux disease without esophagitis Hypothyroidism Past Surgical History Past Surgical History: Procedure Laterality Date CHOLECYSTECTOMY HYSTERECTOMY 1989 with bladder repair SHOULDER SURGERY Bilateral bilateral rotaro cuff repairs TOTAL HIP ARTHROPLASTY Bilateral TOTAL KNEE ARTHROPLASTY Right 07/2023 Prior to Admission Medications Current Outpatient Medications Medication Sig Dispense Refill acetaminophen (TYLENOL) 162.5 mg half-tab Take by mouth every 4 hours as needed aspirin 81 MG EC tablet Take 81 mg by mouth three times a week M, W, Fr atorvastatin (LIPITOR) 10 MG tablet Take 10 mg by mouth every evening Calcium Carb-Cholecalciferol (CALCIUM CARBONATE-VITAMIN D3 PO) Take 1 tablet by mouth diltiazem ER (TIAZAC) 360 MG 24 hr ER beaded capsule Take 360 mg by mouth every evening Flaxseed, Linseed, (FLAXSEED OIL) 1000 MG CAPS Take by mouth daily furosemide (LASIX) 40 MG tablet Take 40 mg by mouth every morning levothyroxine (SYNTHROID/LEVOTHROID) 88 MCG tablet Take 88 mcg by mouth every morning losartan (COZAAR) 100 MG tablet Take 100 mg by mouth every morning MAGNESIUM PO Take 250 mg by mouth daily metoprolol succinate ER (TOPROL XL) 25 MG 24 hr tablet Take 25 mg by mouth every morning multivitamin (CENTRUM SILVER) tablet Take 1 tablet by mouth daily nitroFURantoin macrocrystal-monohydrate (MACROBID) 100 MG capsule Take 1 capsule (100 mg) by mouth daily 90 capsule 1 omeprazole (PRILOSEC) [address] capsule Take 40 mg by mouth every morning estradiol (ESTRACE) 0.1 MG/GM vaginal cream Place 1 g vaginally three times a week (Patient not taking: Reported on 01/13/2024) 42.5 g 3 Phenazopyridine HCl (AZO TABS PO) Daily (Patient not taking: Reported on 01/13/2024) Allergies Allergies Allergen Reactions Codeine Nausea and Vomiting Amlodipine Doxazosin Hydrochlorothiazide Latex Social History Social History Socioeconomic History Marital status: Spouse name: Not on file Number of children: Not on file Years of education: Not on file Highest education level: Not on file Occupational History Not on file Tobacco Use Smoking status: Never Smokeless tobacco: Never Substance and Sexual Activity Alcohol use: Not Currently Drug use: Not Currently Sexual activity: Not on file Other Topics Concern Not on file Social History Narrative Not on file Social Determinants of Health Financial Resource Strain: Not on file Food Insecurity: Not on file Transportation Needs: Not on file Physical Activity: Not on file Stress: Not on file Social Connections: Not on file Interpersonal Safety: Not on file Housing Stability: Not on file Family History Family History Problem Relation Age of Onset Anesthesia Reaction No family hx of Venous thrombosis No family hx of Review of Systems The complete review of systems is negative other than noted in the HPI or here. Anesthesia Evaluation Pt has had prior anesthetic. No history of anesthetic complications ROS/MED HX ENT/Pulmonary: (+) CHRIS risk factors, hypertension, (-) tobacco use, asthma and recent URI Neurologic: - neg neurologic ROS Cardiovascular: (+) Dyslipidemia hypertension- - - - - dysrhythmias, a-fib, Previous cardiac testing Echo: Date: Results: Stress Test: Date: 2015 Results: Final Impressions: 1. Negative stress echo for ischemia at a submaximal heart rate. Pt achievied only 80% of the age predicted maximum which will slightly decrease the sensitivity for detection of coronary artery disease. 2. Grossly normal rest screening echocardiogram. 3. During stress exam the patient developed chest pain and shortness of breath. 4. See separate report for EKG interpretation. 5. Post stress, normal left ventricular size, increased global systolic function with an estimated EF of >75%. ECG Reviewed: Date: Results: Cath: Date: Results: METS/Exercise Tolerance: 4 - Raking leaves, gardening Hematologic: - neg hematologic ROS (-) history of blood clots and history of blood transfusion Musculoskeletal: - neg musculoskeletal ROS GI/Hepatic: (+) GERD, Asymptomatic on medication, Renal/Genitourinary: - neg Renal ROS Endo: (+) thyroid problem, hypothyroidism, Obesity, (-) Type I DM and Type II DM Psychiatric/Substance Use: - neg psychiatric ROS Infectious Disease: - neg infectious disease ROS Malignancy: - neg malignancy ROS Other: - neg other ROS BP (!) 144/82 (BP Location: Right arm, Patient Position: Sitting, Cuff Size: Adult Regular) Pulse64 Temp 98.3 ??F (36.8 ??C) (Oral) Resp 16 Ht 1.499 m (4' 11) Wt 71.6 kg (157 lb 12.8 oz) LMP (LMP Unknown) SpO2 96% BMI 31.87 kg/m?? Physical Exam Constitutional: Awake, alert, cooperative, no apparent distress, and appears stated age. Eyes: Pupils equal, round and reactive to light, extra ocular muscles intact, sclera clear, conjunctiva normal. HENT: Normocephalic, oral pharynx with moist mucus membranes, good dentition. No goiter appreciated. Respiratory: Clear to auscultation bilaterally, no crackles or wheezing. Cardiovascular: Regular rate and rhythm, normal S1 and S2, and no murmur noted. No edema. Palpable pulses to radial and PT arteries. GI: Not assessed Lymph/Hematologic: No cervical lymphadenopathy and no supraclavicular lymphadenopathy. Genitourinary: deferred Skin: Warm and dry. Musculoskeletal: Full ROM of neck. There is no redness, warmth, or swelling of the joints. Gross motor strength is normal. Neurologic: Awake, alert, oriented to name, place and time. Cranial nerves II- XII are grossly intact. Gait is normal. Neuropsychiatric: Calm, cooperative. Normal affect. Prior Labs/Diagnostic Studies All labs and imaging personally reviewed Component Latest Ref Rng 01/13/2024 12:07 PM WBC 4.0 - 11.0 10e3/uL 7.0 RBC Count 3.80 - 5.20 10e6/uL 4.60 Hemoglobin 11.7 - 15.7 g/dL 13.8 Hematocrit 35.0 - 47.0 % 40.6 MCV 78 - 100 fL 88 MCH 26.5 - 33.0 pg 30.0 MCHC 31.5 - 36.5 g/dL 34.0 RDW 10.0 - 15.0 % 13.3 Platelet Count 150 - 450 10e3/uL 300 Component Latest Ref Rng 01/13/2024 12:07 PM Sodium 135 - 145 mmol/L 138 Potassium 3.4 - 5.3 mmol/L 4.4 Chloride 98 - 107 mmol/L 102 Carbon Dioxide (CO2) 22 - 29 mmol/L 25 Anion Gap 7 - 15 mmol/L 11 Urea Nitrogen 8.0 - 23.0 mg/dL 11.2 Creatinine 0.51 - 0.95 mg/dL 0.86 GFR Estimate >60 mL/min/1.73m2 68 Calcium 8.8 - 10.2 mg/dL 9.5 Glucose 70 - 99 mg/dL 98 EKG/ stress test - if available please see in ROS above The patient's records and results personally reviewed by this provider. Outside records reviewed from: Care Everywhere - Reviewed Director Pharmacy Services notes as well as outside cardiology notes LAB/DIAGNOSTIC STUDIES TODAY: CBC, BMP Assessment Antonietta Gilbert is a 78 year old female seen as a PAC referral for risk assessment and optimizationfor anesthesia. Plan/Recommendations Pt will be optimized for the proposed procedure. See below for details on the assessment, risk, andpreoperative recommendations NEUROLOGY - No history of TIA, CVA or seizure -Post Op delirium risk factors: Age ENT - No current airway concerns. Will need to be reassessed day of surgery. Mallampati: I TM: > 3 CARDIAC -Hypertension, dyslipidemia -Hold losartan and Lasix day of surgery. Continue diltiazem and metoprolol -History of paroxysmal atrial fibrillation, not on anticoagulation. This was diagnosed in 2016 and per patient has not happened since. She does report intermittent palpitations not associated with exertion and no other symptoms. No chest pain, no chest pressure, no FUENTES, no SOB. - EKG today shows NSR, inferior infarct, age undetermined - pt has no h/o heart disease and no symptoms which would suggest ischemic heart disease. She underwent total knee replacement in July of this year without issue. - she states she does not exercise purposefully, but she does light house work (can vacuum), she has been out in the yard picking up sticks. She does note experience any chest pain, FUENTES, or unusual fatigue with activity. - negative stress test 2015 - METS (Metabolic Equivalents) Patient performs 4 or more METS exercise without symptoms Total Score: 0 RCRI-Low risk: Class 2 0.9% complication rate Total Score: 1 RCRI: High Risk Surgery PULMONARY CHRIS Low Risk Total Score: 2 CHRIS: Hypertension CHRIS: Over 50 ys old - Denies asthma or inhaler use - Tobacco History History Smoking Status Never Smokeless Tobacco Never GI - GERD Controlled on medications: Proton Pump Inhibitor PONV High Risk Total Score: 3 1 AN PONV: Pt is Female 1 AN PONV: Patient is not a current smoker 1 AN PONV: Intended Post Op Opioids /RENAL - Baseline Creatinine 0.86 ENDOCRINE - BMI: Estimated body mass index is 31.87 kg/m?? as calculated from the following: Height as of this encounter: 1.499 m (4' 11). Weight as of this encounter: 71.6 kg (157 lb 12.8 oz). Obesity (BMI >30) - No history of Diabetes Mellitus HEME VTE Low Risk 0.26% Total Score: 1 VTE: Greater than 59 yrs old - No history of abnormal bleeding or antiplatelet use. MSK S/p right TKA 08/14/23 Different anesthesia methods/types have been discussed with the patient, but they are aware that the final plan will be decided by the assigned anesthesia provider on the date of service. Patient was discussed with Dr Abrams The patient is optimized for their procedure. AVS with information on surgery time/arrival time, meds and NPO status given by nursing staff. No further diagnostic testing indicated. Bridgett Garcia PA-C Preoperative Assessment Center [facility] documented in this encounter Plan of Treatment Upcoming Encounters Date Type Department Care Team (Late st Contact Info) Description 03/25/2024 10:00 AM CDT Office Visit [address], [address] [place] [address] Grant Gray MD [address] [place] [address] Pending Results Name Type Priority Associated Diagnoses Date /Time EKG 12-lead complete w/read - Clinics EKG Routine Preop examination 01/13/2024 11:09 AM CDT documented as of this encounter Procedures Procedure Name Priority Date/Time Associated Diagnosis Comments EKG 12-LEAD COMPLETE W/READ - CLINICS Routine 01/13/2024 11:09 AM CDT Preop examination documented in this encounter Results * CBC with platelets (01/13/2024 12:07 PM CDT) WBC Count 7.0 4.0 - 11.0 10e3/uL 01/13/2024 12:14 PM CDT [facility] RBC Count 4.60 3.80 - 5.20 10e6/uL 01/13/2024 12:14 PM CDT [facility] Hemoglobin 13.8 11.7 - 15.7 g/dL 01/13/2024 12:14 PM CDT [facility] Hematocrit 40.6 35.0 - 47.0 % 01/13/2024 12:14 PM CDT [facility] MCV 88 78 - 100 fL 01/13/2024 12:14 PM CDT [facility] MCH 30.0 26.5 - 33.0 pg 01/13/2024 12:14 PM CDT [facility] MCHC 34.0 31.5 - 36.5 g/dL 01/13/2024 12:14 PM CDT [facility] RDW 13.3 10.0 - 15.0 % 01/13/2024 12:14 PM CDT [facility] Platelet Count 300 150 - 450 10e3/uL 01/13/2024 12:14 PM CDT [facility] Blood STRUCTURE OF RIGHT UPPER LIMB / Unknown Venipuncture / Unknown 01/13/2024 12:07 PM CDT 01/13/2024 12:07 PM CDT Bridgett Garcia PA-C LAB - BLOOD ORDERABL ES [facility] [place] [address] [facility] 1st [place] [address] * Basic metabolic panel (01/13/2024 12:07 PM CDT) Sodium 138 135 - 145 mmol/L 01/13/2024 12:34 PM CDT [facility] Comment:Reference intervals for [...] 5.3 mmol/L 01/13/2024 12:34 PM CDT [facility] Chloride 102 98 - 107 mmol/L 01/13/2024 12:34 PM CDT [facility] Carbon Dioxide (CO2) 25 22 - 29 mmol/L 01/13/2024 12:34 PM CDT [facility] Anion Gap 11 7 - 15 mmol/L 01/13/2024 12:34 PM CDT [facility] Urea Nitrogen 11.2 8.0 - 23.0 mg/dL 01/13/2024 12:34 PM CDT [facility] Creatinine 0.86 0.51 - 0.95 mg/dL 01/13/2024 12:34 PM CDT [facility] GFR Estimate 68 >60 mL/min/1. 73m2 01/13/2024 12:34 PM CDT [facility] Comment:eGFR calculated us2020 CKD-EPI equation. Calcium 9.5 8.8 - 10.2 mg/dL 01/13/2024 12:34 PM CDT [facility] Glucose 98 70 - 99 mg/dL 01/13/2024 12:34 PM CDT [facility] Blood STRUCTURE OF RIGHT UPPER LIMB / Unknown Venipuncture / Unknown 01/13/2024 12:07 PM CDT 01/13/2024 12:07 PM CDT Bridgett E Glass PA-C LAB - BLOOD ORDERABL ES [facility] [address] 1[address] [place] [address] documented in this encounter Visit Diagnoses Diagnosis Preop examination- Primary Preoperative examination, unspecified Vaginal prolapse Unspecified prolapse of vaginal gregorio documented in this encounter Care Teams Packaging Supervisor Relationship Specialty Start Date End Date No Ref-Primary, Physician PCP - General 11/25/23 02/09/24 Tierra Musa MD [address] [place] [address] Physician transportation planner 11/25/23 France Martinez MD [address] [address] transportation planner 11/25/23 Bridgett Garcia PA-C [address] [place] [address] [phone] Physician Internal Communications Specialist Anesthesiology 12/05/23 Grant Gray MD [address] [place] [address] transportation planner 12/05/23 Grant Gray MD [address] [place] [address] Assigned OBGYN Provider 12/12/23 documented as of this encounter
--- OUTSIDE RECORDS SUMMARY | 2024-02-28 15:26 | XMS_ITS | Encounter Summary ---
Author Organization [place] Address [address] 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 [N99.3] Procedures AR CYSTOURETHROSCOPY AR LAPAROSCOPY, SURGICAL, COLPOPEXY SACROCOLPOPEXY, ROBOT-ASSISTED, WITH CYSTOSCOPY Periop Services [address], [address] [place] [address] Referral ID Status Reason Start Date Expiration Date Visits Re quested Visits Authorized [id number] 1 1 Encounter Details Date Type Department Care Team (Late st Contact Info) Description 02/10/2024 7:37 AM CDT Anesthesia Event [facility] PeriOP Services [address], [address] [place] [address] Rekha PatelVANCE ANESTHESIOLOGY [address] [place] [address] Anesthesia Record Procedure Summary Procedure Name Responsible Anesthesiologist Anesthesia Start Time Anesthesia Stop Time ROBOT-ASSISTED SACROCOLPOPEXY WITH CYSTOSCOPY (Abdomen) Rekha Patel 02/10/24 0737 02/10/24 1142 Events Date Time Event Comment 02/10/2024 0646 0720 CAUSTIC PREPARER Ready for Procedure 0737 An Start Anesthesia [...] recorded are pre- induction. Sam Razo APRN CAUSTIC PREPARER 0744 Anesthesia Ready for Procedu re 0745 [...] Stop Electronically signed by Eduardo Whipple APRN CAUSTIC PREPARER on February 10, 2024 11:42 AM Meds Name Total fentaNYL 50 mcg/mL 100 mcg lidocaine 2% 60 mg propofol 10 mg/mL 555.68 mg rocuronium 10 mg/mL 70 mg ePHEDrine 5 mg/mL in NS 5 mg dexamethasone (DECADRON) 4 mg/mL 4 mg ondansetron 2 mg/mL 4 mg glycopyrrolate 0.2 mg/mL 0.4 mg sugammadex (BRIDION) 200mg/2mL 200 mg ceFAZolin Sodium (ANCEF) injection 2 g 2 g dexmedeTOMIDine (PRECEDEX) 4 mcg/mL in N aCl 25mL 8 mcg lactated ringers infusion 1,500 mL * Agents Name O2 N2O Air Exp Sevoflurane Exp Isoflurane Exp Desflurane Ins Sevoflurane Ins Isoflurane Ins Desflurane * Blood No blood administrations on file. Lines, Drains, and Airways Type Details Placement Removal Incision/Surgical Site 02/10/24; 0809; Abdomen; port sites x5 02/10/24 0809 by Sowmya Jaimes RN Peripheral IV 02/10/24; 0625; 20 G ; Anterior, Left; Hand; Alcohol; 1 02/10/24 0625 by Disha Moya RN 02/10/24 1907 by Inpatient, Nurse ETT Placement Date: 02/10/24; Placement Time: 745 (created via procedure documentation); Mask Ventilation: 2; Induction Type: Intravenous; Ease of Intubation: Easy; Technique: Video laryngoscopy; Tube Size: 7 mm; VL Blade Size: Molina 3; Grade View: 1; Adjucts: Stylet; Placement Person: CAUSTIC PREPARER; Attempts: 1 02/10/24 0746 by Danni Vargas APRN CAUSTIC PREPARER 02/10/24 1135 by Danni Vargas APRN CAUSTIC PREPARER Gastric Tube 02/10/24; 0750; Decompression; 18 fr; Respiratory status unchanged, Aspiration of gastric content 02/10/24 0750 by Danni Vargas APRN CAUSTIC PREPARER 02/10/24 1140 by Aston Ramesh RN Urethral Catheter 02/10/24; 0803; No; Surgical procedure; 16 fr 02/10/24 0803 by Sowmya Jaimes RN 02/10/24 1046 by Sowmya Jaimes RN Peripheral IV 02/10/24; 0817; 22 G ; BD; Right; Hand; Alcohol; 2 02/10/24 0817 by Danni Vargas APRN CAUSTIC PREPARER 02/10/24 1614 by Sandie Morgan RN documented [...] on file documented as of this encounter OR Notes * Anesthesia Postprocedure Evaluation - Rekha Patel - 02/10/2024 2:42 PM CDT Patient: Antonietta Gilbert Procedure: Procedure(s): ROBOT-ASSISTED SACROCOLPOPEXY WITH CYSTOSCOPY Anesthesia Type: General Note: Disposition: Inpatient Postop Pain Control: Uneventful Sign Out: Well controlled pain PONV: No Neuro/Psych: Uneventful Sign Out: Acceptable/Baseline neuro status Airway/Respiratory: Uneventful Sign Out: Acceptable/Baseline resp. status CV/Hemodynamics: Uneventful Sign Out: Acceptable CV status; No obvious hypovolemia; No obvious fluid overload Other NRE: NONE DID A NON-ROUTINE EVENT OCCUR? Last vitals: Vitals Value Taken Time BP 125/57 02/10/24 1300 Temp 35.9 ??C (96.7 ??F) 02/10/24 1230 Pulse 59 02/10/24 1310 Resp 18 02/10/24 1310 SpO2 93 % 02/10/24 1319 Vitals shown include unfiled device data. Electronically Signed By: Rekha Patel February 10, 2024 2:42 PM * Anesthesia Procedure Notes - Rekha Patel - 02/10/2024 1:44 PM CDTAssociated Order(s): Peripheral/Paravertebral Block TAP Procedure Note Pre-Procedure Staff - Anesthesiologist: Rekha Patel Performed By: anesthesiologist Location: OR Pre-Anesthestic Checklist: patient identified, IV checked, site marked, risks and benefits discussed, informed consent, monitors and equipment checked, pre-op evaluation, at physician/surgeon's request and post-op pain management Timeout: Correct Patient: Yes Correct Procedure: Yes Correct Site: Yes Correct Position: Yes Correct Laterality: Yes Site Marked: Yes Procedure Documentation Procedure: TAP Laterality: bilateral Patient Position: supine Skin prep: Chloraprep Local skin infiltrated with 1 mL of 1% lidocaine. Needle Type: insulated Needle Gauge: 21. Needle Length (millimeters): 100 Ultrasound guided 1. Ultrasound was used to identify targeted nerve, plexus, vascular marker, or fascial plane and place a needle adjacent to it in real-time. 2. Ultrasound was used to visualize the spread of anesthetic in close proximity to the above referenced structure. 3. A permanent image is entered into the patient's record. 4. The visualized anatomic structures appeared normal. 5. There were no apparent abnormal pathologic findings. Assessment/Narrative The placement was negative for: blood aspirated, painful injection and site bleeding Paresthesias: No. Bolus given via needle.. Secured via. Insertion/Infusion Method: Single Shot Complications: none Comments: Bolus via needle, 25 mL of 0.25% bupivacaine with 1:800,000 epinephrine, bilaterally, fora total of 50 mL. Under ultrasound guidance, [...] this patient to me for the performance ofregional analgesia block for post op pain control. It is requested of me because I am uniquely trained and qualified to perform this block and the surgeon is neither trained nor qualified to perform this procedure. FOR [facility] ([facility]) ONLY: Pain Team Contact information: please page the Pain Team Via [employer]Search Pain. During daytime hours, please page the attending first. At night please page the resident first. * Anesthesia Procedure Notes - Danni Vargas APRN CAUSTIC PREPARER - 02/10/2024 8:17 AM CDTAssociated Order(s): Airway Airway Patient location during procedure: OR Procedure Start/Stop Times: 02/10/2024 7:46 AM Staff - CAUSTIC PREPARER: Danni Vargas APRN CAUSTIC PREPARER Performed By: CAUSTIC PREPARER Consent for Airway Urgency: elective Indications and Patient Condition Indications for airway management: eugenio-procedural Induction type:intravenous Mask difficulty assessment: 2 - vent by mask + OA or adjuvant +/- NMBA Final Airway Details Final airway type: endotracheal airway Successful airway: ETT - single Endotracheal Airway Details ETT size (mm): 7.0 Cuffed: yes Successful intubation technique: video laryngoscopy VL Blade Size: Molina 3 Grade View of Cords: 1 Adjucts: stylet Position: Right Measured from: lips Secured at (cm): 21 Bite block used: None Post intubation assessment Placement verified by: capnometry, equal breath sounds and chest rise Number of attempts at approach: 1 Number of other approaches attempted: 0 Secured with: tape Ease of procedure: easy Dentition: Intact and Unchanged Medication(s) Administered Medication Administration Time: 02/10/2024 7:46 AM * Anesthesia Preprocedure Evaluation - Rekha Patel - 02/10/2024 6:45 AM CDT Anesthesia Pre-Procedure Evaluation Patient: Antonietta Gilbert : 1945 Procedure : Procedure(s): SACROCOLPOPEXY, ROBOT-ASSISTED, WITH CYSTOSCOPY Past Medical History: Diagnosis Date Benign essential hypertension Dyslipidemia Gastroesophageal reflux disease without esophagitis Hypothyroidism Migraine Past Surgical History: Procedure Laterality Date CHOLECYSTECTOMY COLONOSCOPY HYSTERECTOMY 1989 with bladder repair SHOULDER SURGERY Bilateral bilateral rotaro cuff repairs TOTAL HIP ARTHROPLASTY Bilateral TOTAL KNEE ARTHROPLASTY Right 07/2023 Allergies Allergen Reactions Codeine Nausea and Vomiting Amlodipine Doxazosin Hydrochlorothiazide Latex Social History Tobacco Use Smoking status: Never Smokeless tobacco: Never Substance Use Topics Alcohol use: Not Currently Wt Readings from Last 1 Encounters: 02/10/24 70.8 kg (156 lb 1.6 oz) Anesthesia Evaluation Pt has had prior anesthetic. ROS/MED HX ENT/Pulmonary: - neg pulmonary ROS (-) tobacco use and asthma Neurologic: (-) no seizures and migraines Cardiovascular: (+) hypertension- - - - - dysrhythmias, a-fib, METS/Exercise Tolerance: Hematologic: Musculoskeletal: GI/Hepatic: (+) GERD, Asymptomatic on medication, Renal/Genitourinary: Endo: (+) thyroid problem, hypothyroidism, (-) Type II DM Psychiatric/Substance Use: Infectious Disease: Malignancy: Other: Physical Exam Airway Mallampati: III TM distance: > 3 FB Neck ROM: full Mouth opening: > 3 cm Respiratory Devices and Support Dental (+) Completely normal teeth Cardiovascular cardiovascular exam normal Pulmonary pulmonary exam normal OUTSIDE LABS: CBC: Lab Results Component Value Date WBC 7.0 01/13/2024 HGB 13.8 01/13/2024 HCT 40.6 01/13/2024 PLT 300 01/13/2024 BMP: Lab Results Component Value Date NA 138 01/13/2024 POTASSIUM 4.4 01/13/2024 CHLORIDE 102 01/13/2024 CO2 25 01/13/2024 BUN 11.2 01/13/2024 CR 0.86 01/13/2024 GLC 98 01/13/2024 COAGS: No results found for: PTT, INR, FIBR POC: No results found for: BGM, HCG, HCGS HEPATIC: No results found for: ALBUMIN, PROTTOTAL, ALT, AST, GGT, ALKPHOS, BILITOTAL,BILIDIRECT, JEY OTHER: Lab Results Component Value Date PADMINI 9.5 01/13/2024 Anesthesia Plan ASA Status: 2 Anesthesia Type: General. - Airway: ETT Induction: Intravenous. Maintenance: Balanced. Techniques and Equipment: - Airway: Video-Laryngoscope Consents Anesthesia Plan(s) and associated risks, benefits, and realistic alternatives discussed. Questions answered and patient/u.s. representative(s) expressed understanding. - Discussed: - Discussed with: Patient Postoperative Care Pain management: IV analgesics, Oral pain medications. PONV prophylaxis: Ondansetron (or other 5HT-3), Dexamethasone or Solumedrol, Background Propofol Infusion Comments: Rekha Patel I have reviewed the pertinent notes and labs in the chart from the past 30 days and (re)examined the patient. Any updates or changes from those notes are reflected in this note. # Drug Induced Platelet Defect: home medication list includes an antiplatelet medication # Obesity: Estimated body mass index is 31.53 kg/m?? as calculated from the following: Height as of this encounter: 1.499 m (4' 11). Weight as of this encounter: 70.8 kg (156 lb 1.6 oz). documented in this encounter Miscellaneous Notes * Anesthesia Care Transfer Note - Eduardo Whipple APRN CRNA - 02/10/2024 11:42 AM CDT Patient: Antonietta Gilbert Procedure: Procedure(s): ROBOT-ASSISTED SACROCOLPOPEXY WITH CYSTOSCOPY Diagnosis: Prolapse of vaginal vault after hysterectomy [N99.3] Diagnosis Additional Information: No value filed. Anesthesia Type: General Note: Anesthesia Care Transfer Notewriter Vitals: Vitals Value Taken Time BP 126/54 Temp Pulse 55 Resp 16 SpO2 100 % 02/10/24 1141 Vitals shown include unfiled device data. Electronically Signed By: Eduardo Whipple APRN CRNA February 10, 2024 11:42 AM documented in this encounter Plan of Treatment Upcoming Encounters Date Type Department Care Team (Late st Contact Info) Description 03/25/2024 10:00 AM CDT Office Visit [address], [address] [place] [address] Grant Gray MD [address] [place], [place] [address] documented as of this encounter Procedures Procedure Name Priority Date/Time Associated Diagnosis Comments ANE PERIPHERAL/PARAVETEB RAL BLOCK Routine 02/10/2024 1:44 PM CDT ANE AIRWAY ETT PERFORMABLE Routine 02/10/2024 7:46 AM CDT documented in this encounter Results * Peripheral/Paravertebral Block (02/10/2024 1:44 PM CDT) [...] nor qualified to perform this procedure. FOR [facility] ([facility]) ONLY: ?? Pain Team Contact information: please page the Pain Team Via [employer]. Search Pain. During daytime hours, please page the attending first. At night please page the resident first. Rekha Patel AR ANESTHESIA * ANE AIRWAY ETT PERFORMABLE (02/10/2024 7:46 AM CDT) Narrative Danni Vargas APRN CAUSTIC PREPARER - 02/10/2024 7:46 AM CDT Danni Vargas APRN CAUSTIC PREPARER ? 02/10/2024 ??8:19 AM Airway ? Patient location during procedure: OR ? Procedure Start/Stop Times: 02/10/2024 7:46 AM Staff - ? CAUSTIC PREPARER: Danni Vargas APRN CAUSTIC PREPARER ? Performed By: CAUSTIC PREPARER Consent for Airway ? Urgency: elective Indications [...] Administration Time: 02/10/2024 7:46 AM Rekha Patel AR ANESTHESIA documented in this encounter Visit Diagnoses Not on filedocumented in this encounter Administered Medications Inactive Administered Medications - up to 3 most recent administrations Medication Order MAR Action Action Date Dose Rate Site ceFAZolin Sodium (ANCEF) injection 2 g Routine, 2 g, Intravenous, PRE-OP/PRE-PROCEDURE, Starting on Sat02/10/24 at 0537, For 1 dose, Give first dose within 1 hour PRIOR to incision. If patient weight is greater than or equal to 120 kg increase dose to 3 g., Indications: Perioperative Pharmacoprophylaxis, Pre-procedure $Given 02/10/2024 7:47 AM CDT 2 g dexAMETHasone (DECADRON) injection Intravenous, PRN, Administer over 1 Minutes, Starting on Sat02/10/24 at 0750, Anesthesia Intra-op $Given 02/10/2024 7:50 AM CDT 4 mg dexmedeTOMIDine (PRECEDEX) 4 mcg/mL in sodium chloride 0.9 % 50 mL infusion Intravenous, PRN, Starting on Sat02/10/24 at 0834, Anesthesia Intra-op $Given 02/10/2024 8:43 AM CDT 4 mcg $Given 02/10/2024 8:34 AM CDT 4 mcg ePHEDrine injection Intravenous, PRN, Starting on Sat02/10/24 at 0755, Anesthesia Intra-op $Given 02/10/2024 7:55 AM CDT 5 mg fentaNYL (PF) (SUBLIMAZE) injection Intravenous, PRN, Administer over 3-5 Minutes, Starting on Sat02/10/24 at 0745, Anesthesia Intra-op $Given 02/10/2024 7:45 AM CDT 100 mcg glycopyrrolate (ROBINUL) injection Intravenous, PRN, Administer over 1-2 Minutes, Starting on Sat02/10/24 at 0753, Anesthesia Intra-op $Given 02/10/2024 8:08 AM CDT 0.2 mg $Given 02/10/2024 7:53 AM CDT 0.2 mg lactated ringers infusion at 10 mL/hr, Intravenous, CONTINUOUS, IF patient NOT on dialysis., Pre-procedure, Starting on Sat02/10/24 at 0630, Until Sat02/10/24 at 1140 $New Bag 02/10/2024 8:55 AM CDT Restarted 02/10/2024 7:37 AM CDT $New Bag 02/10/2024 6:25 AM CDT 10 mL/hr lidocaine 2% injection (MDV) Intravenous, PRN, Starting on Sat02/10/24 at 0745, Anesthesia Intra-op $Given 02/10/2024 7:45 AM CDT 60 mg ondansetron (ZOFRAN) injection Intravenous, PRN, Administer over 2-5 Minutes, Starting on Sat02/10/24 at 1046, Anesthesia Intra-op $Given 02/10/2024 10:46 AM CDT 4 mg propofol (DIPRIVAN) injection 10 mg/mL vial Intravenous, PRN, Starting on Sat02/10/24 at 0745, Anesthesia Intra-op $New Bag 02/10/2024 8:00 AM CDT 30 mcg/kg/min 12.744 mL/hr $Given 02/10/2024 7:45 AM CDT 150 mg rocuronium injection Intravenous, PRN, Starting on Sat02/10/24 at 0745, Anesthesia Intra-op $Given 02/10/2024 9:44 AM CDT 10 mg $Given 02/10/2024 8:46 AM CDT 10 mg $Given 02/10/2024 7:45 AM CDT 50 mg sugammadex (BRIDION) injection Intravenous, PRN, Starting on Sat02/10/24 at 1100, Anesthesia Intra-op $Given 02/10/2024 11:00 AM CDT 200 mg documented in this encounter Care Teams Real Estate Rental Agent Relationship Specialty Start Date End Date [facility]- [address], [place] [address] PCP - General 02/10/24 Tierra Musa MD [address] [address] Physician slash trimmer 11/25/23 France Martinez MD [facility] [address] [place] [address] slash trimmer 11/25/23 Bridgett Garcia PA-C [address] [place], [place] [id number] Physician Communications Project Lead Anesthesiology 12/05/23 Grant Gray MD [address] [place] [address] slash trimmer 12/05/23 Grant Gray MD [address] [place] [address] Assigned OBGYN Provider 12/12/23 documented as of this encounter
--- OUTSIDE RECORDS SUMMARY | 2024-02-28 15:26 | XMS_ITS | Encounter Summary ---
Author Organization [facility] Address [address] [facility] [place] [address] Care Team Providers Care Aviation Safety Technician Name Role Phone Tierra Musa MD Unavailable [phone] France Martinez MD Unavailable [phone] No Ref-Primary, Physician Primary Care Provider Bridgett Garcia PA-C Unavailable [phone] Grant Gray MD Unavailable [phone] Grant Gray MD Unavailable [phone] [facility]- Primary Care Provider Encounter Details Date Type Department Care Team (Late st Contact Info) Description 01/22/[address] [facility] [address], [address] [place] [address] Grant Gray MD [address] [place] [address] Social History Tobacco Use Types [...] Description 03/25/2024 10:00 AM CDT Office Visit [facility] [address] [facility] [address] [place] [address] Grant Gray MD [address] [place] [address] documented as of this encounter Visit Diagnoses Not on filedocumented in this encounter Care Teams Aviation Safety Technician Relationship Specialty Start Date End Date No Ref-Primary, Physician PCP - General 11/25/23 02/09/24 [facility]- [address] [place] [address] PCP - General 02/10/24 Tierra Musa MD [address] [place] [address] [address] [place] [address] Physician billing associate 11/25/23 France Martinez MD [facility] [address] [place] [address] billing associate 11/25/23 Bridgett Garcia PA-C [address] [place] [address] Physician Nurse General Duty Anesthesiology 12/05/23 Grant Gray MD [address] [place] [address] billing associate 12/05/23 Grant Gray MD [address] [place] [address] Assigned OBGYN Provider 12/12/23 documented as of this encounter
--- OUTSIDE RECORDS SUMMARY | 2024-02-28 15:26 | XMS_ITS | Encounter Summary ---
Author Organization [facility] Address [address] [facility] [place] [address] Care Team Providers Care Liquid Flavor Compounder Name Role Phone Tierra Musa MD Unavailable [phone] France Martinez MD Unavailable [phone] No Ref-Primary, Physician Primary Care Provider Bridgett Garcia PA-C Unavailable [phone] Grant Gray MD Unavailable [phone] Grant Gray MD Unavailable [phone] Encounter Details Date Type Department Care Team (Late st Contact Info) Description 01/01/2024 Orders Only [facility] [address] [place] [address] Grant Gray MD [address] [place] [address] Recurrent UTI (Primary Dx) Social History Tobacco Use [...] Description 03/25/2024 10:00 AM CDT Office Visit [facility] [place] [address] [facility] [address] [facility] [address] [place] [address] Grant Gray MD [address] [place], [place] [address] documented as of this encounter Visit Diagnoses Diagnosis Recurrent UTI- Primary Urinary tract infection, site not specified documented in this encounter Care Teams Liquid Flavor Compounder Relationship Specialty Start Date End Date No Ref-Primary, Physician PCP - General 11/25/23 02/09/24 Tierra Musa MD [address] [facility] [address] [place] [address] Physician shipping specialist 11/25/23 France Martinez MD [facility] [address] [place] [address] shipping specialist 11/25/23 Bridgett Garcia PA-C [address] [place] [id number] Physician Collar Setter Overlock Anesthesiology 12/05/23 Grant Gray MD [address] [place], [place] [address] shipping specialist 12/05/23 Grant Gray MD [address] [place], [place] [address] Assigned OBGYN Provider 12/12/23 documented as of this encounter
--- OUTSIDE RECORDS SUMMARY | 2024-02-28 15:26 | XMS_ITS | Encounter Summary ---
Author Organization [place] Address [address] [facility] [place] [address] Care Team Providers Care Agriculture Sales Account Manager Name Role Phone Tierra Musa MD Unavailable [phone] France Martinez MD Unavailable [phone] No Ref-Primary, Physician Primary Care Provider Bridgett Garcia PA-C Unavailable [phone] Grant Gray MD Unavailable [phone] Grant Gray MD Unavailable [phone] Encounter Details Date Type Department Care Team (Late st Contact Info) Description 01/13/[address] [facility] [place] [address] [facility] [address] [place] [address] Bridgett Garcia PA-C [address] [place] [address] Social History Tobacco Use Types Packs/Day Years Used Date Smoking Tobacco: Never Smokeless Tobacco: Never Alcohol Use Standard Drinks/Week Comments Not Currently 0 (1 standard drink = 0.6 oz pur e alcohol) Adolescent Education Answer Date Record ed Getting School Help Needed Not on file 04/27 Sex and Gender Information Value Date Recorded Sex Assigned at Not on file Gender Identity Not on file Sexual Orientation Not on file documented as of this encounter Miscellaneous Notes * Telephone Encounter - Payal Washington - 12/09/2023 9:53 AM CDT FUTURE VISIT INFORMATION SURGERY INFORMATION: Date: 02/10/24 Location: or Surgeon: Grant Gray MD Anesthesia Type: general Procedure: SACROCOLPOPEXY, ROBOT-ASSISTED, WITH CYSTOSCOPY Consult: ov 12/04/23 RECORDS REQUESTED FROM: Pertinent Medical History: Atrial fibrillation documented in this encounter Plan of Treatment Upcoming Encounters Date Type Department Care Team (Late st Contact Info) Description 03/25/2024 10:00 AM CDT Office Visit [facility] [address] [facility] [address] [place] [address] Grant Gray MD [address] [place], [place] [address] documented as of this encounter Visit Diagnoses Not on filedocumented in this encounter Care Teams Agriculture Sales Account Manager Relationship Specialty Start Date End Date No Ref-Primary, Physician PCP - General 11/25/23 02/09/24 Tierra Musa MD [address] [facility] [address] [place], [place] [address] Physician vp of digital marketing 11/25/23 France Martinez MD [facility] [address] [place] [address] MD vp of digital marketing 11/25/23 Bridgett Garcia PA-C [address] [place], [place] [address] Physician Dental Laboratory Technician Anesthesiology 12/05/23 Grant Gray MD [address] [place], [place] [address] MD vp of digital marketing 12/05/23 Grant Gray MD [address] [place] [address] Assigned OBGYN Provider 12/12/23 documented as of this encounter
--- OUTSIDE RECORDS SUMMARY | 2024-02-28 15:26 | XMS_ITS | Encounter Summary ---
Author Organization [place] Address [address] [facility] [address] [facility] [place] [address] Care Team Providers Care Employee Health Rn Name Role Phone Tierra Musa MD Unavailable [phone] France Martinez MD Unavailable [phone] Ref-Primary, Physician Primary Care Provider Bridgett Garcia PA-C Unavailable [phone] Grant Gray MD Unavailable [phone] Grant Gray MD Unavailable [phone] Encounter Details Date Type Department Care Team (Latest Contact Info) Description 12/25/2023 Travel Social History Tobacco Use Types Packs/Day [...] Description 03/25/2024 10:00 AM CDT Office Visit [facility] [address], [address] [place] [address] Grant Gray MD [address] [place] [address] documented as of this encounter Visit Diagnoses Not on filedocumented in this encounter Care Teams Employee Health Rn Relationship Specialty Start Date End Date No Ref-Primary, Physician PCP - General 11/25/23 02/09/24 Tierra Musa MD [address] [address] Physician warehouse worker 11/25/23 France Martinez MD [address] [address] MD warehouse worker 11/25/23 Bridgett Garcia PA-C [address] [place] [address] Physician Tunnel Drier Operator Anesthesiology 12/05/23 Grant Gray MD [address] [place] [address] warehouse worker 12/05/23 Grant Gray MD [address] [place] [address] Assigned OBGYN Provider 12/12/23 documented as of this encounter
--- OUTSIDE RECORDS SUMMARY | 2024-02-28 15:26 | XMS_ITS | Encounter Summary ---
Author Organization [place] Address [address] [facility] [place] [address] Care Team Providers Care Cake Press Operator Helper Name Role Phone Tierra Musa MD Unavailable [phone] France Martinez MD Unavailable [phone] Ref-Primary, Physician Primary Care Provider Bridgett Garcia PA-C Unavailable [phone] Grant Gray MD Unavailable [phone] Grant Gray MD Unavailable [phone] [facility]- Primary Care Provider Reason for Visit * Reason Onset Date Comments Appointment 01/20/2024 Encounter Details Date Type Department Care Team (Late st Contact Info) Description 01/20/2024 Telephone [facility] [address], [address] [place] [address] Grant Gray MD [address] [place] [address] Appointment Social History Tobacco Use Types Packs/Day Years [...] encounter Miscellaneous Notes * Telephone Encounter - Jaelyn Swift - 01/20/2024 12:13 PM CDT [facility] Phone Message May a detailed message be left on voicemail: yes Reason for Call: Other: Patient called in regarding scheduling 6 week post op appointment. Per protocols commercial loan underwriter is unable to schedule post op appointments. Please reach out to patient regarding post op appointment. Action Taken: Other: Urology Travel Screening: Not Applicable documented in this encounter Plan of Treatment Upcoming Encounters Date Type Department Care Team (Late st Contact Info) Description 03/25/2024 10:00 AM CDT Office Visit [address] [place] [address] Grant Gray MD [address] [place] [address] documented as of this encounter Visit Diagnoses Not on filedocumented in this encounter Care Teams Cake Press Operator Helper Relationship Specialty Start Date End Date No Ref-Primary, Physician PCP - General 11/25/23 02/09/24 [facility]- [address] [place] [address] PCP - General 02/10/24 Tierra Musa MD [address] [facility] [address] [place] [address] Physician marine underwriter 11/25/23 France Martinez MD [address] [address] marine underwriter 11/25/23 Bridgett Garcia PA-C [address] [place], [place] [address] Physician Licensed Practical Nurse Clinic Nurse Anesthesiology 12/05/23 Grant Gray MD [address] [place], [place] [id number] marine underwriter 12/05/23 Grant Gray MD [address] [place], [place] [id number] Assigned OBGYN Provider 12/12/23 documented as of this encounter
--- OUTSIDE RECORDS SUMMARY | 2024-02-28 15:26 | XMS_ITS | Encounter Summary ---
Author Organization [place] Address [address] [facility] [place] [address] Care Team Providers Care Event Operations Manager Name Role Phone Tierra Musa MD Unavailable [phone] France Martinez MD Unavailable [phone] Ref-Primary, Physician Primary Care Provider Bridgett Garcia PA-C Unavailable [phone] Grant Gray MD Unavailable [phone] Encounter Details Date Type Department Care Team (Late st Contact Info) Description 2023 2:00 PM CDT Lab [facility] [address] [place] [address] [address] [place] [address] Frequent UTI Social History Tobacco Use Types Packs/Day Years [...] Description 03/25/2024 10:00 AM CDT Office Visit [facility] [address], [address] [place] [phone] rGant Gray MD [address] [place], [place] [address] documented as of this encounter Procedures Procedure Name Priority Date/Time Associated Diagnosis Comments ROUTINE UA WITH MICROSCOPIC Routine 2023 2:00 PM CDT Frequent UTI URINE MICROSCOPIC EXAM Routine 2023 2:00 PM CDT Frequent UTI URINE CULTURE Routine 2023 2:00 PM CDT Frequent UTI documented in this encounter Results * (ABNORMAL) Urine Microscopic Exam (2023 2:00 PM CDT) Bacteria Urine Few(A) None Seen /HPF [facility] 2023 2:21 PM CDT [facility] RBC Urine 2-5(A) 0-2 /HPF /HPF [facility] 2023 2:21 PM CDT [facility] WBC Urine 25-50(A) 0-5 /HPF /HPF [facility] 2023 2:21 PM CDT [facility] Squamous Epithelials Urine Few(A) None Seen /LPF [facility] 2023 2:21 PM CDT [facility] Urine MID-STREAM URINE SPECIMEN / Unknown Non-blood Collection / Unknown 2023 2:00 PM CDT 2023 2:00 PM CDT Narrative [facility] - 2023 2:21 PM CDT Microscopic exam performed on unspun urine. Grant Gray MD LAB - URINE ORDERABL ES [facility] [address], [address] [place] [address], [facility] [phone] * Urine Culture Aerobic Bacterial - lab collect (2023 2:00 PM CDT) Culture <10,000 CFU/mL Mixture of urogenital akil [facility] 12/07/2023 9:35 AM CDT [facility] Urine MID-STREAM URINE SPECIMEN / Unknown Non-blood Collection / Unknown 2023 2:00 PM CDT 2023 2:00 PM CDT Grant Gray MD LAB - MICRO GENERAL ORDERABLES [facility] Inf. Diseases Diag. Lab [address] [facility], [address] [place] [address] * (ABNORMAL) UA with Microscopic (2023 [...] 2023 2:18 PM CDT [facility] Specific [place] Urine 1.015 1.003 - 1.035 2023 2:18 [...] LAB - URINE ORDERABL ES [facility] [address], [address] [place] [address], [facility] [phone] documented in this encounter Visit Diagnoses Diagnosis Frequent UTI Urinary tract infection, site not specified documented in this encounter Care Teams Event Operations Manager Relationship Specialty Start Date End Date No Ref-Primary, Physician PCP - General 11/25/23 02/09/24 Tierra Musa MD [address] [facility] [address] [place] [address] Physician printed circuit board panels developer 11/25/23 France Martinez MD [address] [address] printed circuit board panels developer 11/25/23 Bridgett Garcia, PABessyC [address] [place] [address] Physician Machine Tracer Anesthesiology 12/05/23 Grant Gray MD [address] [place], [place] [address] printed circuit board panels developer 12/05/23 documented as of this encounter
--- OUTSIDE RECORDS SUMMARY | 2024-02-28 15:27 | XMS_ITS | Encounter Summary ---
Author Organization [place] Address [address] [facility] [place] [address] Care Team Providers Care Oil And Gas Drafter Name Role Phone Tierra Garcia MD Unavailable [phone] France Martinez MD Unavailable [phone] Ref-Primary, Physician Primary Care Provider Reason for Referral * Consultation (Routine: Next available opening) - Pending Review Specialty Diagnoses / Procedures Referred By Meggan barnes Referred To Contact Urology Diagnoses Retention of urine, unspecified Prolapse of vaginal vault after hysterectomy Frequent UTI Tierra Garcia MD [address] [facility] [address] [address] Referral ID Status Reason Start Date Expiration Date V isits Requested Visits Authorized [id number] Pending Review 11/25/2023 11/24/2024 1 1 Question Answer Referral Type: Uro/Substation Maintenance Technician Reason for Referral: Pelvic Organ Prolapse Scheduling Instructions: [email or web address] will call you to coordinate care as prescribed your provider. If you don? t hear from a inbound sales representative within 2 business days, please call . Additional Information: recurrent UTIs Comments Please be aware that coverage of these services is subject to the terms and limitations of your health insurance plan. Call member services at your health plan with any benefit or coverage questions. [email or web address] will call you to coordinate care as prescribed your provider. If you don? t hear from a inbound sales representative within 2 business days, please call . Reason for Visit * Reason Comments Urinary Problem Bladder prolapse, lo t of uti's * Consultation (Routine) - Pending Review Specialty Diagnoses / Procedures Referred By Meggan barnes Referred To Contact program development manager Diagnoses Retention of urine, unspecified Unspecified abdominal hernia without obstruction or gangrene Prolapse of vaginal vault after hysterectomy France Martinez MD [address] [address] Referral ID Status Reason Start Date Expiration Date V isits Requested Visits Authorized [id number] Pending Review 11/22/2023 11/21/2024 1 1 Encounter Details Date Type Department Care Team (Late st Contact Info) Description 11/25/2023 10:00 AM CDT Office Visit [address] [phone] France Martinez MD [address] [address] Tierra Garcia MD [address] [place] [phone] Retention of urine, unspecified (Primary Dx); Prolapse of vaginal vault after hysterectomy; Frequent UTI; Acute UTI (urinary tract infection) Social History Tobacco Use Types Packs/Day Years [...] Sign Reading Time Taken Comments Blood Pressure 126/68 11/25/2023 10:11 AM CDT Pulse - - Temperature - - Respiratory Rate - - Oxygen Saturation - - Inhaled Oxygen Concentration - - Weight 71.5 kg (157 lb 9.6 oz) 11/25/2023 10:11 AM CDT Height - - Body Mass Index - - documented in this encounter Progress Notes * Tierra Garcia MD - 11/25/2023 10:00 AM CDT [facility] MEASUREMENT ADVISOR Clinic Note SUBJECTIVE: Antonietta Gilbert is a 77 year old female who presents to clinic today for the following health issue(s): Patient presents with: Urinary Problem: Bladder prolapse, lot of uti's HPI: Seen today for bladder symptoms, prolapse. Of note, referral was placed by primary surgical garment assembly supervisor to see uro/edging machine operator, not general surgical garment assembly supervisor. This was disclosed to patient prior to start of visit, and she elects to continue with visit today. She describes UTI symptoms that started yesterday. Has recent history of frequent UTIs, most recently in mid October. Unable to empty bladder fully and thinks this is the reason. Had PVR evaluated at clinic visit which was elevated. Has hx of frequency, since August. Denies ANNABEL, denies urgency. Has to wake up frequently in the night to empty bladder. Outside notes reviewed- pessary placement was attempted and aborted due to severe discomfort. Goal was to temporarily alleviate urinary symptoms until uro/edging machine operator follow-up. Antonietta states she is still sore from pessary placement. She has a history of hysterectomy, bladder repair in 1989. Hx of x 2, large baby. No LMP recorded.. Patient is not sexually active, No obstetric history on file.. Using not sexually active for contraception. has no history on file for tobacco use. STD testing offered? Declined Health maintenance updated: yes Problem list and histories reviewed & adjusted, as indicated. Additional history: as documented. There is no problem list on file for this patient. No past surgical history on file. Social History Tobacco Use Smoking status: Not on file Smokeless tobacco: Not on file Substance Use Topics Alcohol use: Not on file No data available Current Outpatient Medications Medication Sig Dispense Refill acetaminophen (TYLENOL) 162.5 mg half-tab Q6H atorvastatin (LIPITOR) 10 MG tablet BEDTIME Calcium Carb-Cholecalciferol (CALCIUM CARBONATE-VITAMIN D3 PO) Take 1 tablet by mouth CELECOXIB PO Take 200 mg by mouth diltiazem ER (TIAZAC) 360 MG 24 hr ER beaded capsule Take by mouth daily Flaxseed, Linseed, (FLAXSEED OIL) 1000 MG CAPS Daily furosemide (LASIX) 40 MG tablet Take 40 mg by mouth daily levothyroxine (SYNTHROID/LEVOTHROID) 88 MCG tablet Take 88 mcg by mouth daily losartan (COZAAR) 100 MG tablet Take 100 mg by mouth daily MAGNESIUM PO Take 250 mg by mouth metoprolol succinate ER (TOPROL XL) 25 MG 24 hr tablet Take 25 mg by mouth daily omeprazole (PRILOSEC) [address] capsule Take 40 mg by mouth 2 times daily No current facility-administered medications for this visit. Allergies Allergen Reactions Codeine Nausea and Vomiting Amlodipine Doxazosin Hydrochlorothiazide Latex OBJECTIVE: BP 126/68 Wt 71.5 kg (157 lb 9.6 oz) There is no height or weight on file to calculate BMI. Exam: Constitutional: Appearance: Well nourished, well developed alert, in no acute distress ASSESSMENT/PLAN: ICD-10-CM 1. Retention of urine, unspecified R33.9 Starch Cooker Landing Signal Officer Referral Adult Uro/Substation Maintenance Technician Landing Signal Officer Referral 2. Unspecified abdominal hernia without obstruction or gangrene K46.9 Starch Cooker Landing Signal Officer Referral 3. Prolapse of vaginal vault after hysterectomy N99.3 Starch Cooker Landing Signal Officer Referral Adult Uro/Substation Maintenance Technician Landing Signal Officer Referral 4. 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 UA/UCx today. If UA shows UTI, will provide rx. Discussed empiric treatment, and then possibility of changing rx pending UCx. Had very recent pelvic exam and attempted pessary placement with surgical garment assembly supervisor. Surgery was discussed. Referral to uro/edging machine operator placed for further discussion. Offered attempt at pessary placement again today, declines due to ongoing discomfort. If unable to be seen by uro/edging machine operator in a timely manner, she will follow- up with surgical garment assembly supervisor for pessary placement for temporary relief of symptoms. Tierra Garcia MD, [facility] [place] 11/25/23 documented in this encounter Miscellaneous Notes * Addendum Note - Tierra Garcia MD - 11/25/2023 10:00 AM CDTAddended by: TIERRA GARCIA on: 11/25/2023 11:22 AM Modules accepted: Orders documented in this encounter Plan of Treatment Upcoming Encounters Date Type Department Care Team (Late st Contact Info) Description 03/25/2024 10:00 AM CDT Office Visit [facility] [place] [address] [place] [address], [address] [place] [phone] Grant Gray MD [address] [place], [place] [address] Scheduled Referrals Name Type Priority Associated Diagnoses Orde r Schedule Adult Uro/Substation Maintenance Technician Landing Signal Officer Referral Referral Routine: Next available opening Retention of urine, unspecified Prolapse of vaginal vault after hysterectomy Frequent UTI Expected: 11/25/2023 (Approximate), Expires: 11/24/2024 documented as of this encounter Procedures Procedure Name Priority Date/Time Associated Diagnosis Comments UA MICROSCOPIC WITH REFLEX TO CULTURE Routine 11/25/2023 10:47 AM CDT Frequent UTI ROUTINE UA WITH MICROSCOPIC REFLEX TO CULTURE Routine 11/25/2023 10:47 AM CDT Frequent UTI URINE CULTURE Routine 11/25/2023 10:47 AM CDT Frequent UTI documented in this encounter Results * Urine Culture (11/25/2023 10:47 AM CDT) Culture 10,000-50,000 CFU/mL Mixture of urogenital akil [facility] 11/26/2023 12:03 PM CDT [facility] Urine URINE SPECIMEN OBTAINED BY CLEAN CATCH PROCEDURE / Unknown Non-blood Collection / Unknown 11/25/2023 10:47 AM CDT 11/25/2023 10:50 AM CDT Tierra Garcia MD LAB - MICRO GENERAL ORDERABLES [facility] Inf. Diseases Diag. Lab [address] [facility] [place] [address], [facility] * (ABNORMAL) UA Microscopic with Reflex to Culture (11/25/2023 10:47 AM CDT) Bacteria Urine Moderate( A) None Seen /HPF [facility] 11/25/2023 10:56 AM CDT [facility] RBC Urine 2-5(A) 0-2 /HPF /HPF [facility] 11/25/2023 10:56 AM CDT [facility] WBC Urine >100(A) 0-5 /HPF /HPF [facility] 11/25/2023 10:56 AM CDT [facility] Squamous Epithelials Urine Moderate( A) None Seen /LPF [facility] 11/25/2023 10:56 AM CDT [facility] Urine URINE SPECIMEN OBTAINED BY CLEAN CATCH PROCEDURE / Unknown Non-blood Collection / Unknown 11/25/2023 10:47 AM CDT 11/25/2023 10:47 AM CDT Tierra Garcia MD LAB - URINE ORDERABL ES WE [address] [address], [facility] [phone] * (ABNORMAL) UA with Microscopic reflex to Culture - lab collect (11/25/2023 10:47 AM CDT) Color Urine Light Yellow Colorless, Straw, Light Yellow, Yellow 11/25/2023 10:51 AM CDT [facility] Appearance Urine Cloudy(A) Clear 11/25/19 10:51 AM CDT [facility] Glucose Urine Negative Negative mg/dL 11/25/2023 10:51 AM CDT [facility] Bilirubin Urine Negative Negative 10:51 AM CDT [facility] Ketones Urine Negative Negative mg/dL 11/25/2023 10:51 AM CDT [facility] Specific [place] Urine 1.010 1.003 - 1.035 11/25/2023 10:51 AM CDT [facility] Blood Urine Moderate(A) Negative 11/25/2023 10:51 AM CDT [facility] pH Urine 6.5 5.0 - 7.0 11/25/2023 10:51 AM CDT [facility] Protein Albumin Urine Negative Negative mg/dL 11/25/2023 10:51 AM CDT [facility] Urobilinogen Urine 0.2 0.2, 1.0 E.U./dL 11/25/2023 10:51 AM CDT [facility] Nitrite Urine Negative Negative 11/25/2023 10:51 AM CDT [facility] Leukocyte Esterase Urine Large(A) Negative 11/25/2023 10:51 AM CDT [facility] Urine URINE SPECIMEN OBTAINED BY CLEAN CATCH PROCEDURE / Unknown Non-blood Collection / Unknown 11/25/2023 10:47 AM CDT 11/25/2023 10:47 AM CDT Tierra Garcia MD LAB - URINE ORDERABL ES [facility] [address] [place] [address], [facility] [phone] documented in this encounter Visit Diagnoses Diagnosis Retention of urine, unspecified- Primary Prolapse of vaginal vault after hysterectomy Frequent UTI Urinary tract infection, site not specified Acute UTI (urinary tract infection) Urinary tract infection, site not specified documented in this encounter Care Teams Oil And Gas Drafter Relationship Specialty Start Date End Date No Ref-Primary, Physician PCP - General 11/25/23 02/09/24 Tierra Garcia MD [address] [address] Physician program development manager 11/25/23 France Martinez MD [facility] [address] [place] [address] program development manager 11/25/23 documented as of this encounter
--- OUTSIDE RECORDS SUMMARY | 2024-02-28 15:27 | XMS_ITS | Encounter Summary ---
Author Organization [place] Address [address] [facility] [place] [address] Care Team Providers Care Pinmaker Name Role Phone Tierra Garcia MD Unavailable [phone] France Martinez MD Unavailable [phone] Ref-Primary, Physician Primary Care Provider Reason for Referral * Consultation (Routine: Next available opening) - Pending Review Specialty Diagnoses / Procedures Referred By Meggan barnes Referred To Contact Diagnoses Prolapse of vaginal vault after hysterectomy Benign essential hypertension Grant Gray MD [address] [place] [address] Referral ID Status Reason Start Date Expiration Date V isits Requested Visits Authorized [id number] Pending Review 12/04/2023 12/03/2024 1 1 Question Answer Patient Has a History of: hypertension Scheduling Instructions: [facility] will call you to coordinate your care as prescribed by your provider. If you don't hear from a shared services representative within 2 business days, please call . Comments Please be aware that coverage of these services is subject to the terms and limitations of your health insurance plan. Call member services at your health plan with any benefit or coverage questions. [facility] will call you to coordinate your care as prescribed by your provider. If you don't hear from a shared services representative within 2 business days, please call . Reason for Visit * Reason Comments Consult Bladder prolapse and recurrent UTI * Consultation (Routine: Next available opening) - Pending Review Specialty Diagnoses / Procedures Referred By Meggan barnes Referred To Contact Urology Diagnoses Retention of urine, unspecified Prolapse of vaginal vault after hysterectomy Frequent UTI Tierra Garcia MD [address] [facility] [address] [place] [address] Referral ID Status Reason Start Date Expiration Date V isits Requested Visits Authorized [id number] Pending Review 11/25/2023 11/24/2024 1 1 Encounter Details Date Type Department Care Team (Late st Contact Info) Description 12/04/2023 9:30 AM CDT Office Visit [facility] [address] [facility], [address] [place] [phone] Grant Gray MD [address] [place] [address] Vaginal atrophy (Primary Dx); Retention of urine, unspecified; Prolapse of vaginal vault after hysterectomy; Frequent UTI; Benign essential hypertension; Atrial fibrillation, unspecified type (H); Ischemic colitis (H24) Social History Tobacco Use Types Packs/Day Years [...] Sign Reading Time Taken Comments Blood Pressure 128/70 12/04/2023 8:57 AM CDT Pulse - - Temperature - - Respiratory Rate - - Oxygen Saturation - - Inhaled Oxygen Concentration - - Weight 71.2 kg (157 lb) 12/04/2023 8:57 AM CDT Height 148.6 cm (4' 10.5) 12/04/2023 8:57 AM CD T Body Mass Index 32.25 12/04/2023 8:57 AM CDT documented in this encounter Progress Notes * Grant Gray MD - 12/04/2023 9:30 AM CDT December 04, 2023 Referring Provider: Tierra Garcia MD [address] [address] Primary Care Provider: No Ref-Primary, Physician CC: prolapse, urinary retention and recurrent UTIs HPI: Antonietta Gilbert is a 77 year old female who presents for evaluation of her pelvic floor symptoms. Antonietta reports worsening prolapse that is effecting her ability to empty her bladder and leading to recurrent UTIs. She was noted to have a cystocele and rectocele by her PCP in [place]. As a part of that evaluation she had a void of 150cc and an PVR of 145cc. Antonietta had a negative UC in 11/25/23, but did have a positive UC 09/15/23 for >110K CFU E. Coli. Dr. Garcia attempted to fit her with a pessary, but Antonietta was unable to tolerate due to discomfort. Prolapse: Do you feel a vaginal bulge? no Pressure? yes Do you have to place your fingers in the vagina or in the rectum to have a bowel movement? No Impact to quality of life? moderate Stress Incontinence: Do you leak urine with cough, sneeze, exercise? no How often do you leak with cough, sneeze, exercise? - How much do you usually leak? - Do you wear a pad? - If so; - Impact to quality of life? - Urge Incontinence: Do you often get sudden urges to urinate? yes How often do have urges? occ If so, do you leak with these urges? no How much do you usually leak? - Impact to quality of life? minimal Voids/day:6 Nocturia: 2 Fluid intake: 4 Caffeine: 2 Urinating: Difficulty starting urination or strain to void? no Weak or intermittent stream? no Incomplete emptying or dribbling? yes Pain or burning with urination? no Any blood in your urine? no GI: Constipation? no Frequency stools every 2-3 days Straining for stools no Stool consistency normal Ever leak stool (Accidental Bowel Leakage)? no If so, how often? - If so, do you leak? - Soiling without sensation? - History of irritable bowel or Crohn's? - Sexual/Pain: Are you currently having sex?. no Pain with sex? - Sexual Partner: - Do any of these symptoms interfere with sex? - Impact to quality of life? - Prior therapy: Ever done pelvic floor physical therapy? no Trial of medication? no Have you ever tried a pessary? no Medical History: Do you have? High Cholesterol? yes Diabetes? no High Blood pressure? yes Recurrent UTIs? yes Sleep Apnea? no Other medical problems: no Surgical History: Hysterectomy? Jan 1990 Bladder Surgery? 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 2 Deliveries? 2 Vaginal 2 Section - Current control? - Periods? - When was the first day of your last period? - Last Pap smear? - Any abnormal? - Last mammogram? - Last colonoscopy? - Medications/Vitamins/Supplements: reviewed Drug Allergies: reviewed Latex Allergy: yes Iodine Allergy no Family History: (list relationship and age at diagnosis) Breast cancer? - Ovarian cancer? - Colon cancer? - Other? - Social History: Marital status: Do you/ have you ever smoke(d) cigarettes? no Drink more than 1 alcoholic beverage a day? no Occupation? retired In the past 3 months have you regularly experienced: Chest pain w/ walking/exercise? no Unusual headaches? no Leg pain w/ walking/exercise? no Easy bruising? no Difficulty breathing w/ walking/exercise? no Problems with vision? no Dizziness, falls, or fainting? no Excessive bleeding from cuts, gums, surgery? no Other: no No past medical history on file. Past Surgical History: Procedure Laterality Date HYSTERECTOMY 1989 with bladder repair Social History Socioeconomic History Marital status: Spouse name: Not on file Number of children: Not on file Years of education: Not on file Highest education level: Not on file Occupational History Not on file Tobacco Use Smoking status: Not on file Smokeless tobacco: Not on file Substance and Sexual Activity Alcohol use: Not on file Drug use: Not on file Sexual activity: Not on file Other Topics Concern Not on file Social History Narrative Not on file Social Determinants of Health Financial Resource Strain: Not on file Food Insecurity: Not on file Transportation Needs: Not on file Physical Activity: Not on file Stress: Not on file Social Connections: Not on file Interpersonal Safety: Not on file Housing Stability: Not on file No family history on file. ROS Allergies Allergen Reactions Codeine Nausea and Vomiting Amlodipine Doxazosin Hydrochlorothiazide Latex Current Outpatient Medications Medication Sig Dispense Refill [...] 40 mg by mouth 2 times daily Phenazopyridine HCl (AZO TABS PO) Daily No current facility-administered medications for this visit. BP 128/70 Ht 1.486 m (4' 10.5) Wt 71.2 kg (157 lb) BMI 32.25 kg/m?? No LMP recorded. Body mass index is 32.25 kg/m??. Ms. Gilbert is alert, comfortable in no acute distress, non-labored breathing. Abdomen is soft, non-tender, non-distended, no CVAT. Normal external female genitalia. The urethra was normal appearing without mass, NT. She has a large cystocele and rectocele with vaginal vault prolapse on supine strain. Speculum and bimanual exam are remarkable for atrophic vaginal epithelium. 2/5 kegels. Rectal exam with normal tone, no masses or tenderness. 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 Treatment options to include: 1) observation with f/u in 6 -12 months 2) pessary fitting 3) surgical management Surgical options to include A&P repair and vaginal lone pine tissue repair or RA sacrocolpopexy with mesh. We discussed the risks benefits and alternatives to each procedure and the patient wishes to do RA sacrocolpopexy. We discussed that the risks to the procedure include but not limited to bleeding, infection, injuryto adjacent organs including bowel, bladder, and blood vessels, conversion to open procedure, de patric or worsening stress incontinence or urge incontinence, need for post-operative harvey catheter, need for further procedures including for mesh extrusion or erosion and possible failure of the procedure with recurrence of her prolapse. Patient expressed understanding and agreeable to proceed. I spent a total of 45 minutes with Ms. Gilbert on the date of the encounter in chart review, face to face patient visit, review of tests, documentation and/or discussion with other providers about the issues documented above. Grant Gray MD Professor, PLATE DRILLER Urogynecologist CC Patient Care Team: No Ref-Primary, Physician as PCP - General Tierra Garcia MD as Physician (door repairman) France Martinez MD as MD (door repairman) TIERRA GARCIA documented in this encounter Nursing Notes * Felecia England LPN - 12/04/2023 9:30 AM CDT Negative stress urinary testing. Pt unable to void. PVR=24 mL. documented in this encounter Plan of Treatment Upcoming Encounters Date Type Department Care Team (Late st Contact Info) Description 03/25/2024 10:00 AM CDT Office Visit [facility] [address], [address] [place] [phone] Grant Gray MD [address] [place] [address] Scheduled Referrals Name Type Priority Associated Diagnoses Orde r Schedule PAC Visit Referral (For [facility] Only) Referral Routine: Next available opening Prolapse of vaginal vault after hysterectomy Benign essential hypertension Expected: 12/04/2023 (Approximate), Expires: 12/03/2024 documented as of this encounter Visit Diagnoses Diagnosis Vaginal atrophy- Primary Postmenopausal atrophic vaginitis Retention of urine, unspecified Prolapse of vaginal vault after hysterectomy Frequent UTI Urinary tract infection, site not specified Benign essential hypertension Essential hypertension, benign Atrial fibrillation, unspecified type (H) Ischemic colitis (H24) Unspecified vascular insufficiency of intestine documented in this encounter Care Teams Pinmaker Relationship Specialty Start Date End Date No Ref-Primary, Physician PCP - General 11/25/23 02/09/24 Tierra Garcia MD [address] [facility] [address] [place] [address] Physician door repairman 11/25/23 France Martinez MD [facility] AND [address] [address] door repairman 11/25/23 documented as of this encounter
--- OUTSIDE RECORDS SUMMARY | 2024-02-28 15:27 | XMS_ITS | Encounter Summary ---
Author Organization [place] Address [address] [place] [address] Care Team Providers Care Aircraft Inspection Record Clerk Name Role Phone Tierra Musa MD Unavailable [phone] France Martinez MD Unavailable [phone] No Ref-Primary, Physician Primary Care Provider Encounter Details Date Type Department Care Team (Latest Contact Info) Description 11/25/2023 Travel Social History Tobacco Use Types Packs/Day [...] Description 03/25/2024 10:00 AM CDT Office Visit [facility] [address] [address] Grant Gray MD [address] [place], [place] [address] documented as of this encounter Visit Diagnoses Not on filedocumented in this encounter Care Teams Aircraft Inspection Record Clerk Relationship Specialty Start Date End Date No Ref-Primary, Physician PCP - General 11/25/23 02/09/24 Tierra Musa MD [address] [facility] [address] [place] [address] Physician cras 11/25/23 France Martinez MD [facility] [address] [place] [address] MD cras 11/25/23 documented as of this encounter
--- OUTSIDE RECORDS SUMMARY | 2024-02-28 15:27 | XMS_ITS | Encounter Summary ---
Author Organization [place] Address [address] [facility] [place] [address] Care Team Providers Care Bit Sharpener Operator Name Role Phone Tierra Musa MD Unavailable [phone] France Martinez MD Unavailable [phone] No Ref-Primary, Physician Primary Care Provider Encounter Details Date Type Department Care Team (Late st Contact Info) Description 12/04/2023 Telephone [facility] [address] [place] [facility] [address] [place] [phone] Merissa Yeboah CMA Social History Tobacco Use Types Packs/Day Years Used Date Smoking Tobacco: Never Assessed Adolescent Education Answer Date Record ed Getting School Help Needed Not on file 04/27 Sex and Gender Information Value Date Recorded Sex Assigned at Not on file Gender Identity Not on file Sexual Orientation Not on file documented as of this encounter Miscellaneous Notes * Telephone Encounter - Merissa Yeboah CMA - 12/04/2023 11:38 AM CDT LVM for patient to call back to schedule surgery with Dr. Marina Etienne documented in this encounter Plan of Treatment Upcoming Encounters Date Type Department Care Team (Late st Contact Info) Description 03/25/2024 10:00 AM CDT Office Visit [facility] [address], [address] [place] [address] Grant Gray MD [address] [place] [address] documented as of this encounter Visit Diagnoses Not on filedocumented in this encounter Care Teams Bit Sharpener Operator Relationship Specialty Start Date End Date No Ref-Primary, Physician PCP - General 11/25/23 02/09/24 Tierra Musa MD [address] [facility] [address] [place] [address] Physician movie machine operator 11/25/23 France Martinez MD [facility] [address] [place] [address] movie machine operator 11/25/23 documented as of this encounter
--- OUTSIDE RECORDS SUMMARY | 2024-02-28 15:27 | XMS_ITS | Encounter Summary ---
Author Organization [place] Address [address] [facility] [place] [address] Care Team Providers Care Manager Of Investigations Name Role Phone Tierra Musa MD Unavailable [phone] France Martinez MD Unavailable [phone] Ref-Primary, Physician Primary Care Provider Bridgett Garcia PA-C Unavailable [phone] Grant Gray MD Unavailable [phone] Grant Gray MD Unavailable [phone] [facility]- Primary Care Provider Encounter Details Date Type Department Care Team (Late st Contact Info) Description 2023 MyC Medical Advice [facility] [address] [place] [facility] [address] [place] [phone] Merissa Yeboah, KATY Social History Tobacco Use Types Packs/Day Years [...] Description 03/25/2024 10:00 AM CDT Office Visit [facility] [address], [address] [place] [address] Grant Gray MD [address] [place], [place] [address] documented as of this encounter Visit Diagnoses Not on filedocumented in this encounter Care Teams Manager Of Investigations Relationship Specialty Start Date End Date No Ref-Primary, Physician PCP - General 11/25/23 02/09/24 [facility]- [address] [place] [address] PCP - General 02/10/24 Tierra Musa MD [address] [facility] [address] [place] [address] Physician management sme 11/25/23 France Martinez MD [address] [address] management sme 11/25/23 Bridgett Garcia PA-C [address] [place] [address] Physician Plumber Supervisor Anesthesiology 12/05/23 Grant Gray MD [address] [place] [address] management sme 12/05/23 Grant Gray MD [address] [place] [address] Assigned OBGYN Provider 12/12/23 documented as of this encounter
--- OUTSIDE RECORDS SUMMARY | 2024-02-28 15:27 | XMS_ITS | Encounter Summary ---
Author Organization [place] Address [address] [facility] [place] [address] Care Team Providers Care Powder Mixer Name Role Phone Tierra Musa MD Unavailable [phone] France Martinez MD Unavailable [phone] No Ref-Primary, Physician Primary Care Provider Bridgett Garcia PA-C Unavailable [phone] Grant Gray MD Unavailable [phone] Grant Gray MD Unavailable [phone] [facility]- Primary Care Provider Encounter Details Date Type Department Care Team (Late st Contact Info) Description 2023 MyC Medical Advice [facility] [address], [address] [place] [address] Grant Gray MD [address] [place] [address] Social History Tobacco Use Types [...] 10:00 AM CDT Office Visit [facility] [place] [address] [facility], [address] [place] [address] Grant Gray MD [address] [place], [place] [address] documented as of this encounter Visit Diagnoses Not on filedocumented in this encounter Care Teams Powder Mixer Relationship Specialty Start Date End Date No Ref-Primary, Physician PCP - General 11/25/23 02/09/24 [facility]- [address] [place] [address] PCP - General 02/10/24 Tierra Musa MD [address] [facility] [address] [place] [address] Physician crotch piece baster 11/25/23 France Martinez MD [facility] [address] [place] [address] crotch piece baster 11/25/23 Bridgett Garcia PA-C [address] [place], [place] [address] Physician Marketing Support Coordinator Anesthesiology 12/05/23 Grant Gray MD [address] [place], [place] [address] crotch piece baster 12/05/23 Grant Gray MD [address] [place] [address] Assigned OBGYN Provider 12/12/23 documented as of this encounter
--- OUTSIDE RECORDS SUMMARY | 2024-02-28 15:27 | XMS_ITS | Encounter Summary ---
Author Organization [place] Address [address] [facility] [place] [address] Care Team Providers Care Helmet Hat Sweatband Puncher Name Role Phone Unavailable Primary Care Provider Unavailabl e Reason for Referral * Consultation (Routine) - Pending Review Specialty Diagnoses / Procedures Referred By Meggan t Referred To Contact apprentice lineman third step Diagnoses Retention of urine, unspecified Unspecified abdominal hernia without obstruction or gangrene Prolapse of vaginal vault after hysterectomy France Murphy MD [facility] [address] [place] [address] Referral ID Status Reason Start Date Expiration Date V isits Requested Visits Authorized [id number] Pending Review 11/22/2023 11/21/2024 1 1 Question Answer Is the patient being referred to Nursing Agency Manager by a [facility] Administration ([facility]) provider? No Reason for Referral: Bladder Scheduling Instructions: [facility] will call you to coordinate your care as prescribed by your provider. If you don't hear from a uniforms sales representative within 2 business days, please call . Comments Referral Transcribed by external fax Provider: FRANCE MURPHY affiliated with [facility]. VA: No If yes was is the VA Authorization Number: Phone number: [phone] [facility] will call you to coordinate your care as prescribed by your provider. If you don't hear from a uniforms sales representative within 2 business days, please call . Encounter Details Date Type Department Care Team (Late Contact Info) Description 11/22/2023 Transcribe Orders GENERIC EXTERNAL DATA DEPARTMENT Provider, Generic External Data Retention of urine, unspecified (Primary Dx); Unspecified abdominal hernia without obstruction or gangrene; Prolapse of vaginal vault after hysterectomy Social History Tobacco Use Types Packs/Day Years [...] Upcoming Encounters Date Type Department Care Team (Special Care Hospital Contact Info) Description 03/25/2024 10:00 AM CDT Office Visit [facility] for [address], [address] [place] [address] Grant Gray MD [address] [place] [address] Scheduled Referrals Name Type Priority Associated Diagnoses Orde r Schedule Nursing Agency Manager Reference Library Assistant Referral Referral Routine Retention of urine, unspecified Unspecified abdominal hernia without obstruction or gangrene Prolapse of vaginal vault after hysterectomy Expected: 11/22/2023 (Approximate), Expires: 11/21/2024 documented as of this encounter Visit Diagnoses Diagnosis Retention of urine, unspecified- Primary Unspecified abdominal hernia without obstruction or gangrene Prolapse of vaginal vault after hysterectomy documented in this encounter
--- OUTSIDE RECORDS SUMMARY | 2024-02-28 15:27 | XMS_ITS | Encounter Summary ---
Author Organization [place] Address [address] [place] [address] Care Team Providers Care Data Analysis Assistant Name Role Phone Tierra Musa MD Unavailable [phone] France Martinez MD Unavailable [phone] No Ref-Primary, Physician Primary Care Provider Encounter Details Date Type Department Care Team (Latest Contact Info) Description 12/04/2023 Travel Social History Tobacco Use Types Packs/Day [...] Description 03/25/2024 10:00 AM CDT Office Visit [facility] for Women [address] [address] Grant Gray MD [address] [place], [place] [address] documented as of this encounter Visit Diagnoses Not on filedocumented in this encounter Care Teams Data Analysis Assistant Relationship Specialty Start Date End Date No Ref-Primary, Physician PCP - General 11/25/23 02/09/24 Tierra Musa MD [address] [facility] [address] [place] [address] Physician dock loader 11/25/23 France Martinez MD [facility] [address] [place] [address] MD dock loader 11/25/23 documented as of this encounter
--- OUTSIDE RECORDS SUMMARY | 2024-02-28 15:27 | XMS_ITS | Clinical Summary ---
Author Organization [facility] Address [place], [place] [address] Care Team Providers Care Cord Splicer Name Role Phone Des Kapoor MD Primary Care Provider [phone] Allergies Active Allergy Reactions Criticality Noted Date [...] Date Resolved Date Infected sebaceous cyst 10/22/200812/20 nursing home (current) use of anticoagulants 10/04/2008 11/24/2008 Immunizations [...] Comments Blood Pressure 168/60 09/15/2023 3:58 PM CHIROPRACTIC ASSISTANT Pulse 66 09/15/2023 3:58 PM CHIROPRACTIC ASSISTANT Temperature 36.6 ??C (97.8 ??F) 09/15/2023 3:58 PM CS T Respiratory Rate 16 09/15/2023 3:58 PM CHIROPRACTIC ASSISTANT Oxygen Saturation 97% 09/15/2023 3:58 PM CHIROPRACTIC ASSISTANT Inhaled Oxygen Concentration - - Weight 72.6 kg (160 lb) 09/15/2023 3:58 PM CHIROPRACTIC ASSISTANT Height 148.6 cm (4' 10.5) 01/08/2013 8:06 [...] - PCV) 2009 Tetanus booster 01/06/2018 01/07/2008 COVID-19 vaccine series (2022- season) 2023 05/09/2023, 05/02/2022, 10/23/2021, Additional history exists Influenza for age 65+ 03/22/2024 04/15/2009 , 05/19/2008, 06/10/2007 DEXA/DXA scan for age 65+ Completed 06/10/2009 Procedures Procedure Name Priority Date/Time Associated Diagnosis Comments XR DXA BONE DENSITY 2 SITES AXIAL Routine 06/10/2009 10:50 AM CHIROPRACTIC ASSISTANT Screening for Osteoporosis from Last 3 Months or Most Recently Relevant to Health Maintenance Results * XR DEXA BONE DENSITY 2 SITES (06/10/2009 10:50 AM CHIROPRACTIC ASSISTANT) Anatomical Region Laterality Modality Spine, HIPS, HIPL, HIPR Other 06/10/2009 10:5 0 AM CHIROPRACTIC ASSISTANT Narrative 06/13/2009 2:49 PM CHIROPRACTIC ASSISTANT Please see scanned document for results of this study. Procedure Note Jennifer Lombardo - 06/21/2009 Please see scanned document for results of this study. Nicki Sarmiento MD DEXA from Last 3 Months or Most Recently Relevant to Health Maintenance Advance Directives * Full Code (Latest Code Status on File) Date Activated Date Inactivated Comments 01/07/2013 10:25 PM 01/15/2013 5:09 PM Care Teams Cord Splicer Relationship Specialty Start Date End Date Des Kapoor MD PCP - General Family Practice 01/15/13
== END 2024-02-28 15:17 | disposition home or self-care (01) ==
PROVIDERS: PCP Family Medicine; Visit Provider Family Medicine
DX: E78.00 Pure hypercholesterolemia, unspecified (principal); E03.9 Hypothyroidism, unspecified; I10 Essential (primary) hypertension; R39.15 Urgency of urination
CPT/HCPCS: 80048; 80061; 84443; 87086

== ENCOUNTER 2024-07-25 20:26 | Emergency (ER) | payer MEDICARE, BC, SELFPAY ==
[2024-07-25] VITALS (8 sets, daily range): BP systolic 144–201; BP diastolic 63–81; PULSE 63–82; RESP 16–20; TEMP 36.7; O2SAT 93–99; BMI 30.3
--- OUTSIDE RECORDS SUMMARY | 2024-07-25 20:28 | XMS_ITS | Clinical Summary ---
Author Organization [facility] Address [place], [place] [address] Care Team Providers Care Shank Stitcher Name Role Phone Des Kapoor MD Primary Care Provider [phone] Allergies Active Allergy Reactions Criticality Noted Date Comments Codeine Nausea Only Doxazosin Palpitations 08/06/2008 Hydrochlorothiazide Hyponatremia 07/07/2008 Latex Rash 01/07/2013 Blisters Amlodipine Edema 09/29/2008 Medications MULTIVITAMIN TAB take 1 tablet by oral [...] Active metoprolol succinate (TOPROL XL) 25 mg Sustained-Relea se tablet Take 1 tablet by mouth once [...] Leucocytosis 01/07/2013 ACP (advance care planning) 01/07/2013 Overview (01/07/2013): Patient has identified Health Care Agent(s): No Add Health Care Agents: No Patient has Advance Care Plan Documents (Health Care Directive, POLST): No, referral made to Social Work Services. Patient has identified Specific Treatment Preferences: Yes Specific Treatment Preferences: a.) Code Status: CPR/Attempt Resuscitation Colon polyp 05/30/2011 Overview (05/30/2011): Colonoscopy 05/2011 polyp repeat in 5 years GERD (gastroesophageal reflux disease) 0 Overview (05/08/2010): EGD 04/2010 normal Special screening for malignant neoplasms, colon 05/11/2009 Actinic keratosis 01/07/2009 Unspecified hypothyroidism 06/10/2007 Unspecified essential hypertension 06/10/2007 Resolved Problems Problem Noted Date Diagnosed Date Resolved Date Infected sebaceous cyst 10/22/200812/20 [facility] (current) use of anticoagulants 10/04/2008 11/24/2008 Immunizations [...] drink = 0.6 oz pur e alcohol) Comments No Sex and Gender Information Value Date Recorded Sex Assigned at Not on file Legal Sex Female 5:20 AM WHOLESALE ACCOUNT EXECUTIVE Gender Identity Not on file Sexual Orientation Not on file Obstetrics History Last Filed Vital Signs Vital Sign Reading Time Taken Comments Blood Pressure 168/60 09/15/2023 3:58 PM WHOLESALE ACCOUNT EXECUTIVE Pulse 66 09/15/2023 3:58 PM WHOLESALE ACCOUNT EXECUTIVE Temperature 36.6 C (97.8 F) 09/15/2023 3:58 PM WHOLESALE ACCOUNT EXECUTIVE Respiratory Rate 16 09/15/2023 3:58 PM WHOLESALE ACCOUNT EXECUTIVE Oxygen Saturation 97% 09/15/2023 3:58 PM WHOLESALE ACCOUNT EXECUTIVE Inhaled Oxygen Concentration - - Weight 72.6 kg (160 lb) 09/15/2023 3:58 PM WHOLESALE ACCOUNT EXECUTIVE Height 148.6 cm (4' 10.5) 01/08/2013 8:06 [...] age 65+ 2009 Pneumococcal series for age 50+ (1 of 1 - PCV) 2009 Tetanus booster 01/06/2018 01/07/2008 RSV vaccine for adults or (1 - 1-dose 75+ series) 12/06/2019 COVID-19 vaccine series ( season) 2024 05/09/2023, 05/02/2022, 10/23/2021, Additional history exists Influenza for age 65+ 03/22/2024 04/15/2009 , 05/19/2008, 06/10/2007 DEXA/DXA scan for age 65+ Completed 06/10/2009 Procedures Procedure Name Priority Date/Time Associated Diagnosis Comments XR DXA BONE DENSITY 2 SITES AXIAL Routine 06/10/2009 10:50 AM WHOLESALE ACCOUNT EXECUTIVE Screening for Osteoporosis from Last 3 Months or Most Recently Relevant to Health Maintenance Results * XR DEXA BONE DENSITY 2 SITES (06/10/2009 10:50 AM WHOLESALE ACCOUNT EXECUTIVE) Anatomical Region Laterality Modality Spine, HIPS, HIPL, HIPR Other 06/10/2009 10:5 0 AM WHOLESALE ACCOUNT EXECUTIVE Narrative 06/13/2009 2:49 PM WHOLESALE ACCOUNT EXECUTIVE Please see scanned document for results of this study. Procedure Note Jennifer Lombardo D - 06/21/2009 Please see scanned document for results of this study. us Nicki Sarmiento MD DEXA Final Result from Last 3 Months or Most Recently Relevant to Health Maintenance Insurance MEDICARE PART A HB ONLY MEDICARE PART B HB ONLY [place] BLUE HB ONLY BLUE CROSS MEDICARE ADVANTAGE MR Advance Directives * Full Code (Latest Code Status on File) Date Activated Date Inactivated Comments 01/07/2013 10:25 PM 01/15/2013 5:09 PM Care Teams Shank Stitcher Relationship Specialty Start Date End Date Des Kapoor MD PCP - General Family Practice 01/15/13
--- OUTSIDE RECORDS SUMMARY | 2024-07-25 20:28 | XMS_ITS | Encounter Summary ---
Author Organization [place] Address [address] [facility] [place] [address] Care Team Providers Care Law Tutor Name Role Phone Tierra Musa MD Unavailable [phone] France Martinez MD Unavailable [phone] Ref-Primary, Physician Primary Care Provider Bridgett Gacria PA-C Unavailable [phone] Grant Gray MD Unavailable [phone] Grant Gray MD Unavailable [phone] [facility]- Primary Care Provider Encounter Details Date Type Department Care Team (Late st Contact Info) Description 01/01/2024 MyC Medical Advice 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 Gender Identity Not on file Sexual Orientation Straight 03/24/2024 8: 46 PM CDT documented as of this encounter Plan of Treatment Not on file documented as of this encounter Visit Diagnoses Not on filedocumented in this encounter Care Teams Law Tutor Relationship Specialty Start Date End Date No Ref-Primary, Physician PCP - General 11/25/23 02/09/24 [facility]- [address] [place] [address] PCP - General 02/10/24 Tierra Musa MD [address] [facility] [address] [place] [address] Physician carpenter helper hardwood flooring 11/25/23 France Martinez MD [facility] [address] [place] [address] carpenter helper hardwood flooring 11/25/23 Bridgett Garcia PA-C [address] [place], [place] [address] Physician Cost Coordinator Anesthesiology 12/05/23 Grant Gray MD [address] [place], [place] [address] carpenter helper hardwood flooring 12/05/23 Grant Gray MD [address] [place], [place] [address] Assigned OBGYN Provider 12/12/23 documented as of this encounter
--- OUTSIDE RECORDS SUMMARY | 2024-07-25 20:28 | XMS_ITS | Clinical Summary ---
Author Organization [place] Address [address] [facility] [place] [address] Care Team Providers Care Amortization Schedule Clerk Name Role Phone Tierra Musa MD Unavailable [phone] France Martinez MD Unavailable Bridgett Garcia PA-C Unavailable [phone] Grant Gray MD Unavailable [phone] Grant Gray MD Unavailable [phone] [facility]- Primary Care Provider Allergies Active Allergy Reactions Criticality Noted Date Comments Amlodipine 11/20/2023 Codeine Nausea and Vomiting High 11/20/2023 Doxazosin 11/20/2023 Hydrochlorothiazide 11/20/2023 Latex 11/20/2023 Medications acetaminophen (TYLENOL) 162.5 mg half-tab Take by mouth every 4 hours as needed 4 Active atorvastatin (LIPITOR) 10 MG tablet Take 10 mg by mouth every evening 4 Active Calcium Carb-Cholecalci ferol (CALCIUM CARBONATE-VITAM IN D3 PO) Take 1 tablet by mouth 2 Active Flaxseed, Linseed, (FLAXSEED OIL) 1000 MG CAPS Take by mouth daily 3 Active levothyroxine (SYNTHROID/LEVO THROID) 88 MCG tablet Take 88 mcg by [...] HCl (AZO TABS PO) 3 Active nitroFURantoin macrocrystal-mo nohydrate (MACROBID) 100 MG capsuleIndicati ons:Recurrent UTI Take 1 capsule (100 mg) by mouth daily 90 capsule 1 4 Active aspirin 81 MG EC tablet Take 81 mg by mouth three times a week M, W, Fr Active multivitamin (CENTRUM SILVER) tablet Take 1 tablet by mouth daily Active estradiol (ESTRACE) 0.1 MG/GM vaginal creamIndication s:Vaginal atrophy Place 1 g vaginally three times a week 42.5 g 3 4 Active Active Problems Problem Noted Date Diagnosed Date Atrial fibrillation, unspecified type 12/04/2023 Ischemic colitis 12/04/2023 Family History Medical History Relation Comments Anesthesia [...] on file Legal Sex Female 2:58 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 Gender Identity Not on file Sexual Orientation Straight 03/24/2024 8: 46 PM CDT Last Filed Vital Signs Vital Sign Reading Time Taken Comments Blood Pressure 120/70 03/25/2024 10:16 AM CDT Pulse 61 02/10/2024 5:30 PM CDT Temperature 36.1 C (96.9 F) 02/10/2024 5:30 PM CDT Respiratory Rate 15 02/10/2024 5:30 PM CDT Oxygen Saturation 97% 02/10/2024 5:30 PM CDT Inhaled Oxygen Concentration - - Weight 70.8 kg (156 lb) 03/25/2024 10:16 AM CDT Height 149.9 cm (4' 11) 03/25/2024 10:16 AM CDT Body Mass Index 31.51 03/25/2024 10:16 AM CDT Plan of Treatment Health Maintenance Due Date Last Done Comments ADVANCE CARE PLANNING 1944 ANNUAL REVIEW OF HM ORDERS 1944 DEXA 1944 LIPID 1944 TSH W/FREE T4 REFLEX 1944 HEPATITIS C SCREENING 1962 FALL RISK ASSESSMENT 2009 MEDICARE ANNUAL WELLNESS VISIT 2009 RSV VACCINE (1 - 1-dose 75+ series) 12/06/2019 COVID-19 Vaccine ( season) 2024 05/09/2023, 05/02/2022, 10/23/2021, Additional history exists INFLUENZA VACCINE (#1) 2024 , 04/05/2022, 04/06/2020, Additional history exists BMP 02/09/2025 02/10/2024, 01/13/2024 GLUCOSE 02/09/2027 02/10/2024, 01/13/2024 DTAP/TDAP/TD IMMUNIZATION (2 - Td or Tdap) 01/24/2030 01/25/2020, 09/27/2010, 01/07/2008, Additional history exists ZOSTER IMMUNIZATION Completed 04/11/2021, 01/31/2021, 11/19/2006 Pneumococcal Vaccine: 50+ Years Completed 04/03/2023, 06/08/2014, 03/22/2010 PHQ-2 (once [...] this topic Medical Devices Implanted Type Area Stitch Burnisher Device Identifier Shelf Expiration Date Model / Serial / Lot Mesh Sling Upsylon Y-Mesh [id number] - [id number] Implanted:Qty : 1 on 02/10/2024 by Grant Gray MD at [facility] Mesh N/A: [employer] [place] [id number] 10/19/2026 [id number] / / [id number] Procedures Procedure Name Priority Date/Time Associated Diagnosis Comments BASIC METABOLIC PANEL STAT 02/10/2024 4:58 PM CDT from Last 3 Months or Most Recently Relevant to Health Maintenance Results * (ABNORMAL) Basic metabolic panel (02/10/2024 [...] 5:36 PM CDT LABORATORY Comment:eGFR calculated usin g 2020 CKD-EPI equation. Calcium 9.0 8.8 - [...] CDT Grant Gray MD LAB - BLOOD ORDERABLES Final R esult LABORATORY [facility] [address] 1[address] floor, [address] [place] [address], [facility] [phone] from Last 3 Months or Most Recently Relevant to Health Maintenance Insurance [facility] [employer] [place] [place] BLUE MEDICARE BS [employer] [place]UE MEDICARE Care Teams Amortization Schedule Clerk Relationship Specialty Start Date End Date [facility]- [address] [place] [address] PCP - General 02/10/24 Tierra Musa MD [address] [address] Physician advertising analyst 11/25/23 France Martinez MD [facility] [address] [place] [address] advertising analyst 11/25/23 Bridgett Garcia PA-C [address] [place], [place] [address] Physician Pull Tab Dealer Anesthesiology 12/05/23 Grant Gray MD [address] [place], [place] [address] advertising analyst 12/05/23 Grant Gray MD [address] [place], [place] [address] Assigned OBGYN Provider 12/12/23
--- OUTSIDE RECORDS SUMMARY | 2024-07-25 20:28 | XMS_ITS | Encounter Summary ---
Author Organization [place] Address [address] [facility] [place] [address] Care Team Providers Care Service Control Operator Name Role Phone Tierra Musa MD Unavailable [phone] France Martinez MD Unavailable [phone] Ref-Primary, Physician Primary Care Provider Bridgett Garcia PA-C Unavailable [phone] Grant Gray MD Unavailable [phone] Grant Gray MD Unavailable [phone] [facility]- Primary Care Provider Encounter Details Date Type Department Care Team (Late st Contact Info) Description 2023 [facility] Medical Advice [facility] [address] 3rd [address] [place] [facility] [address] [place] [phone] Merissa Yeboah CMA Social History Tobacco Use Types Packs/Day Years Used Date Smoking Tobacco: Never Assessed Adolescent Education Answer Date Record ed Getting School Help Needed Not on file 04/27 Comments Unknown Sex and Gender Information Value Date Recorded Sex Assigned at Not on file Legal Sex Female 2:58 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 Gender Identity Not on file Sexual Orientation Straight 03/24/2024 8: 46 PM CDT documented as of this encounter Plan of Treatment Not on file documented as of this encounter Visit Diagnoses Not on filedocumented in this encounter Care Teams Service Control Operator Relationship Specialty Start Date End Date No Ref-Primary, Physician PCP - General 11/25/23 02/09/24 [facility]- [address] [place] [address] PCP - General 02/10/24 Tierra Musa MD [address] [address] Physician landfill attendant 11/25/23 France Martinez MD [facility] [address] [place] [address] landfill attendant 11/25/23 Bridgett Garcia, DALTONC [address] [place] [address] Physician Media Supervisor Anesthesiology 12/05/23 Grant Gray MD [address] [place] [address] landfill attendant 12/05/23 Grant Gray MD [address] [place] [address] Assigned OBGYN Provider 12/12/23 documented as of this encounter
--- OUTSIDE RECORDS SUMMARY | 2024-07-25 20:28 | XMS_ITS | Referral Summary ---
Author Organization [place] Address [address] [facility] 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 Gender Identity Not on file Sexual Orientation [...] 03/25/2024 10:16 AM CDT Plan of Treatment Not on file Medical Devices Implanted Type Area Linotype Machinist Device Identifier Shelf Expiration Date Model / Serial / Lot Mesh Sling Upsylon Y-Mesh [id number] - [id number] Implanted:Qty : 1 on 02/10/2024 by Grnat Gray MD at [facility] Mesh N/A: [employer] [id number] 10/19/2026 [id number] / / [id number] Procedures Procedure Name Priority Date/Time Associated Diagnosis [...] 4:58 PM CDT 02/10/2024 5:00 PM CDT us Grant Gray MD LAB - BLOOD ORDERABLES Final R esult LABORATORY [facility] Acute Care Lab [address] floor, [address] [place] [address], [facility] [phone] from Last 3 Months or Most Recently Relevant to Health Maintenance Insurance [facility] MEDICARE BC CIRCLE BLY MEDICARE Care Teams Farm Management Supervisor Relationship Specialty Start Date End Date [facility]- [address] [place] [address] PCP - General 02/10/24 Tierra Musa MD [address] [address] Physician table top tile setter 11/25/23 France Martinez MD [facility] [address] [place] [address] table top tile setter 11/25/23 Bridgett Garcia PA-C [address] [place] [address] Physician Nautical Instrument Mechanic Anesthesiology 12/05/23 Grant Gray MD [address] [place] [address] MD table top tile setter 12/05/23 Grant Gray MD [address] [place] [address] Assigned OBGYN Provider 12/12/23
--- OUTSIDE RECORDS SUMMARY | 2024-07-25 20:28 | XMS_ITS | Encounter Summary ---
Author Organization [place] Address [address] [facility] [place] [address] Care Team Providers Care Supercharge Repair Supervisor Name Role Phone Tierra Musa MD Unavailable [phone] France Martinez MD Unavailable [phone] Ref-Primary, Physician Primary Care Provider Bridgett Garcia PA-C Unavailable [phone] Grant Gray MD Unavailable [phone] Grant Gray MD Unavailable [phone] [facility]- Primary Care Provider Encounter Details Date Type Department Care Team (Late st Contact Info) Description 2023 MyC Medical Advice [facility] [address], [address] [place] [address] Grant Gray MD [address] [place] [address] Social History Tobacco Use Types Packs/Day Years Used Date Smoking Tobacco: Never Assessed Adolescent Education Answer Date Record ed Getting School Help Needed Not on file 04/27 Comments Unknown Sex and Gender Information Value Date Recorded Sex Assigned at Not on file Legal Sex Female 2:58 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 Gender Identity Not on file Sexual Orientation Straight 03/24/2024 8: 46 PM CDT documented as of this encounter Plan of Treatment Not on file documented as of this encounter Visit Diagnoses Not on filedocumented in this encounter Care Teams Supercharge Repair Supervisor Relationship Specialty Start Date End Date No Ref-Primary, Physician PCP - General 11/25/23 02/09/24 [facility]- [address] [place] [address] PCP - General 02/10/24 Tierra Musa MD [address] [place] [address] Physician operation specialist 11/25/23 France Martinez MD [facility] [address] [place] [address] operation specialist 11/25/23 Bridgett Garcia PA-C [address] [place], [place] [address] Physician Ring Packer Anesthesiology 12/05/23 Grant Gray MD [address] [place] [address] operation specialist 12/05/23 Grant Gray MD [address] [place] [address] Assigned OBGYN Provider 12/12/23 documented as of this encounter
--- OUTSIDE RECORDS SUMMARY | 2024-07-25 20:28 | XMS_ITS | Encounter Summary ---
Author Organization [place] Address [address] [facility] [place] [address] Care Team Providers Care Solar System Installer Name Role Phone Tierra Musa MD Unavailable [phone] France Martinez MD Unavailable [phone] Ref-Primary, Physician Primary Care Provider Bridgett Garcia PA-C Unavailable [phone] Grant Gray MD Unavailable [phone] Grant Gray MD Unavailable [phone] [employer]- Primary Care Provider Encounter Details Date Type Department Care Team (Late st Contact Info) Description 01/22/2024 MyC Medical Advice [facility] [address], [address] [place] [address] Grant Gray MD [address] [place] [address] Social History Tobacco Use Types [...] on file 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 Gender Identity Not on file Sexual Orientation Straight 03/24/2024 8: 46 PM CDT documented as of this encounter Plan of Treatment Not on file documented as of this encounter Visit Diagnoses Not on filedocumented in this encounter Care Teams Solar System Installer Relationship Specialty Start Date End Date No Ref-Primary, Physician PCP - General 11/25/23 02/09/24 [facility]- [address] [place] [address] PCP - General 02/10/24 Tierra Musa MD [address] [address] Physician rotary soil stabilizer operator 11/25/23 France Martinez MD [address] [address] rotary soil stabilizer operator 11/25/23 Bridgett Garcia PA-C [address] [place] [address] Physician Brewery Cellar Worker Anesthesiology 12/05/23 Grant Gray MD [address] [place] [address] rotary soil stabilizer operator 12/05/23 Grant Gray MD [address] [place] [address] Assigned OBGYN Provider 12/12/23 documented as of this encounter
--- OUTSIDE RECORDS SUMMARY | 2024-07-25 20:28 | XMS_ITS | Encounter Summary ---
Author Organization [place] Address [address] [facility] [place] [address] Care Team Providers Care Recreational Director Name Role Phone Tierra Musa MD Unavailable [phone] France Martinez MD Unavailable [phone] No Ref-Primary, Physician Primary Care Provider Bridgett Garcia PA-C Unavailable [phone] Grant Gray MD Unavailable [phone] Grant Gray MD Unavailable [phone] [facility]- Primary Care Provider Encounter Details Date Type Department Care Team (Late st Contact Info) Description 12/06/2023 MyC Medical Advice [facility] [address], [address] [place] [address] Grant Gray MD [address] [place] [address] Social History Tobacco Use Types Packs/Day Years Used Date Smoking Tobacco: Never Assessed Adolescent Education Answer Date Record ed Getting School Help Needed Not on file 04/27 Comments Unknown Sex and Gender Information Value Date Recorded Sex Assigned at Not on file Legal Sex Female 2:58 AM 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 TO DELIVERY SUPERVISOR Gender Identity Not on file Sexual Orientation Straight 03/24/2024 8: 46 PM CDT documented as of this encounter Plan of Treatment Not on file documented as of this encounter Visit Diagnoses Not on filedocumented in this encounter Care Teams Recreational Director Relationship Specialty Start Date End Date No Ref-Primary, Physician PCP - General 11/25/23 02/09/24 [facility]- [address] [place] [address] PCP - General 02/10/24 Tierra Musa MD [address] [place] [address] Physician manager purchasing 11/25/23 France Martinez MD [facility] [address] [place] [address] manager purchasing 11/25/23 Bridgett Garcia PA-C [address] [place], [place] [address] Physician Sole Scraper Anesthesiology 12/05/23 Grant Gray MD [address] [place] [address] manager purchasing 12/05/23 Grant Gray MD [address] [place] [address] Assigned OBGYN Provider 12/12/23 documented as of this encounter
--- OUTSIDE RECORDS SUMMARY | 2024-07-25 20:28 | XMS_ITS | Encounter Summary ---
Author Organization [facility] Address [address] [facility] [place] [address] Care Team Providers Care Grocery Store Associate Name Role Phone Tierra Musa MD Unavailable [phone] France Martinez MD Unavailable [phone] No Ref-Primary, Physician Primary Care Provider Bridgett Garcia PA-C Unavailable [phone] Grant Gray MD Unavailable [phone] Grant Gray MD Unavailable [phone] [facility]- Primary Care Provider Reason for Visit * Reason Onset Date Comments Appointment 01/20/2024 Encounter Details Date Type Department Care Team (Late st Contact Info) Description 01/20/2024 Telephone [facility] [address], [address] [place] [address] Grant Gray MD [address] [place] [address] Appointment Social History Tobacco Use [...] on file Legal Sex Female 2:58 AM [employer] STICK[employer] Gender Identity Not on file Sexual Orientation Straight 03/24/2024 8: 46 PM CDT documented as of this encounter Miscellaneous Notes * Telephone Encounter - Jaelyn Swift - 01/20/2024 12:13 PM CDT [facility] Call Center Phone Message May a detailed message be left on voicemail: yes Reason for Call: Other: Patient called in regarding scheduling 6 week post op appointment. Per protocols junior underwriter is unable to schedule post op appointments. Please reach out to patient regarding post op appointment. Action Taken: Other: Urology Travel Screening: Not Applicable documented in this encounter Plan of Treatment Not on file documented as of this encounter Visit Diagnoses Not on filedocumented in this encounter Care Teams Grocery Store Associate Relationship Specialty Start Date End Date No Ref-Primary, Physician PCP - General 11/25/23 02/09/24 [facility]- [address] [place] [address] PCP - General 02/10/24 Tierra Musa MD [address] [facility] [address] [address] Physician bushwalking guide 11/25/23 France Martinez MD [facility] [address] [place] [address] bushwalking guide 11/25/23 Bridgett Garcia PA-C [address] [place] [address] Physician Manager Regional Anesthesiology 12/05/23 Grant Gray MD [address] [place] [address] bushwalking guide 12/05/23 Grant Gray MD [address] [place] [address] Assigned OBGYN Provider 12/12/23 documented as of this encounter
--- OUTSIDE RECORDS SUMMARY | 2024-07-25 20:28 | XMS_ITS | Continuity of Care Document ---
Author Name NwGORDON User [email or web address] Address Unknown Organization Unknown Address Unknown Procedures FILTER APPLIED:Only known Procedures with Onset Date within the last 5 years Procedure Date Procedure Provider Additiona l Information Status GA CYSTOURETHROSCOPY (90250) Completed GA LAPAROSCOPY, SURGICAL, COLPOPEXY (62331) Completed URINE CULTURE/COLONY COUNT (80393) Completed MICROBE SUSCEPTIBLE CRISTOBAL (88757) Completed URINE CULTURE/COLONY COUNT (74581) Completed URINE CULTURE/COLONY COUNT (41801) Completed MICROBE SUSCEPTIBLE CRISTOBAL (46630) Completed SELF CARE MNGMENT TRAINING (45280) Completed PT RE-EVAL EST PLAN CARE (58328) Completed MANUAL THERAPY 1/> REGIONS (52517) Completed ROUTINE VENIPUNCTURE (43841) Completed ASSAY OF CREATININE (04482) Completed ASSAY OF SERUM POTASSIUM (49223) Completed GAIT TRAINING THERAPY (98009) Completed COMPLETE CBC W/AUTO DIFF WBC (85690) Completed OT EVAL LOW COMPLEX 30 MIN (24655) Completed SELF CARE MNGMENT TRAINING (65749) Completed ASSAY OF SERUM SODIUM (93433) Completed ASSAY OF UREA NITROGEN (26193) Completed ARTHRP KNE CONDYLEANDPLATU MEDIALANDLAT COMPARTMENTS (25728) Completed ANES PT EXTEME AGE<1 YR >70 (38088) Completed ECHO GUIDE FOR BIOPSY (65571) Completed ANESTH KNEE ARTHROPLASTY (34300) Completed X-RAY EXAM OF KNEE 1 OR 2 (32643) Completed PT EVAL MOD COMPLEX 30 MIN (11368) Completed THERAPEUTIC ACTIVITIES (22080) Completed THERAPEUTIC EXERCISES (02405) Completed THERAPEUTIC EXERCISES (88516) Completed PT EVAL LOW COMPLEX 20 MIN (60572) Completed Encounters FILTER APPLIED:Only known Encounters with Admission Date within the last 5 years Encounter Location Admission Discharge Billing Code 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
--- NOTE | 2024-07-25 20:37 | ED_ITS ---
HPI - Chest Pain General Time Seen by Provider: 20:38 Date Seen: 07/25/24 Chief Complaint: Chest Pain Stated Complaint: Chest Pains Time Seen by Provider: 07/25/24 20:42 Source: patient Mode of arrival: ambulatory Limitations: no limitations History of Present Illness HPI narrative: Antonietta is a very pleasant 78-year-old female with a history of hypertension, hypothyroidism who comes to the emergency room for evaluation regarding chest pain. Antonietta had the onset of some chest discomfort located beneath her left breast at approximately 1800 hours. She and her had just finished putting some puzzles together. She was sitting when this occurred. It would coming go but is present at this time. She notes that she had not taken her blood pressure for quite some time and decided to do so at home at which time the top number was 185. She notes that she took subsequent readings but they always seem to be higher. She is not short of breath nor she nauseated with this chest discomfort. It does not radiate into her back. She has not had any recent trauma falls and has no history of DVT. No past history of heart problems. Risk factors include hyperlipidemia, hypertension, age. Patient did not note that her chest pain worsened with activities such as coming into the emergency room. Related Data Home Medications ?Medication ?Instructions ?Recorded ?Confirmed aspirin 81 mg tablet,delayed 81 mg PO MOWEFR 02/02/22 07/25/24 release calcium 600 mg (as 1 tab PO DAILY 02/02/22 07/25/24 carbonate)-vitamin D3 10 mcg (400 unit) tablet magnesium 250 mg tablet 250 mg PO DAILY 02/02/22 07/25/24 multivitamin (Daily Multi-Vitamin 1 tab PO DAILY 02/02/22 07/25/24 tablet) flaxseed oil 1,000 mg capsule 1,200 mg PO DAILY 07/09/23 07/25/24 Previous Rx's ?Medication ?Instructions ?Recorded acetaminophen 500 mg capsule 500 - 1,000 mg (1 - 2 x 500 mg) PO 08/14/23 Q6H PRN #100 caps miscellaneous medical supply #1 ea 08/23/23 estradiol 0.01% (0.1 mg/gram) 0.5 g vaginal QDAY #42.5 grams 11/05/23 vaginal cream atorvastatin 10 mg tablet 10 mg PO QPM #90 tabs 02/28/24 levothyroxine 88 mcg tablet 88 mcg PO DAILY #90 tabs 02/28/24 losartan 100 mg tablet 100 mg PO DAILY #90 tabs 02/28/24 metoprolol succinate 25 mg 25 mg PO DAILY #90 tabs 02/28/24 tablet,extended release 24 hr omeprazole 40 mg capsule,delayed 40 mg PO DAILY #90 caps 02/28/24 release diltiazem HCl 360 mg capsule,24 360 mg PO HS #90 caps 03/04/24 hr,extended release furosemide 40 mg tablet 40 mg PO DAILY #90 tabs 04/28/24 Allergies Allergy/AdvReac Type Severity Reaction Status Date / Time codeine Allergy Severe nausea, Verified 02/28/24 14:43 vomiting amlodipine Allergy Unknown Verified 02/28/24 14:43 doxazosin Allergy Unknown Verified 02/28/24 14:43 hydrochlorothiazide Allergy Unknown Verified 02/28/24 14:43 latex Allergy Unknown Verified 02/28/24 14:43 Review of Systems Status of ROS Reports: 10 or more systems reviewed and unremarkable except as noted in History and below Const Denies: fever or chills Eyes Denies: change in vision ENMT Denies: throat pain, neck pain, difficulty swallowing or nasal congestion Cardio Reports: chest pain and swelling of feet/ankles; Denies: palpitations, lightheadedness or shortness of breath with exertion Resp Denies: shortness of breath or cough GI Denies: abdominal pain, nausea, vomiting or difficulty swallowing Musculo Denies: back pain, neck pain or extremity pain PFSH PFS Medical History Rectocele ?N81.6 - Rectocele (ICD-10) Cystocele Vaginal vault prolapse after hysterectomy ?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.3 - Prolapse of vaginal vault after hysterectomy (ICD-10) Hiatal hernia (03/22/10) ?K44.9 - Diaphragmatic hernia without obstruction or gangrene (ICD-10) Ischemic colitis ?K55.9 - Vascular disorder of intestine, unspecified (ICD-10) Fracture of proximal end of humerus ?S42.209A - Unspecified fracture of upper end of unspecified humerus, initial encounter for closed fracture (ICD-10) Surgical History Status post anterior colporrhaphy ?Z98.890 - Other specified postprocedural states (ICD-10) S/P total knee arthroplasty (08/14/23) ?Z96.659 - Presence of unspecified artificial knee joint (ICD-10) Hx of tonsillectomy ?Z90.89 - Acquired absence of other organs (ICD-10) H/O cataract removal with insertion of prosthetic lens ?Z98.49 - Cataract extraction status, unspecified eye (ICD-10) ?Z96.1 - Presence of intraocular lens (ICD-10) History of total hysterectomy with bilateral salpingo-oophorectomy (BSO) ?Z90.710 - Acquired absence of both cervix and uterus (ICD-10) ?Z90.722 - Acquired absence of ovaries, bilateral (ICD-10) ?Z90.79 - Acquired absence of other genital organ(s) (ICD-10) Trigger thumb, right thumb (01/28/07) ?M65.311 - Trigger thumb, right thumb (ICD-10) S/P right knee arthroscopy (10/21/07) ?Z98.890 - Other specified postprocedural states (ICD-10) Trigger thumb, left thumb (07/13/08) ?M65.312 - Trigger thumb, left thumb (ICD-10) S/P total left hip arthroplasty (01/01/02) ?Z96.642 - Presence of left artificial hip joint (ICD-10) S/P total right hip arthroplasty (09/28/08) ?Z96.641 - Presence of right artificial hip joint (ICD-10) History of arthroscopy of right shoulder (04/10/11) ?Z98.890 - Other specified postprocedural states (ICD-10) Status post cholecystectomy ?Z90.49 - Acquired absence of other specified parts of digestive tract (ICD- 10) Status post carpal tunnel release of both wrists ?Z98.890 - Other specified postprocedural states (ICD-10) History of bladder repair surgery ?Z98.890 - Other specified postprocedural states (ICD-10) History of arthroscopy of left shoulder (12/02/07) ?Z98.890 - Other specified postprocedural states (ICD-10) Family History Father Heart valve replaced Alzheimers disease Mother High blood pressure Social History Narrative: -Elia. 2 adult children. Retired. Never smoker. Denies EtOH or recreational drugs. What is your current living situation?: I presently have a place to live Problems where you live: no known problems In the past 12 months, utilities in danger of being shut off: no In past 12 months, lack of transportation kept you from medical appts, meetings, work, or getting things needed for daily living: no In the past 12 mos, have been you worried that your food would run out before you had money to buy more?: never true In the past 12 mos, the food you bought just didn't last and you didn't have money to buy more?: never true Highest level of school completed/degree received: some college, no degree Smoking Status: Never smoker Do you use any of these nicotine containing products: None Second hand tobacco smoke exposure: No How often do you have a drink containing alcohol: never How often do you have six or more drinks on one occasion: Never AUDIT-C Alcohol total score: 0 Non-prescribed substance use: denies use Caffeine: Yes (2 cups) How often does anyone, including family, friends and others, physically hurt you : never How often does anyone, including family, friends and others, insult or talk down to you: never How often does anyone, including family, friends and others, threaten you with harm: never How often does anyone, including family, friends and others, scream or curse at you: never service: No Exam Narrative Exam Narrative: Alert and oriented. GCS of 15 with appropriate mentation. External eyes nose ears clear. Head is atraumatic. Heart with a regular rate and rhythm. Lungs are clear bilaterally. Abdomen is soft nontender. No pain with palpation epigastrium. No pain with palpation over left anterior chest wall. Lower extremities with 1+ peripheral edema. Moving all extremities. Const Vital Signs, click to edit/add: Vital Signs - 24 hr 07/25/24 20:32 07/25/24 20:38 07/25/24 20:40 Temperature 98.1 F Pulse Rate Pulse Rate [Pulse Oximeter] 82 Respiratory Rate 16 Blood Pressure Blood Pressure [Left Upper Arm] 201/63 H Pulse Oximetry 99 99 98 Oxygen Delivery Method Room Air 07/25/24 20:45 07/25/24 20:50 07/25/24 20:55 Temperature Pulse Rate 70 65 70 Pulse Rate [Pulse Oximeter] Respiratory Rate Blood Pressure 183/81 H 144/78 H Blood Pressure [Left Upper Arm] Pulse Oximetry 99 96 96 Oxygen Delivery Method Documenting provider has reviewed patient's vital signs: yes Course Course ED Course: Differential diagnosis includes but is not limited to acute coronary event, pneumothorax, pleurisy, chest wall pain, anxiety, GERD, viral illness. IV has been placed. 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 EKG by my read shows sinus rhythm at a rate of 73. There is an incomplete right bundle-branch block. Questionable evidence of an old inferior infarct. QT and NC intervals within normal limits. Given history of hypothyroidism will also check TSH. Reevaluation(s) Reevaluation #1: Patient noted to have a negative troponin. She is still experiencing some discomfort in the left anterior chest. She is receptive to Toradol and will also give some Maalox as she does have a history of GERD. Reevaluation #2: Patient has had complete resolution of her discomfort. Reassuring laboratory values at this time with a negative troponin normal white count normal hemoglobin and electrolyte panel. TSH was elevated but free T4 is within normal limits. COVID influenza and RSV negative. Awaiting 2nd troponin at approximately midnight. Vital Signs Vital signs: Initial Vital Signs Temperature 98.1 F 07/25/24 20:32 Temperature Source Temporal Artery Scan 07/25/24 20:32 Pulse Rate 82 07/25/24 20:32 Respiratory Rate 16 07/25/24 20:32 Blood Pressure 201/63 H 07/25/24 20:32 Blood Pressure Mean 109 H 07/25/24 20:32 Blood Pressure Position Sitting 07/25/24 20:32 Pulse Oximetry 99 07/25/24 20:32 Oxygen Delivery Method Room Air 07/25/24 20:32 Vital Signs Temperature 98.1 F 07/25/24 20:32 Pulse Rate 82 07/25/24 20:32 Respiratory Rate 16 07/25/24 20:32 Blood Pressure 201/63 H 07/25/24 20:32 Pulse Oximetry 99 07/25/24 20:32 Oxygen Delivery Method Room Air 07/25/24 20:32 Temperature 98.1 F 07/25/24 20:32 Pulse Rate 70 07/25/24 20:55 Respiratory Rate 16 07/25/24 20:32 Blood Pressure 144/78 H 07/25/24 20:55 Pulse Oximetry 96 07/25/24 20:55 Oxygen Delivery Method Room Air 07/25/24 20:32 Medications Administered Medications: Discontinued Medications Generic Name Dose Route Start Last Admin Trade Name Freq PRN Reason Stop Dose Admin Ketorolac Tromethamine 15 mg 07/25/24 21:14 07/25/24 21:29 Ketorolac 15 Mg/Ml Inj IVP 07/25/24 21:15 15 mg ONCE ONE Administration Lidocaine/Aluminum/Magnesium/Simeth 15 ml 07/25/24 21:16 07/25/24 21:26 Mag Hydrox/Aluminum Hyd/Simeth 30 Ml Oral.Susp PO 07/25/24 21:17 15 ml ONCE ONE Administration Nitroglycerin 0.4 mg 07/25/24 20:47 07/25/24 21:28 Nitroglycerin 0.4 Mg Tab.Subl SUBLINGUAL 07/25/24 20:48 0.4 mg ONCE ONE Administration MDM - Chest Pain MDM Narrative Medical decision making narrative: 1. Atypical chest pain-EKG unchanged. Initial point of care troponin 0.00 and subsequent troponin 0.04. While technically within normal limits this was concerning and a lab backup for the 2nd troponin yielded the same value at 0.04. Plans were to talk to Cardiology given the elevation over a 5-1/2 hour. However, we were able to do a lab troponin I with the initial blood draw at 2035 at which time troponin was 0.04. Therefore, there was no change in troponin levels. Further, 2nd troponin was done nearing a 6 hour tam after the onset of discomfort. Given no changing troponins, reassuring EKG, patient will be departed home. Nitroglycerin did not change patient's pain but did bring blood pressure down. Toradol and Maalox were given with complete resolution of disc omfort and the pain did not return. Therefore it does appear that the discomfort was more likely musculoskeletal verses GERD related than cardiac related. Will have patient resume aspirin daily as she has been doing aspirin 3 times a week. Would ask that she follow-up for stress test with her primary MD. 2. Abnormal TSH-normal free T4. 3. Hypertension-improved in the ED. Patient currently on diltiazem, Lasix, losartan and metoprolol. Would have her monitor her blood pressure tomorrow and follow-up with primary MD for worsening symptoms. 3. Disposition-home at this time. Follow-up with primary clinic or MD for scheduling a stress test. Return/seek medical attention for worsening symptoms. Medical Records Data Attestation: I reviewed the patient's medical records. Lab Data Attestation: I reviewed the patient's lab results. Labs: Lab Results 07/25/24 07/25/24 07/25/24 Range/Units 20:36 20:37 20:37 WBC 10.22 (4.50-11.00) K/uL RBC 4.51 (4.00-5.20) m/uL Hgb 13.6 (12.0-16.0) gm/dL Hct 40.4 (33.0-51.0) % MCV 90 (80-100) fL MCH 30 (26-34) pg MCHC 34 (32-36) gm/dL RDW Coeff of Fide 13.2 (11.5-15.5) % Plt Count 271 (140-440) K/uL Neut % (Auto) 43.8 (42.0-72.0) % Lymph % (Auto) 42.6 (20-44) % Dixon % (Auto) 10.2 (0.0-11.0) % Eos % (Auto) 3.1 (0.0-7.0) % Baso % (Auto) 0.2 (0.0-3.0) % Neut # (Auto) 4.48 (1.7-7.0) K/uL Lymph # (Auto) 4.35 H (0.90-2.90) K/uL Dixon # (Auto) 1.00 H (0.00-0.90) K/UL Eos # (Auto) 0.32 (0.00-0.50) K/uL Baso # (Auto) 0.02 (0.00-0.30) K/uL Abs Immat Gran (auto) 0.01 (0.00-0.30) K/uL Imm/Tot Granulo (auto) 0.1 % Sodium 135 (135-149) mmol/L Potassium 3.6 (3.6-5.1) mmol/L Chloride 102 (96-114) mmol/L Carbon Dioxide 23 (20-32) mmol/L Anion Gap 10 (7-15) mEq/L BUN 17 (7-30) mg/dL Creatinine 0.9 (0.5-1.5) mg/dL Estimated Creat Clear 49.00 Estimated GFR 65 ml/min Glucose 106 (60-115) mg/dL Calcium 8.9 (8.4-10.6) mg/dL Magnesium 2.3 Cancelled (1.5-2.6) mg/dL Total Bilirubin 0.4 (0.1-1.5) mg/dL AST 34 (12-35) U/L ALT 18 (4-35) U/L Alkaline Phosphatase 110 (40-150) U/L Troponin I (0.01-0.04) ng/mL NT-Pro-B Natriuret Pep 265 pg/mL Total Protein 7.6 (6.0-8.3) g/dL Albumin 4.6 (3.3-5.0) g/dL TSH 6.550 H (0.270-4.200) uIU/mL Free T4 1.39 (0.70-1.85) ng/dL SARS-CoV-2 (PCR) (Negative) Influenza Type A (PCR) (Negative) Influenza Type B (PCR) (Negative) RSV (PCR) (Negative) Lab Acknowledgement POC Troponin I 0.00 L (0.01-0.04) ng/ml 07/25/24 07/25/24 07/25/24 Range/Units 20:38 20:50 23:36 WBC (4.50-11.00) K/uL RBC (4.00-5.20) m/uL Hgb (12.0-16.0) gm/dL Hct (33.0-51.0) % MCV (80-100) fL MCH (26-34) pg MCHC (32-36) gm/dL RDW Coeff of Fide (11.5-15.5) % Plt Count (140-440) K/uL Neut % (Auto) (42.0-72.0) % Lymph % (Auto) (20-44) % Dixon % (Auto) (0.0-11.0) % Eos % (Auto) (0.0-7.0) % Baso % (Auto) (0.0-3.0) % Neut # (Auto) (1.7-7.0) K/uL Lymph # (Auto) (0.90-2.90) K/uL Dixon # (Auto) (0.00-0.90) K/UL Eos # (Auto) (0.00-0.50) K/uL Baso # (Auto) (0.00-0.30) K/uL Abs Immat Gran (auto) (0.00-0.30) K/uL Imm/Tot Granulo (auto) % Sodium (135-149) mmol/L Potassium (3.6-5.1) mmol/L Chloride (96-114) mmol/L Carbon Dioxide (20-32) mmol/L Anion Gap (7-15) mEq/L BUN (7-30) mg/dL Creatinine (0.5-1.5) mg/dL Estimated Creat Clear Estimated GFR ml/min Glucose (60-115) mg/dL Calcium (8.4-10.6) mg/dL Magnesium (1.5-2.6) mg/dL Total Bilirubin (0.1-1.5) mg/dL AST (12-35) U/L ALT (4-35) U/L Alkaline Phosphatase (40-150) U/L Troponin I 0.04 (0.01-0.04) ng/mL NT-Pro-B Natriuret Pep pg/mL Total Protein (6.0-8.3) g/dL Albumin (3.3-5.0) g/dL TSH (0.270-4.200) uIU/mL Free T4 (0.70-1.85) ng/dL SARS-CoV-2 (PCR) Negative SARS-CoV-2 (Negative) Influenza Type A (PCR) Negative PCR FLU A (Negative) Influenza Type B (PCR) Negative PCR FLU B (Negative) RSV (PCR) Negative PCR RSV (Negative) Lab Acknowledgement POC Troponin I 0.04 (0.01-0.04) ng/ml 07/25/24 07/26/24 Range/Units 23:55 01:09 WBC (4.50-11.00) K/uL RBC (4.00-5.20) m/uL Hgb (12.0-16.0) gm/dL Hct (33.0-51.0) % MCV (80-100) fL MCH (26-34) pg MCHC (32-36) gm/dL RDW Coeff of Fide (11.5-15.5) % Plt Count (140-440) K/uL Neut % (Auto) (42.0-72.0) % Lymph % (Auto) (20-44) % Dixon % (Auto) (0.0-11.0) % Eos % (Auto) (0.0-7.0) % Baso % (Auto) (0.0-3.0) % Neut # (Auto) (1.7-7.0) K/uL Lymph # (Auto) (0.90-2.90) K/uL Dixon # (Auto) (0.00-0.90) K/UL Eos # (Auto) (0.00-0.50) K/uL Baso # (Auto) (0.00-0.30) K/uL Abs Immat Gran (auto) (0.00-0.30) K/uL Imm/Tot Granulo (auto) % Sodium (135-149) mmol/L Potassium (3.6-5.1) mmol/L Chloride (96-114) mmol/L Carbon Dioxide (20-32) mmol/L Anion Gap (7-15) mEq/L BUN (7-30) mg/dL Creatinine (0.5-1.5) mg/dL Estimated Creat Clear Estimated GFR ml/min Glucose (60-115) mg/dL Calcium (8.4-10.6) mg/dL Magnesium (1.5-2.6) mg/dL Total Bilirubin (0.1-1.5) mg/dL AST (12-35) U/L ALT (4-35) U/L Alkaline Phosphatase (40-150) U/L Troponin I 0.04 (0.01-0.04) ng/mL NT-Pro-B Natriuret Pep pg/mL Total Protein (6.0-8.3) g/dL Albumin (3.3-5.0) g/dL TSH (0.270-4.200) uIU/mL Free T4 (0.70-1.85) ng/dL SARS-CoV-2 (PCR) (Negative) Influenza Type A (PCR) (Negative) Influenza Type B (PCR) (Negative) RSV (PCR) (Negative) Lab Acknowledgement Test Added POC Troponin I (0.01-0.04) ng/ml Imaging Data Chest x-ray: Attestation: I have reviewed the pertinent imaging results. Radiologist's impression: Cardiovascular and mediastinum: Cardiomediastinal silhouette is within normal limits. Calcific atherosclerosis of the aorta. Lungs and pleural spaces: Lungs are clear. No sign of pleural effusion. No pneumothorax. Bones and soft tissues: No significant findings. IMPRESSION: No acute cardiopulmonary process identified. ECG Data Attestation: I personally reviewed and interpreted this ECG as follows: ECG interpretation date: 07/25/24 Prior ECG tracings: available for review Interpretation: EKG by my read shows sinus rhythm at a rate of 73. There is an incomplete right bundle-branch block. Questionable evidence of an old inferior infarct. QT and NC intervals within normal limits. Unchanged from previous EKG July 2023. Discharge Plan Discharge Clinical Impression: Atypical chest pain, Hypertension Patient Disposition: Home, Self-Care Condition: Improved Additional Instructions: Recommend aspirin daily. Please follow-up with your primary MD for stress test scheduling. Limit activity and avoid increased heart rate. Monitor your blood pressure tomorrow. Return to the emergency room for chest pain, worsening symptoms and as needed. Prescriptions: No Action calcium carbonate-vitamin D3 600 mg-10 mcg (400 unit) tablet 1 tab PO DAILY multivitamin [Daily Multi-Vitamin] Tablet 1 tab PO DAILY magnesium 250 mg tablet 250 mg PO DAILY aspirin 81 mg tablet,delayed release (DR/EC) 81 mg PO MOWEFR flaxseed oil 1,000 mg capsule 1,200 mg PO DAILY Rx Instructions: administer with a meal (DME) miscellaneous medical supply Misc See Rx Instructions .Route Qty: 1 0RF Rx Instructions: As directed- knee high will stocking, size Large Reg. E estradiol 0.01 % (0.1 mg/gram) cream 0.5 g vaginal QDAY Qty: 42.5 3RF Rx Instructions: 0.5 g daily for 14 days and then twice weekly atorvastatin 10 mg tablet 10 mg PO QPM Qty: 90 3RF losartan 100 mg tablet 100 mg PO DAILY Qty: 90 3RF levothyroxine 88 mcg tablet 88 mcg PO DAILY Qty: 90 3RF metoprolol succinate 25 mg tablet extended release 24 hr 25 mg PO DAILY Qty: 90 3RF omeprazole 40 mg capsule,delayed release(DR/EC) 40 mg PO DAILY Qty: 90 3RF acetaminophen 500 mg capsule 500 - 1,000 mg PO Q6H MDD 4000mg PRNQty: 100 0RF diltiazem HCl 360 mg capsule,extended release 24 hr 360 mg PO HS Qty: 90 3RF furosemide 40 mg tablet 40 mg PO DAILY Qty: 90 1RF Follow Up/Referrals: Des Kapoor MD [Primary Care Provider] - Stand Alone [facility]: [facility] Inst[facility]
--- NOTE | 2024-07-25 20:47 | CRLHL7_ITS ---
For Patients: As a result of the Cures Act, medical imaging exams and procedure reports are released immediately into your electronic medical record. You may view this report before your referring provider. If you have questions, please contact your health care provider. INDICATION: Left-sided chest pain. TECHNIQUE: Chest 1 views. COMPARISON: None. FINDINGS: Cardiovascular and mediastinum: Cardiomediastinal silhouette is within normal limits. Calcific atherosclerosis of the aorta. Lungs and pleural spaces: Lungs are clear. No sign of pleural effusion. No pneumothorax. Bones and soft tissues: No significant findings. IMPRESSION: No acute cardiopulmonary process identified. Dictated by Demetrice Bowden MD @ 07/25/2024 9:21:14 PM (Electronically Signed)
[2024-07-25 20:54] LABS: Basophils Absolute Auto 0.02 K/uL (0.00-0.30); Basophils Percent Auto 0.2 % (0.0-3.0); Eosinophils Absolute Auto 0.32 K/uL (0.00-0.50); Eosinophils Percent Auto 3.1 % (0.0-7.0); Hematocrit 40.4 % (33.0-51.0); Hemoglobin* 13.6 gm/dL (12.0-16.0); Immature Granulocytes Abs Auto 0.01 K/uL (0.00-0.30); Immature Granulocytes Pct Auto 0.1 %; Lymphocytes Absolute Auto 4.35 K/uL (0.90-2.90); Lymphocytes Percent Auto 42.6 % (20-44); Mean Corpuscular HGB Conc 34 gm/dL (32-36); Mean Corpuscular Hemoglobin 30 pg (26-34); Mean Corpuscular Volume 90 fL (80-100); Monocytes Percent Auto 10.2 % (0.0-11.0); Neutrophils Absolute Auto 4.48 K/uL (1.7-7.0); Neutrophils Percent Auto 43.8 % (42.0-72.0); Platelet Count* 271 K/uL (140-440); RDW Coefficient of Variation % 13.2 % (11.5-15.5); Red Blood Count 4.51 m/uL (4.00-5.20); White Blood Count* 10.22 K/uL (4.50-11.00)
[2024-07-25 20:57] LABS: Slide Review Reflex No
[2024-07-25 21:01] LABS: Albumin* 4.6 g/dL (3.3-5.0); Chloride* 102 mmol/L (96-114); Potassium* 3.6 mmol/L (3.6-5.1); Sodium* 135 mmol/L (135-149)
--- OUTSIDE RECORDS SUMMARY | 2024-07-25 21:02 | XMS_ITS | Referral Summary ---
Author Organization [facility] Address [address] 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, [address] [place] [address], [facility] [phone] from Last 3 Months or Most Recently Relevant to Health Maintenance Insurance [facility] [place] [employer] [place] MED[employer]ARE Care Teams [employer] Relationship Specialty Start Date End Date [facility] [address] [place] [address] PCP - General 02/10/24 Tierra Musa MD [address] [address] Physician file clerk data entry 11/25/23 France Martinez MD [facility] [address] [place] [address] file clerk data entry 11/25/23 Bridgett Garcia PA-C [address] [place] [address] Physician Sales Merchandising Specialist Anesthesiology 12/05/23 Grant Gray MD [address] [place] [address] MD file clerk data entry 12/05/23 Grant Gray MD [address] [place] [address] Assigned OBGYN Provider 12/12/23
--- OUTSIDE RECORDS SUMMARY | 2024-07-25 21:02 | XMS_ITS | Encounter Summary ---
Author Organization [place] Address [address] [place] [address] Care Team Providers Care Data Modeling Architect Name Role Phone Tierra Musa MD Unavailable [phone] France Martinez MD Unavailable [phone] No Ref-Primary, Physician Primary Care Provider Bridgett Garcia PA-C Unavailable [phone] Grant Gray MD Unavailable [phone] Grant Gray MD Unavailable [phone] [facility]- Primary Care Provider Encounter Details Date Type Department Care Team (Late st Contact Info) Description 01/01/2024 MyC Medical Advice 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 Gender Identity Not on file Sexual Orientation Straight 03/24/2024 8: 46 PM CDT documented as of this encounter Plan of Treatment Not on file documented as of this encounter Visit Diagnoses Not on filedocumented in this encounter Care Teams Data Modeling Architect Relationship Specialty Start Date End Date No Ref-Primary, Physician PCP - General 11/25/23 02/09/24 [facility]- [address] [place] [address] PCP - General 02/10/24 Tierra Musa MD [address] [facility] [address] [place] [address] Physician certified registered locksmith 11/25/23 France Martinez MD [facility] [address] [place] [address] certified registered locksmith 11/25/23 Bridgett Garcia PA-C [address] [place], [place] [address] Physician Human Capital Analyst Anesthesiology 12/05/23 Grant Gray MD [address] [place], [place] [address] certified registered locksmith 12/05/23 Grant Gray MD [address] [place], [place] [address] Assigned OBGYN Provider 12/12/23 documented as of this encounter
--- OUTSIDE RECORDS SUMMARY | 2024-07-25 21:02 | XMS_ITS | Continuity of Care Document ---
Author Name NwGORDON User [email or web address] Address Unknown Organization Unknown Address Unknown Procedures FILTER APPLIED:Only known Procedures with Onset Date within the last 5 years Procedure Date Procedure Provider Additiona l Information Status FL CYSTOURETHROSCOPY (97460) Completed [place] LAPAROSCOPY, SURGICAL, COLPOPEXY (20225) Completed URINE CULTURE/COLONY COUNT (20345) Completed MICROBE SUSCEPTIBLE CRISTOBAL (64582) Completed URINE CULTURE/COLONY COUNT (20474) Completed URINE CULTURE/COLONY COUNT (74502) Completed MICROBE SUSCEPTIBLE CRITSOBAL (30106) Completed SELF CARE MNGMENT TRAINING (71452) Completed PT RE-EVAL EST PLAN CARE (54063) Completed MANUAL THERAPY 1/> REGIONS (39417) Completed ROUTINE VENIPUNCTURE (06815) Completed ASSAY OF CREATININE (04347) Completed ASSAY OF SERUM POTASSIUM (20915) Completed GAIT TRAINING THERAPY (28969) Completed COMPLETE CBC W/AUTO DIFF WBC (75982) Completed OT EVAL LOW COMPLEX 30 MIN (95038) Completed SELF CARE MNGMENT TRAINING (45560) Completed ASSAY OF SERUM SODIUM (42075) Completed ASSAY OF UREA NITROGEN (50956) Completed ARTHRP KNE CONDYLEANDPLATU MEDIALANDLAT COMPARTMENTS (33285) Completed ANES PT EXTEME AGE<1 YR >70 (73459) Completed ECHO GUIDE FOR BIOPSY (92416) Completed ANESTH KNEE ARTHROPLASTY (49717) Completed X-RAY EXAM OF KNEE 1 OR 2 (99503) Completed PT EVAL MOD COMPLEX 30 MIN (12723) Completed THERAPEUTIC ACTIVITIES (96643) Completed THERAPEUTIC EXERCISES (03396) Completed THERAPEUTIC EXERCISES (48857) Completed PT EVAL LOW COMPLEX 20 MIN (38465) Completed Encounters FILTER APPLIED:Only known Encounters with Admission Date within the last 5 years Encounter Location Admission Discharge Billing Code Turn Out A hany Outpatient John Campos Outpatient Kristal gallardo Outpatient [facility] Outpatient Nika Mendoza Outpatient Sherry Vanessa Outpatient Prince Martinez Outpatient [facility] Outpatient [facility] Out[facility] Outpatient [facility] Outpatient [facility] Outpatient [facility]
--- OUTSIDE RECORDS SUMMARY | 2024-07-25 21:02 | XMS_ITS | Encounter Summary ---
Author Organization [place] Address [address] [facility] [place] [address] Care Team Providers Care Anesthesiologist/Physician Name Role Phone Tierra Musa MD Unavailable [phone] France Martinez MD Unavailable [phone] No Ref-Primary, Physician Primary Care Provider Bridgett Garcia PA-C Unavailable [phone] Grant Gray MD Unavailable [phone] Grant Gray MD Unavailable [phone] [facility]- Primary Care Provider Encounter Details Date Type Department Care Team (Late st Contact Info) Description 12/06/2023 MyC Medical Advice [facility] [address], [address] [place] [address] Grant Gray MD [address] [place] [address] Social History Tobacco Use Types Packs/Day Years Used Date Smoking Tobacco: Never Assessed Adolescent Education Answer Date Record ed Getting School Help Needed Not on file 04/27 Comments Unknown Sex and Gender Information Value Date Recorded Sex Assigned at Not on file 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 Gender Identity Not on file Sexual Orientation Straight 03/24/2024 8: 46 PM CDT documented as of this encounter Plan of Treatment Not on file documented as of this encounter Visit Diagnoses Not on filedocumented in this encounter Care Teams Anesthesiologist/Physician Relationship Specialty Start Date End Date No Ref-Primary, Physician PCP - General 11/25/23 02/09/24 [facility]- [address] [place] [address] PCP - General 02/10/24 Tierra Musa MD [address] [place] [address] Physician drilling and production superintendent 11/25/23 France Martinez MD [facility] [address] [place] [address] drilling and production superintendent 11/25/23 Bridgett Garcia PA-C [address] [place], [place] [address] Physician Exchange Floor Manager Anesthesiology 12/05/23 Grant Gray MD [address] [place] [address] drilling and production superintendent 12/05/23 Grant Gray MD [address] [place] [address] Assigned OBGYN Provider 12/12/23 documented as of this encounter
--- OUTSIDE RECORDS SUMMARY | 2024-07-25 21:02 | XMS_ITS | Clinical Summary ---
Author Organization [facility] Address [place], [place] [address] Care Team Providers Care Senior Assistant Manager Name Role Phone Des Kapoor MD Primary Care Provider [phone] Allergies Active Allergy Reactions Criticality Noted Date [...] Date Resolved Date Infected sebaceous cyst 10/22/200812/20 detention (current) use of anticoagulants 10/04/2008 11/24/2008 Immunizations [...] on file Legal Sex Female 5:20 AM YEAST STACKER Gender Identity Not on file Sexual Orientation Not on file Obstetrics History Last Filed Vital Signs Vital Sign Reading Time Taken Comments Blood Pressure 168/60 09/15/2023 3:58 PM YEAST STACKER Pulse 66 09/15/2023 3:58 PM YEAST STACKER Temperature 36.6 C (97.8 F) 09/15/2023 3:58 PM YEAST STACKER Respiratory Rate 16 09/15/2023 3:58 PM YEAST STACKER Oxygen Saturation 97% 09/15/2023 3:58 PM YEAST STACKER Inhaled Oxygen Concentration - - Weight 72.6 kg (160 lb) 09/15/2023 3:58 PM YEAST STACKER Height 148.6 cm (4' 10.5) 01/08/2013 8:06 [...] 2 SITES AXIAL Routine 06/10/2009 10:50 AM YEAST STACKER Screening for Osteoporosis from Last 3 Months or Most Recently Relevant to Health Maintenance Results * XR DEXA BONE DENSITY 2 SITES (06/10/2009 10:50 AM YEAST STACKER) Anatomical Region Laterality Modality Spine, HIPS, HIPL, HIPR Other 06/10/2009 10:5 0 AM YEAST STACKER Narrative 06/13/2009 2:49 PM YEAST STACKER Please see scanned document for results of this study. Procedure Note Jennifer Lombardo D - 06/21/2009 Please see scanned document for results of this study. us Nicki Sarmiento MD DEXA Final Result from Last 3 Months or Most Recently Relevant to Health Maintenance Insurance MEDICARE PART A HB ONLY MEDICARE PART B HB ONLY BLUE CROSS [employer] BLUE HB ONLY BLUE CROSS MEDICARE ADVANTAGE MR Advance Directives * Full Code (Latest Code Status on File) Date Activated Date Inactivated Comments 01/07/2013 10:25 PM 01/15/2013 5:09 PM Care Teams Senior Assistant Manager Relationship Specialty Start Date End Date Des Kapoor MD PCP - General Family Practice 01/15/13
--- OUTSIDE RECORDS SUMMARY | 2024-07-25 21:02 | XMS_ITS | Encounter Summary ---
Author Organization [place] Address [address] [place] [address] Care Team Providers Care Contact Center Director Name Role Phone Tierra Musa MD Unavailable [phone] Fracne Martinez MD Unavailable [phone] No Ref-Primary, Physician Primary Care Provider Bridgett Garcia PA-C Unavailable [phone] Grant Gray MD Unavailable [phone] Grant Gray MD Unavailable [phone] [facility]- Primary Care Provider Encounter Details Date Type Department Care Team (Late st Contact Info) Description 01/22/2024 MyC Medical Advice [facility] [address], [address] [place] [address] Grant Gray MD [address] [place] [address] Social History Tobacco Use Types [...] on file 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 Gender Identity Not on file Sexual Orientation Straight 03/24/2024 8: 46 PM CDT documented as of this encounter Plan of Treatment Not on file documented as of this encounter Visit Diagnoses Not on filedocumented in this encounter Care Teams Contact Center Director Relationship Specialty Start Date End Date No Ref-Primary, Physician PCP - General 11/25/23 02/09/24 [facility]- [address] [place] [address] PCP - General 02/10/24 Tierra Musa MD [address] [address] Physician foundation drill operator helper 11/25/23 France Martinez MD [address] [address] foundation drill operator helper 11/25/23 Bridgett Garcia PA-C [address] [place] [address] Physician Etcher Apprentice Anesthesiology 12/05/23 Grant Gray MD [address] [place] [address] foundation drill operator helper 12/05/23 Grant Gray MD [address] [place] [address] Assigned OBGYN Provider 12/12/23 documented as of this encounter
--- OUTSIDE RECORDS SUMMARY | 2024-07-25 21:02 | XMS_ITS | Encounter Summary ---
Author Organization [place] Address [address] [facility] [place] [address] Care Team Providers Care Cytometry Technologist Name Role Phone Tierra Musa MD Unavailable [phone] France Martinez MD Unavailable [phone] Ref-Primary, Physician Primary Care Provider Bridgett Garcia PA-C Unavailable [phone] Grant Gray MD Unavailable [phone] Grant Gray MD Unavailable [phone] [facility]- Primary Care Provider Encounter Details Date Type Department Care Team (Late st Contact Info) Description 2023 [facility] Medical Advice [facility] [address] [place] [facility] [address] [place] [id number] Merissa Yeboah CMA Social History Tobacco Use Types Packs/Day Years Used Date Smoking Tobacco: Never Assessed Adolescent Education Answer Date Record ed Getting School Help Needed Not on file 04/27 Comments Unknown Sex and Gender Information Value Date Recorded Sex Assigned at Not on file 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 Female 2:58 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 Gender Identity Not on file Sexual Orientation Straight 03/24/2024 8: 46 PM CDT documented as of this encounter Plan of Treatment Not on file documented as of this encounter Visit Diagnoses Not on filedocumented in this encounter Care Teams Cytometry Technologist Relationship Specialty Start Date End Date No Ref-Primary, Physician PCP - General 11/25/23 02/09/24 [facility]- [address] [place] [address] PCP - General 02/10/24 Tierra Musa MD [address] [address] Physician pharmacist's aide 11/25/23 France Martinez MD [facility] [address] [place] [address] pharmacist's aide 11/25/23 Bridgett Garcia, DALTONC [address] [place] [address] Physician Network Intern Anesthesiology 12/05/23 Grant Gray MD [address] [place] [address] pharmacist's aide 12/05/23 Grant Gray MD [address] [place] [address] Assigned OBGYN Provider 12/12/23 documented as of this encounter
--- OUTSIDE RECORDS SUMMARY | 2024-07-25 21:02 | XMS_ITS | Clinical Summary ---
Author Organization [place] Address [address] [facility] 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 1[address] floor, [address] [place] [address], [facility] [phone] from Last 3 Months or Most Recently Relevant to Health Maintenance Insurance [facility] [place] BLUE MEDICARE BS [place] BLUE MEDICARE Care Teams Measurement Technician Relationship Specialty Start Date End Date [facility]- [address] [place] [address] PCP - General 02/10/24 Tierra Musa MD [address] [address] Physician advertising designer 11/25/23 France Martinez MD [facility] [address] [place] [address] advertising designer 11/25/23 Bridgett Garcia PA-C [address] [place], [place] [address] Physician Vmware Systems Administrator Anesthesiology 12/05/23 Grant Gray MD [address] [place], [place] [address] advertising designer 12/05/23 Grant Gray MD [address] [place], [place] [address] Assigned OBGYN Provider 12/12/23
--- OUTSIDE RECORDS SUMMARY | 2024-07-25 21:02 | XMS_ITS | Encounter Summary ---
Author Organization [place] Address [address] [place] [address] Care Team Providers Care Can Line Examiner Name Role Phone Tierra Musa MD Unavailable [phone] France Martinez MD Unavailable [phone] No Ref-Primary, Physician Primary Care Provider Bridgett Garcia PA-C Unavailable [phone] Grant Gray MD Unavailable [phone] Grant Gray MD Unavailable [phone] [facility]- Primary Care Provider Reason for Visit * Reason Onset Date Comments Appointment 01/20/2024 Encounter Details Date Type Department Care Team (Late st Contact Info) Description 01/20/2024 Telephone [facility] [address], [address] [place] [address] Grant Gray MD [address] [place] [address] Appointment Social History Tobacco Use [...] on file 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 Per protocols inspector automatic typewriter is unable to schedule post op appointments. Please reach out to patient regarding post op appointment. Action Taken: Other: Urology Travel Screening: Not Applicable documented in this encounter Plan of Treatment Not on file documented as of this encounter Visit Diagnoses Not on filedocumented in this encounter Care Teams Can Line Examiner Relationship Specialty Start Date End Date No Ref-Primary, Physician PCP - General 11/25/23 02/09/24 [facility]- [address] [place] [address] PCP - General 02/10/24 Tierra Musa MD [address] [facility] [address] [address] Physician ampoule filler 11/25/23 France Martinez MD [facility] [address] [place] [address] ampoule filler 11/25/23 Bridgett Garcia PA-C [address] [place] [address] Physician Scroll Shear Operator Anesthesiology 12/05/23 Grant Gray MD [address] [place] [address] ampoule filler 12/05/23 Grant Gray MD [address] [place] [address] Assigned OBGYN Provider 12/12/23 documented as of this encounter
--- OUTSIDE RECORDS SUMMARY | 2024-07-25 21:02 | XMS_ITS | Encounter Summary ---
Author Organization [place] Address [address] [facility] [place] [address] Care Team Providers Care Coal Screener Name Role Phone Tierra Musa MD Unavailable [phone] France Martinez MD Unavailable [phone] No Ref-Primary, Physician Primary Care Provider Bridgett Garcia PA-C Unavailable [phone] Grant Gray MD Unavailable [phone] Grant Gray MD Unavailable [phone] 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- [address] [place] [address] PCP - General 02/10/24 Tierra Musa MD [address] [place] [address] Physician senior functional analyst 11/25/23 France Martinez MD [facility] [address] [place] [address] senior functional analyst 11/25/23 Bridgett Garcia PA-C [address] [place], [place] [address] Physician Buttermilk Drier Operator Anesthesiology 12/05/23 Grant Gray MD [address] [place] [address] senior functional analyst 12/05/23 Grant Gray MD [address] [place] [address] Assigned OBGYN Provider 12/12/23 documented as of this encounter
[2024-07-25 21:03] LABS: Anion Gap 10 mEq/L (7-15); Bilirubin Total* 0.4 mg/dL (0.1-1.5); Carbon Dioxide* 23 mmol/L (20-32); Creatinine* 0.9 mg/dL (0.5-1.5); Estimated Glomerular Filt Rate 65 ml/min
[2024-07-25 21:04] LABS: Alanine Aminotransferase* 18 U/L (4-35); Alkaline Phosphatase* 110 U/L (40-150); Aspartate Amino Transferase* 34 U/L (12-35); Blood Urea Nitrogen* 17 mg/dL (7-30); Calcium* 8.9 mg/dL (8.4-10.6); Glucose* 106 mg/dL (60-115); Magnesium* 2.3 mg/dL (1.5-2.6); Total Protein* 7.6 g/dL (6.0-8.3)
[2024-07-25] MEDS: MAG HYDROX/ALUMINUM HYD/SIMETH 30 ML ORAL.SUSP 15 ML PO (21:26)
[2024-07-25] MEDS: NITROGLYCERIN 0.4 MG TAB.SUBL SUBLINGUAL (21:28)
[2024-07-25] MEDS: KETOROLAC 15 MG/ML inj IVP (21:29)
[2024-07-25 21:33] LABS: NT Pro B Type NatriureticPept* 265 pg/mL
[2024-07-25 21:38] LABS: PCR FLU A Negative PCR FLU A (Negative); PCR FLU B Negative PCR FLU B (Negative); PCR RSV Negative PCR RSV (Negative); SARS PCR* Negative SARS-CoV-2 (Negative)
[2024-07-25 22:16] LABS: Free T4 Free Thyroxine* 1.39 ng/dL (0.70-1.85)
[2024-07-25 23:55] LABS: Troponin, Point-of-Care* 0.04 ng/ml (0.01-0.04)
[2024-07-26 00:29] LABS: Troponin I* 0.04 ng/mL (0.01-0.04)
[2024-07-26 01:15] LABS: Troponin I* 0.04 ng/mL (0.01-0.04)
[2024-07-26 01:32] VITALS: BP 132/65; PULSE 58; RESP 20; O2SAT 95
[2024-07-26 01:37] VITALS: BP 201/63; PULSE 82; RESP 20; TEMP 36.7
== END 2024-07-26 01:38 | disposition home or self-care (01) ==
PROVIDERS: Emergency Provider Family Medicine; PCP Family Medicine
DX: R07.9 Chest pain, unspecified (principal); I10 Essential (primary) hypertension
CPT/HCPCS: 36415; 71045; 80053; 83735; 83880; 84439; 84443; 84484; 85025; 87631; 93005; 94761; 96374; 99284; A9270; J1885

== ENCOUNTER 2025-01-13 16:29 | Outpatient (CLI) | payer MEDICARE, BC, SELFPAY | END 2025-01-13 16:30 | disposition home or self-care (01) | LOC: LKVREF 16:29 | PROVIDERS: PCP Family Medicine; Visit Provider Emergency Medicine | DX: N30.00 Acute cystitis without hematuria (principal) | CPT/HCPCS: 87086 ==

== ENCOUNTER 2025-03-08 10:41 | Outpatient (CLI) | payer MEDICARE, BC, SELFPAY | END 2025-03-08 10:42 | disposition home or self-care (01) | PROVIDERS: PCP Family Medicine; Visit Provider Family Medicine | DX: E03.9 Hypothyroidism, unspecified (principal); E78.00 Pure hypercholesterolemia, unspecified; Z79.899 Other long term (current) drug therapy | CPT/HCPCS: 80061; 82607; 84443 ==

== ENCOUNTER 2025-03-17 13:41 | Outpatient (CLI) | payer MEDICARE, BC, SELFPAY | END 2025-03-17 13:42 | disposition home or self-care (01) | LOC: RAD 13:42 | PROVIDERS: PCP Family Medicine; Visit Provider Family Medicine | DX: R01.1 Cardiac murmur, unspecified (principal); I51.7 Cardiomegaly; I34.0 Nonrheumatic mitral (valve) insufficiency | CPT/HCPCS: 93306 ==